=== PATIENT | male | born 1945 | race Caucasian/White ===

== ENCOUNTER → 2018-03-02 08:22 | Outpatient (CLI) | payer MEDICARE, OTHER, SELFPAY ==
[2018-03-02 12:23] LABS: Absolute Lymphocyte Count 1.76 X10^3/ul (0.83-4.51); Basophil# 0.05 X10^3/uL; Basophil% 0.8 % (0-1); Eosinophil# 0.41 X10^3/uL; Eosinophils% 6.2 % (0-5); Hematocrit 40.2 % (40-54); Hemoglobin 13.5 g/dl (13.0-16.5); Lymphocyte # 1.76 X10^3/ul (4.0); Lymphocyte % 26.4 % (19-41); Mean Corp Hgb Conc 33.6 g/gl (32-36); Mean Corpuscular Volume 92.4 fL (80-94); Mean Platelet Vol. 10.6 fl (6.2-12.0); Monocyte# 0.46 X10^3/uL; Monocyte% 6.9 % (0-10); Neutrophil # 3.97 X10^3/uL (2.7-7.7); Neutrophil % 59.5 % (47-70); Platelet Count 238 K/mm3 (150-450); RBC Distribution Width CV 12.3 % (11.6-14.6); RBC Distribution Width SD 40.5 fl (35.1-43.9); Red Blood Count 4.35 M/mm3 (4.6-6.2); White Blood Count 6.7 K/mm3 (4.4-11.0)
[2018-03-02 12:38] LABS: POSITIVE COUNT NO; POSITIVE DIFFERENTIAL NO; POSITIVE MORPHOLOGY NO
[2018-03-02 12:39] LABS: Hemoglobin A1c 6.2 % (4.2-6.3)
[2018-03-02 12:44] LABS: ALB/GLOB Ratio 0.9 RATIO (0.9-2.4); AST(SGOT) 20 U/L (15-37); Alanine Aminotransfer ALT/SGPT 23 U/L (16-61); Albumin, Serum 3.7 g/dL (3.2-5.0); Alkaline Phosphatase 106 U/L (45-117); Anion Gap 8 (5-15); BUN 16 mg/dL (7-18); BUN/Creat Ratio 19.2 RATIO (10-20); Calcium,Total 8.9 mg/dL (8.5-10.1); Chloride 98 mmol/L (98-107); Creatinine, Serum 0.83 mg/dL (0.70-1.30); EST Glomerular Filtration Rate 96 mL/min (>60); Est Glom Filt Rate - Afr Amer 116 mL/min (>60); Globulin 3.9 g/dL (2.2-4.2); Glucose 101 mg/dL (74-106); Potassium 3.9 mmol/L (3.5-5.1); Protein, Total 7.6 g/dL (6.4-8.2); Sodium Level 134 mmol/L (136-145); T4 Free Direct 0.98 ng/dL (0.76-1.46); Thyroid Stim Hormone (TSH) 3.15 uIU/mL (0.358-3.74)
[2018-03-03 16:08] LABS: Free Kappa Light Chains 39.2 mg/L (3.3-19.4); Free Lambda Light Chains 6.2 mg/L (5.7-26.3); Immunoglobulin A 267 mg/dL (61-437); Immunoglobulin G 923 mg/dL (700-1600); Immunoglobulin M 40 mg/dL (15-143); PROEL- A/G Ratio 1.3 (0.7-1.7); PROEL- Alpha-1 Globulin 0.2 g/dL (0.0-0.4); PROEL- Alpha-2 Globulin 0.8 g/dL (0.4-1.0); PROEL- Beta Globulin 1.1 g/dL (0.7-1.3); PROEL- Globulin, Total 3.1 g/dL (2.2-3.9); PROEL- TOTAL PROTEIN 7.1 g/dL (6.0-8.5)
== END ==
PROVIDERS: Family Provider Family Medicine; PCP Family Medicine; Visit Provider Internal Medicine Medical Oncology
DX: R73.01 Impaired fasting glucose (principal); R25.1 Tremor, unspecified; I10 Essential (primary) hypertension; D47.2 Monoclonal gammopathy
CPT/HCPCS: 36415; 80053; 82784; 83036; 83883; 84165; 84439; 84443; 85025

== ENCOUNTER → 2018-08-31 08:52 | Outpatient (CLI) | payer MEDICARE, OTHER, SELFPAY ==
[2018-08-31 12:43] LABS: Absolute Lymphocyte Count 1.77 X10^3/ul (0.83-4.51); Absolute Neutrophil Count 3.5 X10^3/uL (2.0-7.7); Basophil# 0.05 X10^3/uL; Basophil% 0.8 % (0-1); Eosinophil# 0.37 X10^3/uL; Hematocrit 37.4 % (40-54); Hemoglobin 12.7 g/dl (13.0-16.5); Lymphocyte # 1.77 X10^3/ul (4.0); Lymphocyte % 28.8 % (19-41); Mean Corpuscular Hgb 31.5 pg (27.0-32.0); Mean Corpuscular Volume 92.8 fL (80-94); Mean Platelet Vol. 10.6 fl (6.2-12.0); Monocyte# 0.48 X10^3/uL; Monocyte% 7.8 % (0-10); Neutrophil # 3.47 X10^3/uL (2.7-7.7); Neutrophil % 56.4 % (47-70); Platelet Count 230 K/mm3 (150-450); RBC Distribution Width SD 40.7 fl (35.1-43.9); Red Blood Count 4.03 M/mm3 (4.6-6.2); White Blood Count 6.2 K/mm3 (4.4-11.0)
[2018-08-31 12:56] LABS: POSITIVE COUNT NO; POSITIVE DIFFERENTIAL NO; POSITIVE MORPHOLOGY NO
[2018-08-31 13:10] LABS: ALB/GLOB Ratio 0.9 RATIO (0.9-2.4); AST(SGOT) 23 U/L (15-37); Alanine Aminotransfer ALT/SGPT 26 U/L (16-61); Albumin, Serum 3.4 g/dL (3.2-5.0); Alkaline Phosphatase 96 U/L (45-117); Anion Gap 13 (5-15); BUN 16 mg/dL (7-18); BUN/Creat Ratio 19.8 RATIO (10-20); Calcium,Total 8.8 mg/dL (8.5-10.1); Chloride 98 mmol/L (98-107); Creatinine, Serum 0.81 mg/dL (0.70-1.30); EST Glomerular Filtration Rate 99 mL/min (>60); Est Glom Filt Rate - Afr Amer 120 mL/min (>60); Globulin 3.7 g/dL (2.2-4.2); Glucose 115 mg/dL (74-106); Potassium 3.7 mmol/L (3.5-5.1); Protein, Total 7.1 g/dL (6.4-8.2); Sodium Level 135 mmol/L (136-145)
[2018-09-01 15:20] LABS: Free Kappa Light Chains 46.3 mg/L (3.3-19.4); Free Lambda Light Chains 8.2 mg/L (5.7-26.3); Immunoglobulin A 252 mg/dL (61-437); Immunoglobulin G 924 mg/dL (700-1600); Immunoglobulin M 39 mg/dL (15-143); PROEL- A/G Ratio 1.1 (0.7-1.7); PROEL- Albumin 3.5 g/dL (2.9-4.4); PROEL- Alpha-1 Globulin 0.2 g/dL (0.0-0.4); PROEL- Alpha-2 Globulin 0.8 g/dL (0.4-1.0); PROEL- Globulin, Total 3.1 g/dL (2.2-3.9); PROEL- TOTAL PROTEIN 6.6 g/dL (6.0-8.5)
== END ==
PROVIDERS: Internal Medicine Medical Oncology; Family Provider Family Medicine; PCP Family Medicine; Visit Provider Family Medicine
DX: D47.2 Monoclonal gammopathy (principal); I10 Essential (primary) hypertension
CPT/HCPCS: 36415; 80053; 82784; 83883; 84165; 85025

== ENCOUNTER → 2019-02-25 07:59 | Outpatient (CLI) | payer MEDICARE, OTHER, SELFPAY ==
[2019-02-01 11:25] VITALS: BMI 22.2
[2019-02-25 12:16] LABS: Absolute Lymphocyte Count 1.58 X10^3/ul (0.83-4.51); Absolute Neutrophil Count 3.4 X10^3/uL (2.0-7.7); Basophil# 0.06 X10^3/uL; Eosinophil# 0.42 X10^3/uL; Eosinophils% 7.2 % (0-5); Hematocrit 38.3 % (40-54); Hemoglobin 12.9 g/dl (13.0-16.5); Lymphocyte # 1.58 X10^3/ul (4.0); Lymphocyte % 26.9 % (19-41); Mean Corp Hgb Conc 33.7 g/gl (32-36); Mean Corpuscular Hgb 30.6 pg (27.0-32.0); Mean Platelet Vol. 10.3 fl (6.2-12.0); Monocyte# 0.41 X10^3/uL; Neutrophil # 3.39 X10^3/uL (2.7-7.7); Neutrophil % 57.7 % (47-70); POSITIVE COUNT NO; POSITIVE DIFFERENTIAL NO; POSITIVE MORPHOLOGY NO; Platelet Count 203 K/mm3 (150-450); RBC Distribution Width CV 12.4 % (11.6-14.6); RBC Distribution Width SD 40.9 fl (35.1-43.9); Red Blood Count 4.21 M/mm3 (4.6-6.2); White Blood Count 5.9 K/mm3 (4.4-11.0)
[2019-02-25 12:17] LABS: Erythrocyte Sedimentation Rate 3 mm/hr (0-20)
[2019-02-25 12:52] LABS: ALB/GLOB Ratio 1.1 RATIO (0.9-2.4); AST(SGOT) 24 U/L (15-37); Alanine Aminotransfer ALT/SGPT 26 U/L (16-61); Albumin, Serum 3.8 g/dL (3.2-5.0); Alkaline Phosphatase 96 U/L (45-117); Anion Gap 4 (5-15); BUN 17 mg/dL (7-18); Calcium,Total 8.5 mg/dL (8.5-10.1); Chloride 99 mmol/L (98-107); Creatinine, Serum 0.81 mg/dL (0.70-1.30); EST Glomerular Filtration Rate 99 mL/min (>60); Est Glom Filt Rate - Afr Amer 120 mL/min (>60); Globulin 3.5 g/dL (2.2-4.2); Glucose 93 mg/dL (74-106); Potassium 3.7 mmol/L (3.5-5.1); Protein, Total 7.3 g/dL (6.4-8.2); Sodium Level 132 mmol/L (136-145)
[2019-02-26 16:07] LABS: Free Kappa Light Chains 60.4 mg/L (3.3-19.4); Free Lambda Light Chains 6.6 mg/L (5.7-26.3); Immunoglobulin A 258 mg/dL (61-437); Immunoglobulin G 928 mg/dL (700-1600); Immunoglobulin M 39 mg/dL (15-143); PROEL- A/G Ratio 1.4 (0.7-1.7); PROEL- Alpha-1 Globulin 0.3 g/dL (0.0-0.4); PROEL- Alpha-2 Globulin 0.8 g/dL (0.4-1.0); PROEL- Gamma Globulin 0.9 g/dL (0.4-1.8); PROEL- Globulin, Total 2.9 g/dL (2.2-3.9); PROEL- TOTAL PROTEIN 6.9 g/dL (6.0-8.5)
== END ==
PROVIDERS: Family Provider Family Medicine; PCP Family Medicine; Visit Provider Internal Medicine Medical Oncology
DX: I10 Essential (primary) hypertension (principal)
CPT/HCPCS: 80053; 82784; 83883; 84165; 85025; 85652

== ENCOUNTER → 2019-09-13 09:14 | Outpatient (CLI) | payer MEDICARE, OTHER, SELFPAY ==
[2019-03-17 13:00] VITALS: BMI 21.9
[2019-09-13 12:26] LABS: AST(SGOT) 24 U/L (15-37); Alanine Aminotransfer ALT/SGPT 20 U/L (16-61); Albumin, Serum 3.5 g/dL (3.2-5.0); Alkaline Phosphatase 99 U/L (45-117); Anion Gap 8 (5-15); BUN 17 mg/dL (7-18); BUN/Creat Ratio 22.3 RATIO (10-20); Calcium,Total 8.7 mg/dL (8.5-10.1); Chloride 96 mmol/L (98-107); Creatinine, Serum 0.76 mg/dL (0.70-1.30); EST Glomerular Filtration Rate 106 mL/min (>60); Est Glom Filt Rate - Afr Amer 128 mL/min (>60); Globulin 3.5 g/dL (2.2-4.2); Glucose 95 mg/dL (74-106); Potassium 3.8 mmol/L (3.5-5.1); Sodium Level 131 mmol/L (136-145)
[2019-09-13 12:34] LABS: Absolute Lymphocyte Count 1.85 X10^3/uL (0.83-4.51); Absolute Neutrophil Count 3.7 X10^3/uL (2.0-7.7); Basophil# 0.07 X10^3/uL; Basophil% 1.1 % (0-1); Eosinophil# 0.42 X10^3/uL; Eosinophils% 6.4 % (0-5); Hemoglobin 12.3 g/dL (13.0-16.5); Lymphocyte # 1.85 X10^3/ul (4.0); Lymphocyte % 28.1 % (19-41); Mean Corp Hgb Conc 33.2 g/dL (32-36); Mean Corpuscular Hgb 31.3 pg (27.0-32.0); Mean Corpuscular Volume 94.1 fL (80-94); Mean Platelet Vol. 10.2 fl (6.2-12.0); Monocyte# 0.52 X10^3/uL; Monocyte% 7.9 % (0-10); NRBC Flagged by Analyzer 0 % (0-5); Neutrophil % 56.2 % (47-70); Platelet Count 217 K/mm3 (150-450); RBC Distribution Width CV 11.9 % (11.6-14.6); RBC Distribution Width SD 41.1 fl (35.1-43.9); Red Blood Count 3.93 M/mm3 (4.6-6.2); White Blood Count 6.6 K/mm3 (4.4-11.0)
--- NOTE | 2019-09-13 13:00 | RAD_ITS ---
STUDY: X-RAY BONE SURVEY COMPLETE REASON FOR EXAM: Male, 74 years old. MGUS. TECHNIQUE: AP and lateral views of the chest. One view of the pelvis was obtained. 2 views of the cervical spine were obtained. 2 views of the thoracic spine were obtained. 2 views of the lumbar spine were obtained. 1 views of the femur, tibia and fibula. views of the humerus, radius and ulna. : 2 views of the skull were obtained. COMPARISON: None. FINDINGS: CHEST: The lungs are clear and expanded. There is no demonstrated pleural abnormality. There is a right-sided pacemaker in place. Normal size heart. Normal mediastinum and leeanne. Normal visualized pulmonary arteries. There is atherosclerotic calcification of the aortic arch with tortuosity. There are diffuse degenerative changes of the visualized thoracic spine. There is degenerative osteoarthritis of the bilateral shoulders. There is no demonstrated abnormality of the visualized soft tissue structures of the upper abdomen. PELVIS: Abundant fecal debris suggestive of constipation. Normal visualized soft tissue structures. There is narrowing with cortical sclerosis and osteophyte formation of the sacroiliac joint consistent with degenerative osteoarthritic changes. Normal visualized bilateral superior and inferior pubic rami. There are degenerative changes of the pubic symphysis with articular narrowing and sclerosis. Normal ischial tuberosities. Normal visualized right femoral head. There is osteoarthritic spur formation of the right acetabular rim. There is moderate articular joint space narrowing of the right hip. Normal visualized left femoral head. There is osteoarthritic spur formation of the left acetabular rim. There is moderate articular joint space narrowing of the left hip. CERVICAL SPINE: Normal anterior atlantoaxial articulation. Normal odontoid process. Normal cervical lordosis. There is multi-level endplate spondylosis. There is multi-level degenerative disc disease with multilevel disc space narrowing. There is multilevel bilateral facet hypertrophy. The soft tissue structures are unremarkable. THORACIC SPINE: Normal kyphosis of the thoracic spine. There is no substantial scoliosis. There is multilevel endplate spondylosis of the thoracic vertebrae. There is multilevel disc space narrowing of the thoracic spine. No acute fracture. The soft tissue structures are unremarkable. LUMBAR SPINE: Normal lumbar lordosis. There is mild scoliosis, convexity to the left. There is a normal alignment of the vertebrae. There is multilevel endplate spondylosis of the lumbar vertebrae. There is multi-level degenerative disc disease with multi-level disc space narrowing. There is no demonstrated fracture. There is atherosclerotic calcification of the abdominal aorta without a demonstrated aneurysm. RIGHT FEMUR ,TIBIA AND FIBULA: Normal visualized femur, tibia and fibula. Mild edema along the cephalad aspect of the calf. There is no demonstrated fracture or destructive process. LEFT FEMUR ,TIBIA AND FIBULA: Normal visualized femur, tibia and fibula. Mild edema along the cephalad aspect of the calf. There is no demonstrated fracture or destructive process. RIGHT HUMERUS, RADIUS AND ULNA :Normal visualized humerus, radius and ulna. There is no demonstrated fracture or osseous destructive process. There is no demonstrated soft tissue abnormality. LEFT HUMERUS:Normal visualized humerus, radius and ulna. There is no demonstrated fracture or osseous destructive process. There is no demonstrated soft tissue abnormality. SKULL: There is no demonstrated soft tissue swelling. Small lucencies at the level of the parietal bone one on the right measuring 2.5 mm and 2 on the left each measuring approximately 3.4 mm.. Normal visualized facial bones. Normal visualized paranasal sinuses. RAD/Bone Survey Comp(Axial&Append) IMPRESSION: Small lucency within the skull as described above. Underlying multilevel degenerative disease. Electronically Signed: Lisbeth Graves MD at 0:39 EST , Service support ,
[2019-09-14 20:07] LABS: Albumin 3.6 g/dL (2.9-4.4); Alpha-1-Globulins 0.3 g/dL (0.0-0.4); Alpha-2-Globulins 0.8 g/dL (0.4-1.0); Free Kappa Light Chains 56.5 mg/L (3.3-19.4); Free Lambda Light Chains 9.2 mg/L (5.7-26.3); Immunoglobulin A 263 mg/dL (61-437); Immunoglobulin G 973 mg/dL (700-1600); Immunoglobulin M 38 mg/dL (15-143); PROEL- TOTAL PROTEIN 6.7 g/dL (6.0-8.5)
== END ==
PROVIDERS: Family Provider Family Medicine; PCP Family Medicine; Referring Provider Internal Medicine Medical Oncology; Visit Provider Internal Medicine Medical Oncology
DX: D47.2 Monoclonal gammopathy (principal)
CPT/HCPCS: 36415; 77075; 80053; 82784; 83883; 84165; 85025; 86334

== ENCOUNTER → 2019-10-18 09:33 | Outpatient (CLI) | payer MEDICARE, OTHER, SELFPAY ==
[2019-03-17 13:00] VITALS: BMI 21.9
[2019-09-20 13:17] VITALS: BMI 21.9
[2019-10-18 13:19] LABS: Anion Gap 5 (5-15); BUN 16 mg/dL (7-18); BUN/Creat Ratio 20.9 RATIO (10-20); Calcium,Total 8.8 mg/dL (8.5-10.1); Chloride 99 mmol/L (98-107); Creatinine, Serum 0.76 mg/dL (0.70-1.30); EST Glomerular Filtration Rate 105 mL/min (>60); Est Glom Filt Rate - Afr Amer 128 mL/min (>60); Glucose 127 mg/dL (74-106); Potassium 3.8 mmol/L (3.5-5.1); Sodium Level 133 mmol/L (136-145)
== END ==
LOC: LAB.FUTURE 05-04 03:37 → BFHLAB 06-02 15:28
PROVIDERS: Family Provider Family Medicine; PCP Family Medicine; Visit Provider Family Medicine
DX: I10 Essential (primary) hypertension (principal); E87.1 Hypo-osmolality and hyponatremia
CPT/HCPCS: 36415; 80048

== ENCOUNTER → 2020-03-15 08:00 | Outpatient (CLI) | payer MEDICARE, OTHER, SELFPAY ==
[2019-09-20 13:17] VITALS: BMI 21.9
[2020-03-15 12:41] LABS: Absolute Lymphocyte Count 1.77 X10^3/uL (0.83-4.51); Absolute Neutrophil Count 4.2 X10^3/uL (2.0-7.7); Basophil# 0.09 X10^3/uL; Basophil% 1.3 % (0-1); Eosinophil# 0.43 X10^3/uL; Eosinophils% 6.1 % (0-5); Hematocrit 37.4 % (40-54); Hemoglobin 12.8 g/dL (13.0-16.5); Lymphocyte # 1.77 X10^3/ul (4.0); Lymphocyte % 25.2 % (19-41); Mean Corp Hgb Conc 34.2 g/dL (32-36); Mean Corpuscular Hgb 32.4 pg (27.0-32.0); Mean Corpuscular Volume 94.7 fL (80-94); Mean Platelet Vol. 10.1 fl (6.2-12.0); Monocyte# 0.52 X10^3/uL; Monocyte% 7.4 % (0-10); NRBC Flagged by Analyzer 0 % (0-5); Neutrophil # 4.19 X10^3/uL (2.7-7.7); Neutrophil % 59.6 % (47-70); Platelet Count 231 K/mm3 (150-450); RBC Distribution Width CV 12.1 % (11.6-14.6); RBC Distribution Width SD 42.2 fl (35.1-43.9); Red Blood Count 3.95 M/mm3 (4.6-6.2)
[2020-03-15 12:43] LABS: AST(SGOT) 23 U/L (15-37); Alanine Aminotransfer ALT/SGPT 23 U/L (16-61); Albumin, Serum 3.6 g/dL (3.2-5.0); Alkaline Phosphatase 107 U/L (45-117); Anion Gap 7 (5-15); BUN 18 mg/dL (7-18); BUN/Creat Ratio 23.3 RATIO (10-20); Bilirubin, Direct 0.17 mg/dL (0.00-0.30); Calcium,Total 8.8 mg/dL (8.5-10.1); Chloride 98 mmol/L (98-107); Cholesterol 159 mg/dL (200); Creatinine, Serum 0.77 mg/dL (0.70-1.30); EST Glomerular Filtration Rate 104 mL/min (>60); Est Glom Filt Rate - Afr Amer 126 mL/min (>60); Globulin 3.7 g/dL (2.2-4.2); Glucose 98 mg/dL (74-106); High Density Lipoprotein 53 mg/dL; LDH 236 U/L (87-241); Potassium 3.7 mmol/L (3.5-5.1); Protein, Total 7.3 g/dL (6.4-8.2); Sodium Level 134 mmol/L (136-145); Triglycerides 86 mg/dL; Very Low Density Lipoprotein 17 mg/dL (5-40)
[2020-03-18 03:06] LABS: Albumin 3.8 g/dL (2.9-4.4); Alpha-1-Globulins 0.3 g/dL (0.0-0.4); Alpha-2-Globulins 0.7 g/dL (0.4-1.0); Gamma Globulin 0.9 g/dL (0.4-1.8); Immunoglobulin A 284 mg/dL (61-437); Immunoglobulin G 972 mg/dL (603-1613); Immunoglobulin M 30 mg/dL (15-143); PROEL- TOTAL PROTEIN 6.7 g/dL (6.0-8.5)
[2020-03-18 12:52] LABS: Immunoglobulin E 3 IU/mL (6-495)
== END ==
PROVIDERS: PCP Family Medicine; Referring Provider Internal Medicine Cardiovascular Disease; Visit Provider Internal Medicine Medical Oncology
DX: D47.2 Monoclonal gammopathy (principal); E78.5 Hyperlipidemia, unspecified
CPT/HCPCS: 36415; 80053; 80061; 82248; 82784; 82785; 83615; 84165; 85025; 86334

== ENCOUNTER 2020-12-21 21:27 | Outpatient (RCR) | payer MEDICARE, OTHER, SELFPAY ==
[2020-09-19 13:41] VITALS: BMI 21.4
[2020-12-21] MEDS: COVID-19 VACC, MRNA(PFIZER)/PF 30 MCG/0.3 ML SYRINGE IM (09:58)
[2021-01-11] MEDS: COVID-19 VACC, MRNA(PFIZER)/PF 30 MCG/0.3 ML SYRINGE IM (09:54)
== END 2021-03-20 23:59 ==
LOC: IMMUN 21:27
PROVIDERS: PCP Family Medicine; Visit Provider Family Medicine
DX: Z23 Encounter for immunization (principal)
CPT/HCPCS: 0001A; 0002A; 91300

== ENCOUNTER 2021-04-18 10:25 | Day surgery (SDC) | payer MEDICARE, OTHER, SELFPAY ==
[2021-03-21 13:37] VITALS: BMI 21.3
--- NOTE | 2021-04-12 09:44 | EKG12_ITS ---
Test Reason : PREOP Blood Pressure : / mmHG Vent. Rate : 065 BPM Atrial Rate : 065 BPM P-R Int : 300 ms QRS Dur : 088 ms QT Int : 410 ms P-R-T Axes : 082 061 058 degrees QTc Int : 426 ms Sinus rhythm with 1st degree A-V block Otherwise normal ECG Confirmed by LUISITO ARELLANO, DAMIR ([id number]), supervising editor news reel OLIVER DAS ([id number]) on 04/13/2021 12:47:36 PM Referred By: Jovanni Granda Confirmed By:MITRA JORGE MD
[2021-04-12 10:41] LABS: Partial Thromboplast Time 29.2 Seconds (24.1-36.2)
[2021-04-18] VITALS (12 sets, daily range): BP systolic 109–142; BP diastolic 61–81; PULSE 60–69; RESP 14–16; TEMP 35.6–36.9; O2SAT 96–100; BMI 19.8
[2021-04-18] MEDS: Lactated Ringers 1,000 ML 100 ML IV ×2 (11:13→14:47)
--- NOTE | 2021-04-18 12:45 | PROS_PTH ---
PATIENT: FELI CASTILLO LOC: [facility] [place] U#:[id number] AGE/SX: 76/M ROOM: RE04/18/[address]: Dr. Jovanni Granda MD : 1945 BED: DIS: 04/20/2021 SPEC #: [id number] RECD: 04/19/21 06:34 STATUS: RACHEL DOMINGUEZ #: [id number] EDWARD: 04/18/21 12:[address]: Jovanni Granda DEPT: SURGICAL PATHOLOGY RECD BY: Echo Chacon ENTERED: 04/19/21 07:40 SP TYPE: TURP OTHR DR: Dr. Bruce Washington MD Tissues: Prostate, NOS Procedures: Surgery Specimen Level IV HEADER OPERATION: Cystoscopy, transurethral resection of prostate PRE-OP DIAGNOSIS: BPH with obstruction/lower urinary tract symptoms TISSUE SUBMITTED: Prostate tissue MICROSCOPIC DIAGNOSIS Prostate, transurethral resection: Benign nodular hyperplasia, glandular and stromal types. Chronic inflammation. Urothelium with mild chronic inflammation. AM:ascencion 04/20/2021 MICROSCOPIC DESCRIPTION Slides are reviewed. GROSS DESCRIPTION Received is one container labeled with the patient's name and designated prostate tissue. The specimen consists of multiple irregular fragments of pink-yu, rubbery, soft tissue that in aggregate weigh 8.5 gm and measure in aggregate 6 x 4 x 0.5 cm. The entire specimen is submitted in six cassettes. / AM:ascencion 04/19/21 TC:3 CPT: 73894
--- NOTE | 2021-04-18 13:13 | HP.PCM_ITS ---
HPI - General HPI Narrative FELI CASTILLO, is a 76 M who presents for transurethral resection of the prostate he has a very distended bladder and has obstructive prostate very high symptom score difficulty emptying his bladder all the way incomplete emptying. He has been on maximal medical therapy and we plan to proceed with surgical r eview revision of the prostate with a TURP. [facility] Medical History (Updated 04/18/21 @ 13:[address] Jovanni Granda MD) Benign essential tremor Cardiac pacemaker in situ (~2006) Cardiology follow-up encounter Carotid artery disease Former smoker GERD (gastroesophageal reflux disease) High cholesterol History of atrial fibrillation History of pacemaker History of stress test History of vertigo Hx of echocardiogram Hyperlipidemia Low iron MGUS (monoclonal gammopathy of unknown significance) Ocular hypertension Paroxysmal atrial flutter Prostate disease Seizures Sick sinus syndrome Wears glasses Home Medications Lactobac acidoph-fructooligos 1 ea PO DAILY 06/27/16 [History Last Taken U nknown] cholecalciferol (vitamin D3) 1,000 unit PO DAILY 06/27/16 [History Last Taken Unknown] lamotrigine 50 mg PO BID 06/27/16 [History Last Taken 04/18/21] levetiracetam 750 mg PO BID 06/27/16 [History Last Taken 04/18/21] loratadine 10 mg PO PRN PRN 06/27/16 [History Last Taken Unknown] multivitamin with folic acid 1 tab PO DAILY 06/27/16 [History Last Taken Unknown] qb-hj-QE-vit E-ysfnd-cptx-zeax 1 ea PO DAILY 06/27/16 [History Last Taken Unknown] omeprazole 20 mg PO DAILY 06/27/16 [History Last Taken 04/18/21] pravastatin 40 mg PO DAILY 06/27/16 [History Last Taken Unknown] temazepam 30 mg PO QHS 06/27/16 [History Last Taken Unknown] aspirin 325 mg PO DAILY@0800 09/10/17 [History Last Taken 04/09/21] ascorbic acid (vitamin C) 1,000 mg tablet 1 g PO QDAY tab 12/12/17 [History Last Taken Unknown] quinapril 10 mg tablet 5 mg PO DAILY tab 02/14/20 [History Last Taken 04/18/21] timolol 0.5 % eye drops 1 drp RIGHT EYE BID 02/14/20 [History Last Taken Unknown] latanoprost 1 drp EACH EYE DAILY 04/11/21 [History Last Taken Unknown] omega 8-dyn-hrm-fish oil [Fish Oil] 1 cap PO TID 04/11/21 [History Last Taken 04/11/21] ciprofloxacin HCl [Cipro] 500 mg PO BID #14 tab 04/18/21 [Rx Last Taken Unknown] Allergy/AdvReac Type Severity Reaction Status Date / Time carbamazepine Allergy disorientation Verified 04/18/21 10:31 and elevated anxiety,fluid retention codeine AdvReac Vomiting Verified 04/18/21 10:31 guaifenesin AdvReac Vomiting Verified 04/18/21 10:31 [From [facility]] Family History Mother CVA (cerebral vascular accident) Diabetes Father Hypertension Surgical History (Updated 04/11/21 @ 10:24 by Izabel Nugent) History of arthroscopy of right knee History of cataract surgery History of detached retina repair Hx of colonoscopy Social History Smoking Status: Former smoker alcohol intake: never substance use type: does not use ROS Constitutional Constitutional: Denies chills, fever(s) or malaise Eyes Eyes: Denies blurry vision or change in vision ENT HEENT: Reports none Cardiovascular Cardiovascular: Denies chest pain or palpitations Respiratory/Chest Respiratory/Chest: Denies cough or shortness of breath with exertion Gastrointestinal Gastrointestinal: Denies abdominal pain, constipation or diarrhea Genitourinary Genitourinary: Reports systems reviewed and no addt'l complaints, except as documented Musculoskeletal Musculoskeletal: Denies back pain, joint stiffness or joint swelling Integumentary Integumentary: Denies dry skin, jaundice, lesions or rash Neurologic Neurologic: Denies confusion, syncope or weakness Psychiatric Psychiatric: Reports none; Denies anxiety or depression Endocrine Endocrinology: Denies excessive sweating, fatigue or flushing Hematologic/Lymphatic Hematologic/Lymphatic: Denies anemia, easy bleeding or easy bruising Vital Signs Vital Signs Vital Signs: 04/18/21 10:55 Temperature 97.3 F L Temperature Source Temporal Pulse Rate 63 Respiratory Rate 16 Respiratory Pattern Normal Blood Pressure 116/61 Blood Pressure Mean 79 Blood Pressure Source Monitor Blood Pressure Position Semi-Fowlers Blood Pressure Location Left Arm Pulse Ox 99 Oxygen Delivery Method Room Air Weight Weight: 59.2 kg Body Mass Index (BMI) 19.8 Physical Exam Const alert and oriented x3 General Appearance: cooperative HEENT normocephalic, head/scalp atraumatic, EAC's normal and TM's normal bilaterally Eyes PERRL and EOMs intact bilaterally Pupil: sluggish Neck no lymphadenopathy, supple and no JVD General: trachea midline Lymph Lymphatic: no lymphadenopathy noted, lymphedema and lymphadenopathy Resp normal respiratory effort, normal air movement and clear to auscultation bilaterally Cardio regular rate, regular rhythm and peripheral pulses 2+ throughout GI soft to palpation, non-tender and non-distended Extremity normal capillary refill and no clubbing, cyanosis or edema General Extremity: no tenderness to palpation of joints or extremities Skin no rashes or lesions noted General Skin Exam: turgor normal Lesions: no lesions Rashes: no rashes Neuro CN's II-XII intact bilaterally Speech: speech normal Motor Exam: strength 5/5 throughout; Negative for general weakness Psych thought process normal, cooperative and affect normal Appearance: appropriate Assessment & Plan Assessment/Plan (1) BPH with obstruction/lower urinary tract symptoms: PLAN: Plan to proceed with a transurethral resection of the prostate
--- NOTE | 2021-04-18 13:14 | PCM.DC ---
Discharge Instructions Diet Discharge Diet: No restrictions Activity Discharge Activity: Return to Normal Activity and May Not Drive (while taking narcotic pain medications.) Dressing / Incision Call your doctor if you observe: Fever of 101 or Higher Follow Up Care Please Follow Up With: Jovanni Granda MD When: Call [phone] for an appointment Test Results: Test results from this visit will be discussed in further detail at your follow-up appointment, if applicable. Discharge Plan Admission Primary Reason for Your Visit: tur Attending Provider: Jovanni Granda Primary Care Provider: Bruce Washington Instructions Patient Instructions: [facility] Home Recovery Discharge Orders/Prescriptions Prescriptions: New ciprofloxacin HCl [Cipro] 500 mg tablet 500 mg PO BID Qty: 14 RF: 0 Continued ascorbic acid (vitamin C) 1,000 mg tablet 1 g PO QDAY RF: 0 timolol 0.5 % drops 1 drp RIGHT EYE BID RF: 0 pravastatin 40 MG tablet 40 mg PO DAILY RF: 0 temazepam 30 MG capsule 30 mg PO QHS RF: 0 omeprazole 20 MG capsule 20 mg PO DAILY RF: 0 levetiracetam 750 MG tablet 750 mg PO BID RF: 0 lamotrigine 100 MG tablet 50 mg PO BID RF: 0 loratadine 10 MG tablet 10 mg PO PRN PRN (Reason: Allergies) RF: 0 cholecalciferol (vitamin D3) 1,000 UNIT tablet 1,000 unit PO DAILY RF: 0 multivitamin with folic acid 1 TABLET tablet 1 tab PO DAILY RF: 0 bx-vc-UE-vit L-rywhf-pkmi-zeax 1 EACH tablet 1 ea PO DAILY RF: 0 Lactobac acidoph-fructooligos 1 EACH tablet 1 ea PO DAILY RF: 0 quinapril 10 mg tablet 5 mg PO DAILY RF: 0 latanoprost 0.005 % Drops 1 drp EACH EYE DAILY RF: 0 omega 5-cho-ijn-fish oil [Fish Oil] 1,200 (144-216) mg Capsule 1 cap PO TID RF: 0 Held aspirin 325 MG tablet 325 mg PO DAILY@0800 RF: 0 Hold Instructions: Resume on 05/02/21. Discontinued finasteride 5 mg tablet 5 mg PO DAILY RF: 0 tamsulosin 0.4 MG capsule 0.4 mg PO DAILY RF: 0 Referrals / Follow Up: Jovanni Granda MD [STAFF PHYSICIAN] - Bruce Washington MD [Primary Care Provider] - Disposition Disposition (needs filled in before D/C Order can be placed): Home, Self Care
[2021-04-18] MEDS: Cefazolin 2 GM in 0.9% Normal Saline 100 ML IV (13:28)
[2021-04-18] MEDS: Lubricating Jelly 60 GM Tube 30 GM TOPICAL (13:41)
--- NOTE | 2021-04-18 14:20 | PCM.OPRPT ---
Report of Operation Date of Procedure: 04/18/21 Pre-Operative Diagnosis: BPH with obstruction retention of urine Post-Operative Diagnosis: Same Surgery/Procedure Performed:: Transurethral section of prostate Description of Surgical Findings:: In the preoperative setting I discussed with the patient how the surgery would be done with expect afterwards. We discussed how a prostate resection is done and we discussed the risk of the surgery including, bleeding, infection, retrograde ejaculation, changes with ejaculation or intercourse,. We discussed the possibility that the resection of the prostate may not alleviate his urinary symptoms. We discussed the small risk of developing scar tissue along the urethral channel and strictures. We also discussed the chance of the prostate could grow back and he may need further surgery or treatment in the future for prostate problems. Patient was taken back to the operating room, timeout procedure was performed, he was identified and marked and placed on the operating room table. He underwent general anesthesia. He was placed in dorsolithotomy position. Penis and testicles were prepped and draped in usual sterile fashion. Went into the bladder using the visual obturator with a resectoscope. Once inside the bladder identified the right and left ureteral orifice. I then identified the prostate and the anatomy of the prostate. I marked out the area of the sphincter and the verumontanum was identified. I then proceeded with the prostate resection first resected the median lobe. And then resected the right lobe of the prostate. Then to resect the left lobe of the prostate. I then resected the apical tissue of the prostate. Made sure that there was no injury to the sphincter or the verumontanum was still intact. At the end of the resection all the chips were Ellik out of the bladder. I then identified the left and right ureteral orifice and these were confirmed to be in good position and effluxing and not injured. The resectoscope was removed, a 22 German catheter was placed into the bladder on continuous irrigation. And the urine was fairly light pink color and draining normally. He was taken back to the PACU in good condition. Of note he had a very stretched out bladder noticed at the end of the case, very atonci looking bladder. Surgeon: Jovanni Granda Type of Anesthesia: General Drains: 22 German three-way Admit VTE Documentation VTE Present on Admission: No VTE Mechan Device Prophylaxis: SCD's
[2021-04-18] MEDS: Ketorolac 15 MG/ML Vial IV (15:30)
[2021-04-18] MEDS: Pravastatin 40 MG Tablet PO (20:29)
[2021-04-18] MEDS: levETIRAcetam 750 MG Tablet PO (20:29)
[2021-04-18] MEDS: lamoTRIgine 100 MG Tablet 50 MG PO (20:29)
[2021-04-18] MEDS: Docusate Sodium 100 MG Capsule 200 MG PO (20:29)
[2021-04-18] MEDS: Timolol 0.5% 5ML OPTH.BTL 1 DRP RIGHT EYE (20:29)
[2021-04-18] MEDS: 0.9% Normal Saline 1,000 ML 125 ML IV ×2 (20:34→22:31)
[2021-04-18] MEDS: Ciprofloxacin 400 MG/200 ML BAG 200 MG IV (21:24)
[2021-04-18] MEDS: Temazepam 15 MG Capsule 30 MG PO (22:30)
[2021-04-19 00:49] VITALS: BP 123/62; PULSE 60; RESP 16; TEMP 36.4; O2SAT 98
[2021-04-19 04:49] VITALS: BP 113/64; PULSE 60; RESP 16; TEMP 36.6; O2SAT 97
[2021-04-19] MEDS: Docusate Sodium 100 MG Capsule 200 MG PO ×2 (08:34→20:01)
[2021-04-19] MEDS: levETIRAcetam 750 MG Tablet PO ×2 (08:35→20:00)
[2021-04-19] MEDS: Pantoprazole Sodium 20 MG Tablet PO (08:44)
[2021-04-19] MEDS: Ciprofloxacin 400 MG/200 ML BAG 200 MG IV (08:44)
[2021-04-19] MEDS: Lisinopril 5 MG Tablet PO (08:45)
[2021-04-19] MEDS: lamoTRIgine 100 MG Tablet 50 MG PO ×2 (08:45→20:00)
[2021-04-19] MEDS: Latanoprost 0.005% 1 Bottle 1 DRP EACH EYE (08:47)
[2021-04-19] MEDS: Timolol 0.5% 5ML OPTH.BTL 1 DRP RIGHT EYE ×2 (08:50→20:01)
[2021-04-19 09:00] VITALS: BP 116/56; PULSE 60; RESP 18; TEMP 36.4; O2SAT 100
--- NOTE | 2021-04-19 14:58 | NURSING ---
Pt has only voided 175ml post vizcarra removal and bladder scanned for 753.
--- NOTE | 2021-04-19 15:06 | CHAPLAIN ---
Type of Pastoral Visit _x__ Initial Visit ___ Follow-up Visit ___ On-call Visit ___ General Patient Visit ___ Spiritual Assessment ___ Family Conference ___ Bereavement ___ Rapid Response ___ Code Blue ___ Other (describe below) Pastoral Care Referral From _x__ Patient ___ Family ___ Nurse ___ Physician ___ Family Services Manager ___ Founder Chairman And Chief Creative Officer ___ Other (describe below) Sacrament/Intervention _x__ Active listening ___ Anointing ___ Rastafari _x__ Bereavement ___ Communion ___ Day exploration ___ _x__ Life review _x__ Prayer ___ Reconciliation ___ Sacrament of Sick _x__ Supportive presence ___ Wedding ___ Other (describe below) Pastoral Comments patient remembers this mule developer due to fact that his was a patient in hospital before she in 2019; pt talks extensively about his and his grieving process; pt states he has not been able to talk to someone about this experience/emotions and so appreciates this opportunity given to revisit these feelings and express them; pt welcomes spiritual care support and prayers
--- NOTE | 2021-04-19 15:28 | NURSING ---
Pt voided again, voided another 100cc of bright red blood. This nurse bladder scanned pt again per pt request and it was 735ml.
[2021-04-19 15:29] VITALS: BP 156/59; PULSE 60; RESP 18; TEMP 36.4; O2SAT 100
[2021-04-19] MEDS: Pravastatin 40 MG Tablet PO (18:42)
[2021-04-19 21:30] VITALS: BP 132/64; PULSE 64; RESP 16; TEMP 36.8; O2SAT 97
[2021-04-19] MEDS: Temazepam 15 MG Capsule 30 MG PO (23:24)
[2021-04-20 03:26] VITALS: BP 141/75; PULSE 66; RESP 16; TEMP 36.8; O2SAT 98
[2021-04-20] MEDS: Pantoprazole Sodium 20 MG Tablet PO (07:06)
--- NOTE | 2021-04-20 07:52 | PCM.PN.BLA ---
Progress Note dc vizcarra home after voids pt refused to go home yesterday
[2021-04-20 08:34] VITALS: BP 157/80; PULSE 64; RESP 18; TEMP 37.2; O2SAT 100
[2021-04-20] MEDS: Docusate Sodium 100 MG Capsule 200 MG PO (08:35)
[2021-04-20] MEDS: lamoTRIgine 100 MG Tablet 50 MG PO (08:36)
[2021-04-20] MEDS: levETIRAcetam 750 MG Tablet PO (08:36)
[2021-04-20] MEDS: Lisinopril 5 MG Tablet PO (08:36)
[2021-04-20] MEDS: Latanoprost 0.005% 1 Bottle 1 DRP EACH EYE (08:37)
[2021-04-20] MEDS: Timolol 0.5% 5ML OPTH.BTL 1 DRP RIGHT EYE (08:38)
--- NOTE | 2021-04-20 12:25 | CASEMGMT ---
VIRGINIA DAVISON in to pt room per request of charge nurse to discuss HHC. Discussed with pt his vizcarra catheter. He is wishing to have HHC come daily to change his leg bag to vizcarra bag. Made pt aware that HHC could not come daily to do this. Pt does not qualify as he is not homebound either. Pt states he has no one who is able to help him. He states he wished he did not have this surgery. Discussed the option of private duty to come for this. Pt is agreeable to receiving list. Discussed with patient the option of going home with a vizcarra bag instead of leg bag as it would require less emptying and less changing back and forth. Pt instructed on keeping bag lower than bladder level. He verbalizes understanding. Pt asked if there is a canvas pouch that the vizcarra could go in. This CM is not aware of this. Updated charge nurseEvelia of plan for vizcarra bag at home with private duty list. 1245- RN CM back to pt room to provide private duty list. Pt states he just got off the phone with his friend who is a WOOD MOLDER. She is agreeable to coming over nightly to switch leg bag to vizcarra. Private duty list still given. Updated charge nurse of new plan. Pt denies further needs.
== END 2021-04-20 13:15 | disposition home or self-care (01) ==
LOC: SDC 10:26 → AC 13:10 → MS3 04-19 10:42
PROVIDERS: Anesthesiology; PCP Family Medicine; Referring Provider Urology; Visit Provider Urology
PROC: (CPT 52601; principal; 2021-04-18 12:35)
DX: N40.1 Benign prostatic hyperplasia with lower urinary tract symptoms (principal); N13.8 Other obstructive and reflux uropathy; R33.8 Other retention of urine; N39.490 Overflow incontinence; R35.0 Frequency of micturition; R39.14 Feeling of incomplete bladder emptying; R35.1 Nocturia; N32.89 Other specified disorders of bladder; I48.92 Unspecified atrial flutter; D47.2 Monoclonal gammopathy; E78.5 Hyperlipidemia, unspecified; Z79.82 Long term (current) use of aspirin; Z79.899 Other long term (current) drug therapy; Z87.891 Personal history of nicotine dependence; Z95.0 Presence of cardiac pacemaker
CPT/HCPCS: 52601; 36415; 85730; 88305; 93005; 99251; J7030; J7120; G0463; J0744; J2405

== ENCOUNTER → 2021-07-06 12:25 | Outpatient (CLI) | payer MEDICARE, OTHER, SELFPAY ==
--- NOTE | 2021-07-06 14:11 | TELEMED_ITS ---
[facility] Telemed has confirmed receipt of a request for visit. This document confirms receipt of the order initiating the consult. To find the results of the consultation, please view the patient's reports for the scanned Telemed Consult.
== END ==
PROVIDERS: PCP Family Medicine; Referring Provider Psychiatry & Neurology Neurology; Visit Provider Psychiatry & Neurology Neurology
DX: G40.909 Epilepsy, unspecified, not intractable, without status epilepticus (principal)
CPT/HCPCS: 95819

== ENCOUNTER 2021-12-16 13:11 | Emergency (ER) | payer MEDICARE, OTHER, SELFPAY ==
[2021-12-16 13:12] VITALS: BP 143/94; PULSE 86; RESP 18; TEMP 36.1; O2SAT 98; BMI 21.6
--- NOTE | 2021-12-16 13:29 | US_ITS ---
STUDY: SCROTUM ULTRASOUND REASON FOR EXAM: Male, 76 years old. Pain TECHNIQUE: Ultrasound evaluation of the scrotum was performed with color Doppler and static madrid-scale imaging. COMPARISON: None. FINDINGS: RIGHT TESTICLE INTRATESTICULAR: There is a normal size of the right testicle. The right testicle measures 2.5 x 3.3 x 2.4 cm. There is a homogenous echotexture. There is normal arterial and normal venous vascularity. There is no demonstrated right testicular mass or cyst. EXTRATESTICULAR: The epididymis is normal in size. The epididymis head measures 1.2 x 1.4 x 0.6 cm. There is normal vascularity of the epididymis. There is a well-defined cystic structure within the epididymis, without internal echoes, consistent with an epididymal cyst. There is no demonstrated hydrocele. There is no demonstrated varicocele. There is no demonstrated extratesticular mass or cyst. LEFT TESTICLE INTRATESTICULAR: There is a normal size of the left testicle. The left testicle measures 3.7 x 2.7 x 2.4 cm. There is a homogenous echotexture. There is increased arterial and increased venous vascularity. There is no demonstrated left testicular mass or cyst. EXTRATESTICULAR: The epididymis is enlarged. The epididymis head measures 1.2 x 3.0 x 0.8 cm. There is increased (hyperemic) vascularity of the epididymis. There is a well-defined cystic structure within the epididymis, without internal echoes, consistent with an epididymal cyst. There is a small hydrocele. There is no demonstrated varicocele. There is no demonstrated extratesticular mass or cyst. US/Testicular with Arterial Flow IMPRESSION: No testicular torsion. Suspect left epididymoorchitis. Electronically Signed: Nas Castillo MD at 15:45 EST ,
--- NOTE | 2021-12-16 13:29 | EX.ED.GUMALE ---
HPI History of Present Illness Chief Complaint: Male Pain/Injury Narrative Narrative: Patient with past medical history of benign prostatic hypertrophy, has to self cath at least twice a day presents with pain in his left testicle that he has had since yesterday. He states that he got up after doing a jigsaw puzzle and felt pain on the underside of his left testicle. He thought that maybe he had pulled a muscle in his groin, but his symptoms have not improved. He has pain that is worse with movement of his leg and of his testicle. He denies any dysuria other than the fact that he does have to use a lubricated catheter because he has low flow problems with urine. He denies any fevers or chills. No trauma to the area. He denies any erythema or noted swelling of his testicle. No gross hematuria. [facility] Medical History Benign essential tremor Cardiac pacemaker in situ (~2006) Cardiology follow-up encounter Carotid artery disease Former smoker GERD (gastroesophageal reflux disease) High cholesterol History of atrial fibrillation History of pacemaker History of stress test History of vertigo Hx of echocardiogram Hyperlipidemia Low iron MGUS (monoclonal gammopathy of unknown significance) Ocular hypertension Paroxysmal atrial flutter Prostate disease Seizures Sick sinus syndrome Wears glasses Home Medications Lactobac acidoph-fructooligos 1 ea PO DAILY 06/27/16 [History Last Taken Unknown] cholecalciferol (vitamin D3) 1,000 unit PO DAILY 06/27/16 [History Last Taken Unknown] loratadine 10 mg PO PRN PRN 06/27/16 [History Last Taken Unknown] multivitamin with folic acid 1 tab PO DAILY 06/27/16 [History Last Taken Unknown] ml-fh-WO-vit E-ootur-juqu-zeax 1 ea PO DAILY 06/27/16 [History Last Taken Unknown] omeprazole 20 mg PO DAILY 06/27/16 [History Last Taken 04/18/21] pravastatin 40 mg PO DAILY 06/27/16 [History Last Taken Unknown] temazepam 30 mg PO QHS 06/27/16 [History Last Taken Unknown] aspirin 325 mg PO DAILY@0800 09/10/17 [History Last Taken 04/09/21] ascorbic acid (vitamin C) 1,000 mg tablet 1 g PO QDAY tab 12/12/17 [History Last Taken Unknown] quinapril 10 mg tablet 5 mg PO DAILY tab 02/14/20 [History Last Taken 04/18/21] timolol 0.5 % eye drops 1 drp RIGHT EYE BID 02/14/20 [History Last Taken Unknown] latanoprost 1 drp EACH EYE DAILY 04/11/21 [History Last Taken Unknown] omega 4-uin-xdu-fish oil [Fish Oil] 1 cap PO TID 04/11/21 [History Last Taken 04/11/21] levetiracetam 750 mg tablet 750 mg PO BID #180 tab 06/14/21 [Rx Last Taken Unknown] bethanechol chloride 5 mg tablet 5 mg PO TID 09/13/21 [History Last Taken Unknown] lamotrigine 100 mg tablet 50 mg PO BID #90 tab 12/13/21 [Rx Last Taken Unknown] ciprofloxacin HCl 500 mg PO BID #28 tab 12/16/21 [Rx Last Taken Unknown] Allergy/AdvReac Type Severity Reaction Status Date / Time carbamazepine Allergy disorientation Verified 12/16/21 13:15 and elevated anxiety,fluid retention codeine AdvReac Vomiting Verified 12/16/21 13:15 guaifenesin AdvReac Vomiting Verified 12/16/21 13:15 [From [facility]] Family History Mother CVA (cerebral vascular accident) Diabetes Father Hypertension Surgical History History of arthroscopy of right knee History of cataract surgery History of detached retina repair Hx of colonoscopy Social History Smoking Status: Former smoker alcohol intake: never substance use type: does not use ROS ROS ED ROS Narrative Constitutional: No fever, no chills. HEENT: No sore throat. No neck pain. No loss of vision. No rhinorrhea. Cardiovascular: No chest pain. No palpitations. No pedal edema. Respiratory: No cough, no shortness of breath. Abdominal: No abdominal pain. No nausea. No vomiting. Genitourinary: No dysuria except for baseline low flow requiring catheterization. No hematuria. Positive left testicular pain. Musculoskeletal: No myalgias. No arthralgias. Neurologic: No headaches. No dizziness. No lightheadedness. Skin: No rash. No change in color. Psychiatric: No depression. No anxiety. EXAM Physical Exam Narrative Exam Narrative: Afebrile. Vital signs noted. HEENT: Normocephalic. Atraumatic. PERRL, EOMI. Neck soft and supple. No point tenderness or step off. Cardiovascular: Regular rate and rhythm. No murmurs, rubs, or gallops appreciated. Respiratory: No tachypnea. Lungs clear to auscultation bilaterally. Gastrointestinal: Abdomen soft, nontender, with normoactive bowel sounds. No rebound or guarding. Neurological: Awake. Alert. Nonfocal, nonlateralizing. Skin: No rash. Normal color. No pallor. Musculoskeletal: No pedal edema. Full range of motion extremities. Genitourinary: Chaperoned examination reveals left epididymal tenderness and tenderness to palpation of left testicle. No noted hernia. No blood or discharge at penile meatus. Const Vital Signs: 12/16/21 13:12 Temperature 96.9 F L Temperature Source Temporal Pulse Rate 86 Respiratory Rate 18 Blood Pressure 143/94 H Blood Pressure Mean 110 Pulse Ox 98 Oxygen Delivery Method Room Air MDM MDM MDM Narrative Medical decision making narrative: Urinalysis will be obtained. I do feel that given his testicular pain that he requires ultrasound to rule out any testicular torsion. His urinalysis shows 0-5 WBCs and negative nitrites. His ultrasound shows no evidence of testicular torsion, but there is suspected left epididymoorchitis. At this point in time, he was given his first dose of ciprofloxacin here in the emergency department and prescription written for the next 2 weeks. He will follow up with his urologist, Dr. Granda in the next 3 to 5 days. I feel he can be discharged safely home with follow-up. He will continue to self cath as needed as he will be on antibiotics. He was told to wear more supportive undergarments. Return instructions to the emergency department were reviewed. Disposition is discharged home in stable condition. Lab Data Attestation: I reviewed the patient's lab results. Labs: Laboratory Results - last 24 hr 12/16/21 14:00 Urine Color Yellow Urine Clarity Clear Urine pH 7.0 Ur Specific [place] 1.010 Urine Protein 30 H Urine Glucose (UA) Normal Urine Ketones 15 H Urine Occult Blood NEGATIVE Urine Nitrite NEGATIVE Urine Bilirubin Negative Urine Urobilinogen Normal Ur Leukocyte Esterase 25 H Urine RBC 0 SEEN Urine WBC 0-5 SEEN Ur Squamous Epith Cells 0 SEEN Urine Bacteria 0 SEEN Urine Mucus 0 SEEN Radiography Diagnostic Testing: Clinical Impression(s) from Imaging Studies Testicular Ultrasound 12/16/21 13:29 IMPRESSION: No testicular torsion. Suspect left epididymoorchitis. Electronically Signed: Nas Castillo MD at 15:45 EST Reading Location ID and State: [facility] / [place] Tel , Service support , Discharge Plan Triage Chief Complaint: Male Pain/Injury ED Provider: Donn Hill Dx/Rx/DC Orders Clinical Impression: Epididymoorchitis, Pain in testicle Instructions: ED Epididymitis, ED Orchitis Prescriptions: New ciprofloxacin HCl 500 mg tablet 500 mg PO BID Qty: 28 RF: 0 No Action ascorbic acid (vitamin C) 1,000 mg tablet 1 g PO QDAY RF: 0 timolol 0.5 % drops 1 drp RIGHT EYE BID RF: 0 bethanechol chloride 5 mg tablet 5 mg PO TID RF: 0 levetiracetam 750 mg tablet 750 mg PO BID Qty: 180 RF: 1 pravastatin 40 MG tablet 40 mg PO DAILY RF: 0 temazepam 30 MG capsule 30 mg PO QHS RF: 0 omeprazole 20 MG capsule 20 mg PO DAILY RF: 0 loratadine 10 MG tablet 10 mg PO PRN PRN (Reason: Allergies) RF: 0 cholecalciferol (vitamin D3) 1,000 UNIT tablet 1,000 unit PO DAILY RF: 0 multivitamin with folic acid 1 TABLET tablet 1 tab PO DAILY RF: 0 wr-hp-BR-vit V-fpqgf-chkj-zeax 1 EACH tablet 1 ea PO DAILY RF: 0 Lactobac acidoph-fructooligos 1 EACH tablet 1 ea PO DAILY RF: 0 quinapril 10 mg tablet 5 mg PO DAILY RF: 0 aspirin 325 MG tablet 325 mg PO DAILY@0800 RF: 0 Hold Instructions: Resume on 05/02/21. latanoprost 0.005 % Drops 1 drp EACH EYE DAILY RF: 0 omega 8-imn-rsa-fish oil [Fish Oil] 1,200 (144-216) mg Capsule 1 cap PO TID RF: 0 lamotrigine 100 mg tablet 50 mg PO BID Qty: 90 RF: 0 Primary Care Provider: Brcue Washington Referrals: Jovanni Granda MD [STAFF PHYSICIAN] - 3-5 Days Bruce Washington MD [Primary Care Provider] - Disposition Disposition: Home, Self Care
[2021-12-16 14:08] LABS: Bacteria 0 SEEN /hpf (None Seen); Mucous, Urine 0 SEEN /hpf (<or=2+); Red Blood Cells-Urine 0 SEEN /hpf (0-5); Squamous Epithelial Cells - UA 0 SEEN /hpf (0-5)
[2021-12-16 14:14] LABS: Color, Urine Yellow (Yellow); Urine Clarity Clear (Clear)
[2021-12-16 14:15] LABS: Glucose, Dipstick Normal (Normal); Ketone-Dipstick 15 mg/dl (Negative); Leukocyte Esterase-Dipstick 25 /ul (Negative); Nitrite-Dipstick NEGATIVE (Negative); Occult Blood-Urine NEGATIVE /ul (Negative); Protein-Dipstick 30 mg/dl (Negative); Urine Bilirubin Dipstick Negative (Negative); Urine Urobilinogen Normal (Normal); White Blood Cells 0-5 SEEN /hpf (0-5)
[2021-12-16] MEDS: Ciprofloxacin 500 MG Tablet PO (16:17)
== END 2021-12-16 16:39 | disposition home or self-care (01) ==
PROVIDERS: Emergency Provider Emergency Medicine; PCP Family Medicine; Visit Provider Emergency Medicine
DX: N45.3 Epididymo-orchitis (principal); N50.812 Left testicular pain; D47.2 Monoclonal gammopathy; E78.5 Hyperlipidemia, unspecified; K21.9 Gastro-esophageal reflux disease without esophagitis; Z79.899 Other long term (current) drug therapy; Z95.0 Presence of cardiac pacemaker; Z87.891 Personal history of nicotine dependence
CPT/HCPCS: 76870; 81001; 93976; 99283

== ENCOUNTER 2022-01-08 09:32 | Outpatient (CLI) | payer MEDICARE, OTHER, SELFPAY ==
[2022-01-14 12:08] LABS: KEPPRA (LEVETIRACETAM) 22.1 ug/mL (10.0-40.0)
[2022-01-14 13:19] LABS: Lamotrigine (Lamictal) Level 2.5 ug/mL (2.0-20.0)
== END 2022-01-08 23:59 | disposition home or self-care (01) ==
LOC: PAVLAB 09:33
PROVIDERS: PCP Family Medicine; Referring Provider Psychiatry & Neurology Neurology; Visit Provider Psychiatry & Neurology Neurology
DX: G40.909 Epilepsy, unspecified, not intractable, without status epilepticus (principal)
CPT/HCPCS: 36415; 80177; 82140; 82542

== ENCOUNTER → 2022-03-07 | Outpatient (CLI) | payer MEDICARE, OTHER, SELFPAY ==
--- NOTE | 2022-03-07 09:55 | CDU_ITS ---
Reason For Study: Transient visual loss, right eye Rt. Velocities/BP Lt. Velocities/BP Prox CCA 96.9/16 cm/sec. Prox CCA 70.2/14.4 cm/sec. Mid CCA 72.1/10.8 cm/sec. Mid CCA 57.9/12.6 cm/sec. Dist CCA 63/12.1 cm/sec. Dist CCA 44.7/8.8 cm/sec. Prox ICA 44.3/16.8 cm/sec. Prox ICA 40.9/12.6 cm/sec. Mid ICA 84.9/26.7 cm/sec. Mid ICA 54.1/19.2 cm/sec. Dist ICA 71.7/22 cm/sec. Dist ICA 73/24.8 cm/sec. Rt. ICA/CCA = 1.18. Lt. ICA/CCA = 1.26. Prox ECA 83.9/6.9 cm/sec. Prox ECA 128.4/7.9 cm/sec. Rt. Vert. 33.3/12.6 cm/sec. Lt. Vert. 38.1/9.7 cm/sec. Right Extracranial There is homogeneous, smooth atherosclerotic plaque noted in the right common carotid artery. There is homogeneous, smooth atherosclerotic plaque noted in the right internal carotid artery. There is intimal thickening but no significant atherosclerotic plaque noted in the right external carotid artery. The right external carotid artery is not well visualized. Antegrade flow is noted in the right vertebral artery. Left Extracranial There is homogeneous, smooth atherosclerotic plaque noted in the left common carotid artery. There is homogeneous, smooth atherosclerotic plaque noted in the left internal carotid artery. There is heterogeneous, irregular atherosclerotic plaque noted in the left external carotid artery. Antegrade flow is noted in the left vertebral artery. VL/Carotid Duplex Ultrasound Interpretation Summary Mild (<50%) stenosis right extracranial internal carotid. Mild (<50%) stenosis left extracranial internal carotid. Flow within the vertebral arteries is antegrade bilaterally. Ordering Physician: Stewart Corona Referring Physician: Bruce Washington Performed By: Leticia Irving RVT
== END | disposition home or self-care (01) ==
LOC: CVS 09:53
PROVIDERS: PCP Family Medicine; Referring Provider Ophthalmology; Visit Provider Ophthalmology
DX: H53.121 Transient visual loss, right eye (principal); I65.29 Occlusion and stenosis of unspecified carotid artery
CPT/HCPCS: 93880

== ENCOUNTER → 2022-07-11 | Outpatient (CLI) | payer MEDICARE, OTHER, SELFPAY ==
[2022-07-15 17:07] LABS: KEPPRA (LEVETIRACETAM) 30.1 ug/mL (10.0-40.0)
[2022-07-16 13:55] LABS: Lamotrigine (Lamictal) Level 3.1 ug/mL (2.0-20.0)
== END | disposition home or self-care (01) ==
LOC: MTLAB 09:59
PROVIDERS: PCP Family Medicine; Referring Provider Psychiatry & Neurology Neurology; Visit Provider Psychiatry & Neurology Neurology
DX: G40.909 Epilepsy, unspecified, not intractable, without status epilepticus (principal)
CPT/HCPCS: 36415; 80177; 82140; 82542

== ENCOUNTER → 2022-12-24 | Outpatient (CLI) | payer MEDICARE, OTHER, SELFPAY ==
[2022-12-26 16:09] LABS: KEPPRA (LEVETIRACETAM) 33.1 ug/mL (10.0-40.0)
[2022-12-26 19:59] LABS: Lamotrigine (Lamictal) Level 3.5 ug/mL (2.0-20.0)
== END | disposition home or self-care (01) ==
LOC: MTLAB 09:52
PROVIDERS: PCP Family Medicine; Referring Provider Psychiatry & Neurology Neurology; Visit Provider Psychiatry & Neurology Neurology
DX: G40.909 Epilepsy, unspecified, not intractable, without status epilepticus (principal)
CPT/HCPCS: 36415; 80177; 82140; 82542

== ENCOUNTER → 2023-01-23 | Outpatient (CLI) | payer MEDICARE, OTHER, SELFPAY ==
[2023-01-23 15:31] LABS: PSA,Total - Annual Screen 1.02 ng/mL (0.00-4.00)
== END | disposition home or self-care (01) ==
LOC: PAVLAB 14:59
PROVIDERS: PCP Family Medicine; Referring Provider Registered Nurse; Visit Provider Registered Nurse
DX: Z12.5 Encounter for screening for malignant neoplasm of prostate (principal)
CPT/HCPCS: 36415; 84153; G0103

== ENCOUNTER 2023-02-16 22:18 | Emergency (ER) | payer MEDICARE, OTHER, SELFPAY ==
[2023-02-16 22:18] VITALS: BP 192/85; PULSE 77; RESP 16; TEMP 36.3; O2SAT 98; BMI 23.4
--- NOTE | 2023-02-16 22:38 | EDS_ITS ---
HPI History of Present Illness Chief Complaint: Complaint Informant: patient Narrative Narrative: Presents increasing urine frequency hematuria for the past couple days. History of BPH with surgery 2 years ago followed by urology Dr. Granda. He states has a weakened bladder, he urinates through the day sitting down however at night he will Before bedtime and overnight after awakening. No fevers or back pain. He takes a full dose aspirin daily. He has a pacemaker for sick sinus syndrome. History of similar in the past. Patient has discomfort states there is a squeezing sensation down below. No nausea or vomiting. Prior similar symptoms: Yes PFSH PFSH Medical History Benign essential tremor Cardiac pacemaker in situ (~2006) Cardiology follow-up encounter Carotid artery disease Former smoker GERD (gastroesophageal reflux disease) High cholesterol History of atrial fibrillation History of pacemaker History of stress test History of vertigo Hx of echocardiogram Hyperlipidemia Low iron MGUS (monoclonal gammopathy of unknown significance) Ocular hypertension Paroxysmal atrial flutter Prostate disease Seizures Sick sinus syndrome Wears glasses Home Medications Lactobacillus acidophilus 500 million cell-fructooligosac 50 mg tablet 1 ea PO D AILY 06/27/16 [History Last Taken Unknown] cholecalciferol (vitamin D3) 25 mcg (1,000 unit) tablet 1,000 unit PO DAILY 06/27/16 [History Last Taken Unknown] loratadine 10 mg tablet 10 mg PO PRN PRN Allergies 06/27/16 [History Last Taken Unknown] ddlqhcgv-xpr-NC 200 mcg-vit K 15 mcg-lycope 150 njz-brazji-qypv tablet 1 ea PO DAILY 06/27/16 [History Last Taken Unknown] multivitamin with folic acid 400 mcg tablet 1 tab PO DAILY 06/27/16 [History Last Taken Unknown] omeprazole 20 mg capsule,delayed release 20 mg PO DAILY 06/27/16 [History Last Taken 04/18/21] pravastatin 40 mg tablet 40 mg PO DAILY 06/27/16 [History Last Taken Unknown] temazepam 30 mg capsule 30 mg PO QHS 06/27/16 [History Last Taken Unknown] aspirin 325 mg tablet 325 mg PO DAILY@0800 09/10/17 [History Last Taken 04/09/21] ascorbic acid (vitamin C) 1,000 mg tablet 1 g PO QDAY 12/12/17 [History Last Taken Unknown] quinapril 10 mg tablet 5 mg PO DAILY 02/14/20 [History Last Taken 04/18/21] timolol 0.5 % eye drops 1 drp RIGHT EYE BID 02/14/20 [History Last Taken Unknown] latanoprost 0.005 % eye drops 1 drp EACH EYE DAILY 04/11/21 [History Last Taken Unknown] omega 1-pfq-kju-fish oil 1,200 mg (144 mg-216 mg) capsule (Fish Oil) 1 cap PO TID 04/11/21 [History Last Taken 04/11/21] bethanechol chloride 5 mg tablet 5 mg PO TID 09/13/21 [History Last Taken Unknown] lamotrigine 100 mg tablet 50 mg PO BID #90 tabs 12/19/22 [Rx Last Taken Unknown] levetiracetam 750 mg tablet 750 mg PO BID #180 tabs 12/19/22 [Rx Last Taken Unknown] miscellaneous medical supply 1 ea miscellaneous .PRN osteoarthritis of right knee 12 months #1 ea 01/03/23 [Rx Last Taken Unknown] cefuroxime axetil 500 mg tablet 500 mg PO BID #13 tabs 02/16/23 [Rx Last Taken Unknown] phenazopyridine 200 mg tablet (Pyridium) 200 mg PO TID #10 tabs 02/16/23 [Rx Last Taken Unknown] Allergy/AdvReac Type Severity Reaction Status Date / Time carbamazepine Allergy disorientation Verified 02/16/23 22:20 and elevated anxiety,fluid retention codeine AdvReac Severe Vomiting Verified 02/16/23 22:20 guaifenesin AdvReac Vomiting Verified 02/16/23 22:20 [From [facility]] Family History Mother CVA (cerebral vascular accident) Diabetes Father Hypertension Surgical History History of arthroscopy of right knee History of cataract surgery History of detached retina repair Hx of colonoscopy Social History Smoking Status: Former smoker Tobacco: How many years used: 4 how long ago did patient quit smokin second hand exposure: No alcohol intake: never substance use type: does not use what type of physical activity do you participate in: none ling/pentecostal: Shinto seatbelt use: always ROS ROS ED Constitutional Constitutional ED: Denies chills, fever(s) or sweats Eyes Eyes: Denies change in vision ENT ENT ED: Denies dysphagia or sore throat Cardiovascular Cardiovascular: Denies chest pain, leg edema, palpitations or racing heartbeat Respiratory/Chest Respiratory/Chest: Denies cough, dyspnea or dyspnea on exertion Gastrointestinal Gastrointestinal: Denies abdominal pain, diarrhea, nausea or vomiting Genitourinary Genitourinary ED: Reports dysuria, hematuria and urinary frequency Musculoskeletal Musculoskeletal: Denies back pain, extremity pain or neck pain Integumentary Denies rash or wounds Neurologic Neurologic: Denies headache(s), paresthesias or weakness EXAM Physical Exam Const Vital Signs: 02/16/23 22:18 02/16/23 23:46 Temperature 97.4 F L Temperature Source Temporal Pulse Rate 77 80 Respiratory Rate 16 18 Blood Pressure 192/85 H 160/78 H Blood Pressure Mean 120 Pulse Ox 98 96 Oxygen Delivery Method Room Air Positive well nourished and well developed General Appearance ED: well developed and NAD HEENT Reports moist mucous membranes normocephalic and atraumatic Eyes PERRL, EOMs intact bilaterally and conjunctivae normal General Eye ED: Yes normal appearance of both eyes Neck no lymphadenopathy and supple General: Negative for tenderness Chest Wall Chest: Negative for tenderness Resp normal respiratory effort and normal air movement Effort and Inspection: symmetric chest movement; Negative for respiratory distress Cardio regular rate, regular rhythm and no murmurs Peripheral Pulses: pulses 2+ throughout GI normal to inspection, nondistended, normoactive bowel sounds and non-tender GI Narrative: No distention suprapubic region. Palpation: Negative for guarding or rebound tenderness present Back/Spine no CVA tenderness and no thoracic nor lumbar tenderness Extremity normal to inspection General Extremety ED: Negative for edema or tenderness General Extremity: Negative for edema Neuro oriented x3 and no sensory deficits noted Sensorium / Orientation: awake and alert Skin no rashes or lesions noted and no wounds MDM MDM MDM Narrative Medical decision making narrative: Interventions / MDM: Differential diagnosis: Complicated UTI, Diagnosis considered but do not suspect: Kidney stones, however presentation clinically with no discomfort. My EKG interpretation: N/A Imaging independently reviewed and interpreted by myself: N/A External documents reviewed: N/A Test considered but not ordered:N/A ED course: Patient able to provide a urine sent down positive for infection with hematuria. Culture sent. He started on cefuroxime for complicated UTI. Pyridium also started for symptoms. Outpatient follow-up and return preca utions. All questions were answered. Re-evaluation: stable Disposition discussed with patient/family/significant other: Patient Case discussed with consulting clinician: N/A Lab Data Attestation: I reviewed the patient's lab results. Labs: Laboratory Results - last 24 hr 02/16/23 22:50 Urine Color Nick[place] Urine Clarity Cloudy Urine pH 7.0 Ur Specific [place] 1.010 Urine Protein 500 H Urine Glucose (UA) Normal Urine Ketones Negative Urine Occult Blood 250 H Urine Nitrite Negative Urine Bilirubin Negative Urine Urobilinogen Normal Ur Leukocyte Esterase 500 H Urine RBC > 100 SEEN Urine WBC 25-50 SEEN Ur Squamous Epith Cells 0 SEEN Urine Bacteria RARE Urine Mucus 0 SEEN Discharge Plan Triage Chief Complaint: Complaint ED Provider: Dileep White Dx/Rx/DC Orders Clinical Impression: Acute UTI, Hematuria Instructions: ED Hematuria, ED Urinary Tract Infections in Men Prescriptions: New phenazopyridine [Pyridium] 200 mg tablet 200 mg PO TID Qty: 10 0RF cefuroxime axetil 500 mg tablet 500 mg PO BID Qty: 13 0RF No Action ascorbic acid (vitamin C) 1,000 mg tablet 1 g PO QDAY timolol 0.5 % drops 1 drp RIGHT EYE BID bethanechol chloride 5 mg tablet 5 mg PO TID levetiracetam 750 mg tablet 750 mg PO BID Qty: 180 1RF lamotrigine 100 mg tablet 50 mg PO BID Qty: 90 1RF pravastatin 40 MG tablet 40 mg PO DAILY temazepam 30 MG capsule 30 mg PO QHS omeprazole 20 MG capsule 20 mg PO DAILY loratadine 10 MG tablet 10 mg PO PRN PRN (Reason: Allergies) cholecalciferol (vitamin D3) 1,000 UNIT tablet 1,000 unit PO DAILY multivitamin with folic acid 1 TABLET tablet 1 tab PO DAILY oy-ox-UM-vit H-rwmat-cfkt-zeax 1 EACH tablet 1 ea PO DAILY Lactobac acidoph-fructooligos 1 EACH tablet 1 ea PO DAILY quinapril 10 mg tablet 5 mg PO DAILY aspirin 325 MG tablet 325 mg PO DAILY@0800 Hold Instructions: Resume on 05/02/21. latanoprost 0.005 % Drops 1 drp EACH EYE DAILY omega 8-cgf-lzl-fish oil [Fish Oil] 1,200 (144-216) mg Capsule 1 cap PO TID miscellaneous medical supply Misc 1 ea miscellaneous .PRN 360 Days Qty: 1 2RF Rx Instructions: Handicap Placard to use as needed valid 3 years from renewal date. Primary Care Provider: Socrates Kumar Referrals: Jovanni Granda MD [Med Staff - Active Staff] - 5-7 Days Socrates Kumar DO [Primary Care Provider] - Disposition Disposition: Home, Self Care Discharge Date/Time: 02/16/23 23:47
[2023-02-16 22:58] LABS: Mucous, Urine 0 SEEN /hpf (<or=2+); Squamous Epithelial Cells - UA 0 SEEN /hpf (0-5)
[2023-02-16 22:59] LABS: Color, Urine Amber (Yellow); Glucose, Dipstick Normal (Normal); Ketone-Dipstick Negative (Negative); Leukocyte Esterase-Dipstick 500 /ul (Negative); Nitrite-Dipstick Negative (Negative); Occult Blood-Urine 250 /ul (Negative); Protein-Dipstick 500 mg/dl (Negative); Urine Bilirubin Dipstick Negative (Negative); Urine Clarity Cloudy (Clear); Urine Urobilinogen Normal (Normal)
[2023-02-16 23:11] LABS: Bacteria RARE /hpf (None Seen); Red Blood Cells-Urine > 100 SEEN /hpf (0-5); White Blood Cells 25-50 SEEN /hpf (0-5)
[2023-02-16] MEDS: Phenazopyridine 95 MG Tablet 190 MG PO (23:31)
[2023-02-16 23:46] VITALS: BP 160/78; PULSE 80; RESP 18; O2SAT 96
== END 2023-02-16 23:47 | disposition home or self-care (01) ==
PROVIDERS: Emergency Provider Emergency Medicine; PCP Family Medicine; Visit Provider Emergency Medicine
DX: N39.0 Urinary tract infection, site not specified (principal); E78.00 Pure hypercholesterolemia, unspecified; R31.9 Hematuria, unspecified; R35.0 Frequency of micturition; Z87.891 Personal history of nicotine dependence
CPT/HCPCS: 81001; 87077; 87086; 87088; 87186; 99283

== ENCOUNTER → 2023-06-17 | Outpatient (CLI) | payer MEDICARE, OTHER, SELFPAY ==
[2023-06-17 11:16] LABS: Anion Gap 9 (5-15); BUN 22 mg/dL (7-18); BUN/Creat Ratio 17.1 RATIO (10-20); Calcium,Total 8.8 mg/dL (8.5-10.1); Chloride 95 mmol/L (98-107); Creatinine, Serum 1.29 mg/dL (0.70-1.30); EST Glomerular Filtration Rate 57 mL/min (>60); Est Glom Filt Rate - Afr Amer 69 mL/min (>60); Glucose 118 mg/dL (74-106); Potassium 4.4 mmol/L (3.5-5.1); Sodium Level 128 mmol/L (136-145)
[2023-06-19 14:09] LABS: KEPPRA (LEVETIRACETAM) 27.6 ug/mL (10.0-40.0); Lamotrigine (Lamictal) Level 4.1 ug/mL (2.0-20.0)
== END | disposition home or self-care (01) ==
LOC: MTLAB 08:11
PROVIDERS: PCP Family Medicine; Referring Provider Psychiatry & Neurology Neurology; Visit Provider Psychiatry & Neurology Neurology
DX: G40.909 Epilepsy, unspecified, not intractable, without status epilepticus (principal)
CPT/HCPCS: 36415; 80048; 80177; 82140; 82542

== ENCOUNTER → 2023-12-05 | Outpatient (CLI) | payer MEDICARE, OTHER, SELFPAY ==
[2023-12-05 12:31] LABS: Sodium Level 129 mmol/L (136-145)
== END | disposition home or self-care (01) ==
LOC: MTLAB 10:24
PROVIDERS: PCP Family Medicine; Referring Provider Psychiatry & Neurology Neurology; Visit Provider Psychiatry & Neurology Neurology
DX: E87.1 Hypo-osmolality and hyponatremia (principal)
CPT/HCPCS: 36415; 84295

== ENCOUNTER → 2024-07-20 | Outpatient (CLI) | payer MEDICARE, OTHER, SELFPAY ==
[2024-07-20 12:29] LABS: Hematocrit 37.1 % (40-54); Hemoglobin 12.5 g/dL (13.0-16.5); Mean Corp Hgb Conc 33.7 g/dL (32-36); Mean Corpuscular Hgb 30.8 pg (27.0-32.0); Mean Corpuscular Volume 91.4 fL (80-94); Mean Platelet Vol. 9.6 fl (6.2-12.0); Platelet Count 267 K/mm3 (150-450); RBC Distribution Width CV 12.1 % (11.6-14.6); RBC Distribution Width SD 40.5 fl (35.1-43.9); Red Blood Count 4.06 M/mm3 (4.6-6.2); White Blood Count 9.1 K/mm3 (4.4-11.0)
[2024-07-20 13:15] LABS: ALB/GLOB Ratio 0.8 RATIO (0.9-2.4); AST(SGOT) 23 U/L (15-37); Alanine Aminotransfer ALT/SGPT 16 U/L (16-61); Albumin, Serum 3.2 g/dL (3.2-5.0); Alkaline Phosphatase 129 U/L (45-117); Anion Gap 9 (5-15); BUN 16 mg/dL (7-18); BUN/Creat Ratio 13.7 RATIO (10-20); Calcium,Total 9.2 mg/dL (8.5-10.1); Chloride 94 mmol/L (98-107); Creatinine, Serum 1.17 mg/dL (0.70-1.30); EST Glomerular Filtration Rate 64 mL/min (>60); Est Glom Filt Rate - Afr Amer 77 mL/min (>60); Globulin 4.1 g/dL (2.2-4.2); Glucose 120 mg/dL (74-106); Protein, Total 7.3 g/dL (6.4-8.2); Sodium Level 125 mmol/L (136-145)
[2024-07-23 18:08] LABS: KEPPRA (LEVETIRACETAM) 46.4 ug/mL (10.0-40.0); Lamotrigine (Lamictal) Level 4.4 ug/mL (2.0-20.0)
== END | disposition home or self-care (01) ==
LOC: MTLAB 10:52
PROVIDERS: PCP Family Medicine; Referring Provider Psychiatry & Neurology Neurology; Visit Provider Psychiatry & Neurology Neurology
DX: G40.909 Epilepsy, unspecified, not intractable, without status epilepticus (principal)
CPT/HCPCS: 36415; 80053; 80177; 82140; 82542; 85027

== ENCOUNTER 2024-09-02 11:30 | Outpatient (RCR) | payer MEDICARE, OTHER, SELFPAY ==
--- NOTE | 2024-08-10 10:56 | HP.PTEVAL ---
Patient's Visit Information Visit Information Visit Information: FELI CASTILLO is a 79 year old M referred to Physical Therapy by LEONELA Woods with a diagnosis of DDD. Date of Evaluation: 08/10/24 Physical Therapist: CECILIA JeffreyT, OCS, CSCS Visit Plan Frequency: 1x/Week Duration: 2-4 Weeks Plan: weekly x2-4(pt desires minimal) to ensure life back to normal and teach core and LE strength to tolerance if desired. Will f/u next week. IE: trunk rotation supine, pelvic tilt, SKC all 10x 2x/day, also benefits of walker usage and sleeping position with knees bent. Subjective Subjective: R knee is degenerated and painful and his main limitikng factor. Gets cortisone adn nothing else can be done. Here to talk about something else. LBP. Had x rays which showed scoliosis in neck which he had since teenager as well as lower in spine. Also has DDD in lumbar. Sleeps in lazy boy with power control and may have slept wrong with legs too high. Woke up one morning with intense 10/10 pain on r sideto L side of LB. That was 2 weeks ago and took all morning to work out. bad for a couple days. Wiping down tub after shower requires care to lean forward as his back gets really tight. Bending forward to get trash bags bothers him in the LB. Sitting feels better. may help. Back was relatively fine prior to two weeks ago. bad R knee forces stooping sometimes which made back ache a little bit. Sleep is not interrupted. Has sleep apnea and uses meltonin and timazepam. Uses catheter overnight. Retired. Normal activities: can do them all , avoids vaccuuming but has for a while. 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 Hurts to stretch and reach up. bending can also make it worse. Live alone one story with walkout lower level, no problem on steps with two handrails. Spends day reading and watching tv and playing on tablet. No regular exercises. No leg symptoms form back. No pain yesterday and nearly back to normal Pain LBP: Pain Intensity (Out of 10): 0 Pain Intensity Range: 0 and 3 Comment: two days ago with bathtub Objective Objective: Walks in mod I with cane in R UE, hunched over but not painful. Trasnfers slowly with UE I bed and chair. Good balance today with cane. LB AROM ext max limited but not painful, flexion min limited, no pain, SB mod limited no pain, has some stretching with extension. LE AROM hip ext 0, abd 17, flexion 100, no pain - SLR, - SLump. knee and ankle aROM WFL, R side painful slightly at knee reflexes 1/3 patella adn achilles sensation LE WNL to gross light touch. strength hips abd and ext 3+, flexion 3+, knee flex/ext 4-, R ext pain. ankles 4 without pain. Good ankle coordination today. Balance/Special Test Scores Oswestry Low Back Score: 10 Goals Goal 1:: Life back to normal for 5 straight days Goal Time Frame: 2-4 Weeks Goal 2:: Pt pain in LKB 100% better and 1/10 at worst. Goal Time Frame: 2-4 Weeks Rehabilitation Potential Physical Therapy Diagnosis: LNP limiting comfortable function Rehabilitation Potential: Fair Anticipated Interventions Patient/Client Instruction: Educate patient on: Condition and Plan of Care For the Purpose of:: To decrease pain and To improve muscle performance and motor function Therapeutic Exercise to Include: Strength training, Flexibilty training, Passive ROM and Active ROM For the Purpose of:: To decrease pain, To increase ROM, To improve nutrient delivery to tissue and To increase tolerance to activity/condition/position Text: Thank you for the opportunity to evaluate your patient. For Medicare and Medicare HMO plans, please review the plan of care and approve it. It will need to be FAXED BACK to us at [phone] for Medicare purposes. For Medicare only, by signing this I certify the plan of care. Please let me know if there are questions or concerns regarding this plan of care. Physician Signature: Date:
--- NOTE | 2024-11-29 14:42 | HP.PT.NRP ---
Patient Information Patient Information: FELI CASTILLO was seen in my office for initial evaluation on 08/10/24. The following Plan of Care was established for this patient: POC Established Initial Frequency: 1x/Week Initial Duration: 2-4 Weeks Anticipated Interventions Patient/Client Instruction: Educate patient on: Condition and Plan of Care For the Purpose of:: To decrease pain and To improve muscle performance and motor function Therapeutic Exercise to Include: Strength training, Flexibilty training, Passive ROM and Active ROM For the Purpose of:: To decrease pain, To increase ROM, To improve nutrient delivery to tissue and To increase tolerance to activity/condition/position Last Seen Last Seen: This patient was last seen in our office 09/02/24. Pertinent comments regarding their Physical therapy will appear below: Pt seen 3 visits of POC but did not schedule or attend any further. IT has been over 2 months at this point and I will discontinue from my care. At this point I will be discontinuing this patient from physical therapy. I would be happy to see this patient again in the future if found appropriate by the physician. Thank you! Casper Dwyer, DPT, OCS, CSCS Balance/Gait/Functional tests Balance/Special Test Scores Oswestry Low Back Score: 10
== END 2024-09-02 19:00 | disposition home or self-care (01) ==
LOC: PT 11:30
PROVIDERS: PCP Family Medicine; Referring Provider Student in an Organized Health Care Education/Training Program; Visit Provider Student in an Organized Health Care Education/Training Program
DX: M51.360 Other intervertebral disc degeneration, lumbar region with discogenic back pain only (principal)
CPT/HCPCS: 97110; 97161; 97530

== ENCOUNTER → 2025-03-17 | Outpatient (CLI) | payer MEDICARE, OTHER, SELFPAY | END | disposition home or self-care (01) | PROVIDERS: PCP Family Medicine; Referring Provider Podiatrist; Visit Provider Podiatrist | DX: L97.222 Non-pressure chronic ulcer of left calf with fat layer exposed (principal) | CPT/HCPCS: 87070; 87075; 87205 ==

== ENCOUNTER → 2025-08-11 | Outpatient (CLI) | payer MEDICARE, OTHER, SELFPAY ==
[2025-08-11 13:40] LABS: Mucous, Urine 0 SEEN /hpf (<or=2+)
--- OUTSIDE RECORDS SUMMARY | 2025-08-11 13:57 | XMS RPT_ITS | CCD ---
Author Organization [facility] Care Team Providers Care Nurse Extern Name Role Phone Dr. Bruce Washington Primary Care Provider Dr. Bruce Washington Referring Provider Dr. Curtis Ross Attending Provider Dr. Pool White Attending Provider [phone] Bruce Washington Primary Care Provider Dr. Bruce Washington Referring Provider Dr. Curtis Ross Attending Provider Dr. Bruce Washington Primary Care Provider Dr. Bruce Washington Referring Provider Dr. Ruperto Baumann Attending Provider Dr. Curtis Francis Attending Provider Dr. Azeem Dumont Attending Provider Dr. Pool White Attending Provider [phone] Bruce Washington Primary Care Provider Dr. Bruce Washington Referring Provider Dr. Curtis Francis Attending Provider Dr. Ruperto Baumann Attending Provider Dr. Pool White Attending Provider Dr. Curtis Ross Attending Provider Dr. Socrates Kumar Primary Care Provider [phone] Dr. Socrates Kumar Referring Provider Dr. Bruce Washington Referring Provider Unavailable Dr. Pool White Attending Provider Mary Paredes Attending Provider Unavailable Dr. Socrates Kumar Primary Care Provider Dr. Socrates Kumar Referring Provider Mary Paredes Attending Provider Unavailable Dr. Azeem Dumont Attending Provider Dr. Curtis Francis [facility] Pool White Attending Provider [facility] , Dr. Crowell Primary Care Provider José SANTOS, Dr. Crowell Referring Provider Kostas MOTLEY-CEly Attending Provider [facility] , Dr. Acevedo Attending Provider Dr. Azeem Dumont MD Attending Provider Alla Carpenter Attending Provider Abi BROOKSM, Dr. Centeno Attending Provider Abi BRAR, Dr. Centeno Referring Provider Dr. Pool White MD Attending Provider José SANTOS, Dr. Crowell Primary Care Provider José SANTOS, Dr. Crowell Referring Provider José SANTOS, Dr. Crowell Primary Care Provider José SANTOS, Dr. Crowell Referring Provider Dr. Azeem Dumont MD Attending Provider [facility] , Dr. Acevedo Attending Provider José SANTOS, Dr. Crowell Primary Care Provider José SANTOS, Dr. Crowell Referring Provider Dr. Azeem Dumont MD Attending Provider Socrates Kumar Referring Unavailable Alla Burks Attending Unavailable José, Socrates Primary Care Unavailable José, Socrates Primary Care Unavailable Julia, [place] Attending Unavailable Kimmie, Alla Attending Unavailable Joés, Socrates Referring Unavailable José, Socrates Primary Care Unavailable José, Socrates Primary Care Unavailable José, Socrates Referring Unavailable PraCurtis ortega Attending Unavailable José, Socrates Primary Care Unavailable Pool White Attending Unavailable Pool White Referring Unavailable Jacobo Alex Referring Unavailable [place] Heights[place] crooks Attending Unavailable José, Socrates Primary Care Unavailable Kimmie, Alla Referring Unavailable Kimmie, Alla Attending Unavailable José, Socrates Primary Care Unavailable Cindy Pool Attending Unavailable José, Socrates Referring Unavailable José, Socrates Primary Care Unavailable José, Socrates Primary Care Unavailable Julia, Azeem Attending Unavailable José, Socrates Primary Care Unavailable José, Socrates Referring Unavailable Curtis Francis Attending Unavailable Julia, Azeem Attending Unavailable José, Socrates Primary Care Unavailable José, Socrates Referring Unavailable José, Socrates Primary Care Unavailable Curtis Francis Attending Unavailable José, Socrates Referring Unavailable José, Socrates Primary Care Unavailable BorCurtis olmos Attending Unavailable José, Socrates Primary Care Unavailable Julia, [place] Attending Unavailable José, Socrates Referring Unavailable José, Socrates Primary Care Unavailable Kostas WATCHMAKER APPRENTICE, [place] Attending Unavailable José, Socrates Primary Care Unavailable José, Socrates Referring Unavailable BorrusoCurtis Attending Unavailable José, Socrates Primary Care Unavailable Julia, Azeem Attending Unavailable José, Socrates Primary Care Unavailable Julia, Azeem Attending Unavailable José, Socrates Primary Care Unavailable José, Socrates Referring Unavailable Jenniferdoanel Pool Attending Unavailable José, Socrates Primary Care Unavailable Julia, [place] Attending Unavailable José, Socrates Referring Unavailable José, Socrates Primary Care Unavailable Julia, Azeem Attending Unavailable José, Socrates Referring Unavailable José, Socrates Primary Care Unavailable Curtis Francis Attending Unavailable José, Socrates Primary Care Unavailable Julia, Azeem Attending Unavailable José, Socrates Primary Care Unavailable José, Socrates Referring Unavailable Julia, [place] Attending Unavailable Allergies Allergy Classification Reported Allergen(s) Allergy Type Date of Onset Reaction(s) Facility (11 sources) carBAMazepine Drug Allergy 2 disorientation and elevated anxiety,fluid retention [facility] (11 sources) Codeine Drug Allergy 2 Vomiting [facility] (11 sources) guaiFENesin Drug Allergy 2 Vomiting [facility] (1 source) carBAMazepine Drug Allergy 5 [facility] Repository (1 source) Codeine Drug Allergy 5 [facility] (1 source) guaiFENesin Drug Allergy 5 [facility] Medications Current Medications Medication Drug Class(es) Dates Sig (Normalized) Sig (Original) ascorbic acid 1000 mg oral tablet (11 sources) Vitamin C Start: 12-12-2017 take 1 g by mouth once daily Ascorbic Acid (Vitamin C) 1,000 mg tablet Active 1 g PO daily December 12, 2017 1:00am Start: 12-12-2017 take 1 g by mouth once daily A scorbic Acid (Vitamin C) Active 1 GM PO daily December 12, 2017 12:00am aspirin 325 mg delayed release oral tablet (20 sources) Platelet Aggregation Inhibitor, Nonsteroidal Anti-inflammatory Drug Start: 12-22-2023 take 1 tablet by mouth once daily Aspirin 325 mg tablet,delayed release (DR/EC) Active 325 mg PO DAILY December 22, 2023 12:00am Start: 08-08-2023 End: 12-22-2023 take 1 tablet by mouth once daily Aspirin (Adult Aspirin Regimen) 81 mg tablet,delayed release (DR/EC) Discontinued 81 mg PO daily 90 3 August 08, 2023 12:00am December 22, 2023 9:31am Start: 09-10-2017 End: 08-08-2023 take 1 tablet by mouth once daily Aspirin 325 MG tablet Discontinued 325 mg PO DAILY@0800 September 10, 2017 1:00am August 08, 2023 12:15pm bethanechol chloride 5 mg oral tablet (11 sources) Cholinergic Muscarinic Agonist Start: 09-13-2021 take 1 tablet by mouth three times daily Bethanechol Chloride 5 mg tablet Active 5 mg PO THREE TIMES A DAY September 13, 2021 1:00am cholecalciferol 0.025 mg oral tablet (11 sources) Vitamin D Start: 06-27-2016 take 1 tablet by mouth once daily Cholecalciferol (Vitamin D3) 1,000 UNIT tablet Active 1000 U PO DAILY June 27, 2016 12:00am Lactobac Acidoph-Fructooligos (6 sources) Start: 06-27-2016 Lactobac Acidoph-Fructooligos Active 1 EACH PO DAILY June 27, 2016 1:04pm Start: 06-27-2016 Lactobac Acido ph-Fructooligos Active 1 EACH PO DAILY June 26, 2016 11:00pm Start: 06-27-2016 Lactobac Acido ph-Fructooligos Active 1 EACH PO DAILY June 27, 2016 12:00am Lactobac Acidoph-Fructooligos 1 EACH tablet (5 sources) Start: 06-27-2016 Lactobac Acidoph-Fructooligos 1 EACH tablet Active 1 NMA PO DAILY June 27, 2016 12:00am latanoprost 0.05 mg/ml ophthalmic solution (20 sources) Prostaglandin Analog Start: 04-11-2021 Latanoprost 0.005 % Drops Active 1 NMA EACH EYE DAILY April 11, 2021 12:00am Start: 01-28-2018 End: 03-08-2021 Latanoprost 0.005 % drops Di scontinued 1 NMA OPHTHALMIC EVERY EVENING January 28, 2018 12:00am March 08, 2021 10:49am Start: 01-28-2018 End: 03-08-2021 Latanoprost Discontinued 1 D RP OPHTHALMIC EVERY EVENING January 27, 2018 11:00pm March 08, 2021 9:49am lisinopril 5 mg oral tablet (7 sources) Angiotensin Converting Enzyme Inhibitor Start: 06-04-2023 take 1 tablet by mouth once daily Lisinopril 5 mg tablet Active 5 mg PO DAILY June 04, 2023 12:00am loratadine 10 mg oral tablet (11 sources) Start: 06-27-2016 Loratadine 10 MG tablet Active 10 mg PO NEEDED as needed for Allergies June 27, 2016 12:00am Miscellaneous Medical Supply (6 sources) Start: 01-03-2023 Miscellaneous Medical Supply Active 1 EACH MC .PRN 1 360 January 03, 2023 1:43pm Handicap Placard to use as needed valid 3 years from renewal date. Start: 01-03-2023 Miscellaneous Medical Supply Active 1 EACH MC .PRN 1 360 January 03, 2023 2:43pm Handicap Placard to use as needed valid 3 years from renewal date. Start: 03-25-2022 End: 01-03-2023 Miscellaneous Medical Supply Discontinued 1 EACH MC .PRN 1 360 March 24, 2022 11:00pm January 03, 2023 1:47pm Handicap Placard to use as needed valid 12 months from today. Start: 03-25-2022 End: 01-03-2023 Miscellaneous Medical Supply Discontinued 1 EACH MC .PRN 1 360 March 25, 2022 12:00am January 03, 2023 2:47pm Handicap Placard to use as needed valid 12 months from today. Start: 03-25-2022 Miscellaneous Medical Supply Active 1 EACH MC .PRN 1 360 March 25, 2022 12:00am Handicap Placard to use as needed valid 12 months from today. Miscellaneous Medical Supply misc (10 sources) Start: 01-03-2023 Miscellaneous Medical Supply misc Active 1 NMA MC .PRN 1 360 2 January 03, 2023 2:43pm Primary osteoarthritis of right knee Unilateral primary osteoarthritis, right knee osteoarthritis of right knee Handicap Placard to use as needed valid 3 years from renewal date. Start: 01-03-2023 Miscellaneous Medical Supply misc Active 1 NMA MC .PRN 1 360 January 03, 2023 2:43pm Handicap Placard to use as needed valid 3 years from renewal date. Start: 03-25-2022 End: 01-03-2023 Miscellaneous Medical Supply misc Discontinued 1 NMA MC .PRN 1 360 0 March 25, 2022 12:00am March 19, 2023 12:00am January 03, 2023 2:47pm Primary osteoarthritis of right knee Unilateral primary osteoarthritis, right knee osteoarthritis of right knee Handicap Placard to use as needed valid 12 months from today. Start: 03-25-2022 End: 01-03-2023 Miscellaneous Medical Supply misc Discontinued 1 NMA MC .PRN 1 360 March 25, 2022 12:00am March 19, 2023 12:00am January 03, 2023 2:47pm Handicap Placard to use as needed valid 12 months from today. Multivitamin With Folic Acid (6 sources) Start: 06-27-2016 take 1 tablet by mouth once daily Multivitamin With Folic Acid Active 1 TABLET PO DAILY June 27, 2016 1:04pm Start: 06-27-2016 take 1 tablet by cedric once daily Multivitamin With Folic Acid Active 1 TABLET PO DAILY June 26, 2016 11:00pm Start: 06-27-2016 take 1 tablet by cedric once daily Multivitamin With Folic Acid Active 1 TABLET PO DAILY June 27, 2016 12:00am Multivitamin With Folic Acid 1 TABLET tablet (5 sources) Start: 06-27-2016 take 1 tablet by mouth once daily Multivitamin With Folic Acid 1 TABLET tablet Active 1 {tbl} PO DAILY June 27, 2016 12:00am Xp-Md-Wm-Vit J-Qgzqi-Dsph-Zeax (6 sources) Start: 06-27-2016 Ck-Uh-Ol-Vit Z-Aggvc-Ymyj-Zeax Active 1 EACH PO DAILY June 27, 2016 1:04pm Start: 06-27-2016 Rf-Lh-Hw-Vit K -Zmdim-Pczu-Wejf Active 1 EACH PO DAILY June 26, 2016 11:00pm Start: 06-27-2016 Fy-Hg-Aa-Vit K -Tgpds-Xyfj-Xphb Active 1 EACH PO DAILY June 27, 2016 12:00am Jq-Bf-Qc-Vit K-Adkfb-Uzrz-Zeax 1 EACH tablet (5 sources) Start: 06-27-2016 take 1 tablet by mouth once daily No-Bq-Nu-Vit F-Whakg-Ohce-Zeax 1 EACH tablet Active 1 NMA PO DAILY June 27, 2016 12:00am Coleman 8-Skj-Vnv-Fish Oil (Fish Oil) 1,200 (144-216) mg Capsule (11 sources) Start: 04-11-2021 take 1 capsule by mouth three times daily Coleman 9-Xgm-Ibq-Fish Oil (Fish Oil) 1,200 (144-216) mg Capsule Active 1 CAP PO THREE TIMES A DAY April 11, 2021 9:52am Start: 04-11-2021 Coleman 3-Dha-Ep a-Fish Oil (Fish Oil) 1,200 (144-216) mg Capsule Active 1 NMA PO THREE TIMES A DAY April 11, 2021 12:00am Start: 04-11-2021 take 1 capsule by mo [facility] three times daily Coleman 0-Ntg-Fry-Fish Oil (Fish Oil) 1,200 (144-216) mg Capsule Active 1 CAP PO THREE TIMES A DAY April 10, 2021 11:00pm Start: 04-11-2021 take 1 capsule by mo [facility] three times daily Coleman 0-Gcu-Pup-Fish Oil (Fish Oil) 1,200 (144-216) mg Capsule Active 1 CAP PO THREE TIMES A DAY April 11, 2021 12:00am omeprazole 20 mg delayed release oral capsule (11 sources) Proton Pump Inhibitor Start: 06-27-2016 take 1 capsule by mouth once daily Omeprazole 20 MG capsule Active 20 mg PO DAILY June 27, 2016 12:00am pravastatin sodium 40 mg oral tablet (11 sources) HMG-CoA Reductase Inhibitor Start: 06-27-2016 take 1 tablet by mouth once daily Pravastatin 40 MG tablet Active 40 mg PO DAILY June 27, 2016 12:00am temazepam 30 mg oral capsule (11 sources) Benzodiazepine Start: 06-27-2016 take 1 capsule by mouth at bedtime Temazepam 30 MG capsule Active 30 mg PO AT BEDTIME June 27, 2016 12:00am Timolol (20 sources) beta-Adrenergic Rizwana Start: 02-14-2020 Timolol Active 1 DRP RIGHT EYE TWICE A DAY February 14, 2020 9:39am Start: 02-14-2020 take 0.5 drop(s) int o the eye(s) twice daily Timolol 0.5 % drops Active 1 NMA RIGHT EYE TWICE A DAY February 14, 2020 12:00am Start: 02-14-2020 Timolol Active 1 DRP RIGHT EYE TWICE A DAY February 13, 2020 11:00pm Start: 02-14-2020 Timolol Active 1 DRP RIGHT EYE TWICE A DAY February 14, 2020 12:00am Start: 06-27-2016 End: 01-28-2018 Timolol Maleate 1 DROP drops Discontinued 1 NMA EACH EYE DAILY June 27, 2016 12:00am January 28, 2018 1:35pm Start: 06-27-2016 End: 01-28-2018 Timolol Maleate Discontinued 1 DRP EACH EYE DAILY June 26, 2016 11:00pm January 28, 2018 12:35pm Completed/Discontinued Medications Medication Drug Class(es) Dates Sig (Normalized) Sig (Original) cefuroxime 500 mg oral tablet (7 sources) Cephalosporin Antibacterial Start: 02-16-2023 End: 03-03-2023 take 1 tablet by mouth twice daily Cefuroxime Axetil 500 mg tablet Discontinued 500 mg PO TWICE A DAY 13 February 16, 2023 12:00am March 03, 2023 1:39pm ciprofloxacin 500 mg oral tablet (20 sources) Quinolone Antimicrobial Start: 12-16-2021 End: 03-25-2022 take 1 tablet by mouth twice daily Ciprofloxacin Hcl 500 mg tablet Discontinued 500 mg PO TWICE A DAY 28 December 16, 2021 1:00am March 25, 2022 11:24am Start: 04-18-2021 End: 06-14-2021 take 1 tablet by mouth twice daily Ciprofloxacin Hcl (Cipro) 500 mg tablet Discontinued 500 mg PO TWICE A DAY 14 April 18, 2021 12:00am June 14, 2021 11:18am finasteride 5 mg oral tablet (11 sources) 5-alpha Reductase Inhibitor Start: 03-08-2021 End: 04-18-2021 take 1 tablet by mouth once daily Finasteride 5 mg tablet Discontinued 5 mg PO DAILY March 08, 2021 12:00am April 18, 2021 1:09pm lamoTRIgine 100 mg oral tablet (20 sources) Mood Stabilizer, Anti-epileptic Agent Start: 06-27-2016 End: 03-22-2025 Lamotrigine 100 mg tablet Discontinued 50 mg PO TWICE A DAY 90 March 01, 2025 2:28pm March 22, 2025 10:20am Start: 06-27-2016 End: 11-19-2023 take 50 mg by mouth twice daily Lamotrigine Discontinued 50 MG PO TWICE A DAY December 13, 2021 2:16pm January 03, 2022 1:28pm levETIRAcetam 750 mg oral tablet (20 sources) Start: 06-27-2016 End: 03-22-2025 take 1 tablet by mouth twice daily Levetiracetam 750 mg tablet Discontinued 750 mg PO TWICE A DAY 180 July 20, 2024 10:11am March 22, 2025 10:20am phenazopyridine hydrochloride 200 mg oral tablet (7 sources) Start: 02-16-2023 End: 03-03-2023 take 1 tablet by mouth three times daily Phenazopyridine (Pyridium) 200 mg tablet Discontinued 200 mg PO THREE TIMES A DAY 10 February 16, 2023 12:00am March 03, 2023 1:40pm quinapril 10 mg oral tablet (20 sources) Angiotensin Converting Enzyme Inhibitor Start: 02-14-2020 End: 06-04-2023 take 5 mg by mouth once daily Quinapril 10 mg tablet Discontinued 5 mg PO DAILY February 14, 2020 9:38am June 04, 2023 11:00am Start: 02-14-2020 End: 06-04-2023 take 5 mg by mouth once daily Quinapril Discontinued 5 MG PO DAILY February 14, 2020 8:38am June 04, 2023 10:00am Start: 06-27-2016 End: 02-14-2020 take 1 tablet by mouth every other day Quinapril 10 MG tablet Discontinued 10 mg PO EVERY OTHER DAY June 27, 2016 12:00am February 14, 2020 9:40am tamsulosin hydrochloride 0.4 mg oral capsule (11 sources) alpha-Adrenergic Rizwana Start: 06-27-2016 End: 04-18-2021 take 1 capsule by mouth once daily Tamsulosin 0.4 MG capsule Discontinued 0.4 mg PO DAILY June 27, 2016 12:00am April 18, 2021 1:09pm Problems Active Problems Problem Classification Problem Date Documented Da te Episodic/Chronic Cardiac dysrhythmias (20 sources) Paroxysmal atrial flutter; Translations: [Unspecified atrial flutter] Onset: 08-24-2024 Chronic Chronic ulcer of skin (1 source) Non-pressure chronic ulcer of left calf with fat layer exposed; Translations: [Non-pressure chronic ulcer of left calf with fat layer exposed] Onset: 03-23-2025 Chronic Conduction disorders (19 sources) Cardiac pacemaker in situ; Translations: [Presence of cardiac pacemaker] Onset: 08-24-2024 Chronic Comment on above: Pacemaker generator change out 06/28/16 Deficiency and other anemia (11 sources) Anemia; Translations: [Anemia, unspecified] 09-17-2021 Episodic Comment on above: Stool for Occult blo od is negative. Disorders of lipid metabolism (14 sources) Hyperlipidemia; Translations: [Hyperlipidemia, unspecified] Onset: 07-30-2024 Chronic Epilepsy; convulsions (20 sources) Epilepsy; Translations: [Epilepsy, unspecified, not intractable, without status epilepticus] Onset: 08-16-2024 Chronic Essential hypertension (10 sources) Hypertensive disorder; Translations: [Essential (primary) hypertension] Onset: 07-30-2024 11-07-2022 Chronic Fluid and electrolyte disorders (18 sources) Hyponatremia; Translations: [Hypo-osmolality and hyponatremia] Episodic Genitourinary symptoms and ill-defined conditions (7 sources) Blood in urine; Translations: [Hematuria, unspecified] 02-24-2023 Episodic Hyperplasia of prostate (11 sources) Benign prostatic hypertrophy with outflow obstruction; Translations: [Benign prostatic hyperplasia with lower urinary tract symptoms] 04-18-2021 Chronic Inflammatory conditions of male genital organs (11 sources) Orchitis and epididymitis; Translations: [Epididymo-orchitis] 12-24-2021 Episodic Neoplasms of unspecified nature or uncertain behavior (20 sources) Monoclonal gammopathy of uncertain significance; Translations: [Monoclonal gammopathy] Onset: 11-22-2024 Chronic Comment on above: MGUS, M-spike on 02/10 is 0.6, stable.No evidence of progressive disease. Osteoarthritis (20 sources) Osteoarthritis of right knee joint; Translations: [Unilateral primary osteoarthritis, right knee] Onset: 03-04-2025 Chronic Other acquired deformities (5 sources) Scoliosis deformity of spine; Translations: [Scoliosis, unspecified] 07-30-2024 Chronic Other bone disease and musculoskeletal deformities (1 source) Lytic lesion of bone on X-ray; Translations: [Disorder of bone, unspecified] 11-20-2023 Episodic Other bone disease and musculoskeletal deformities (6 sources) Other specified disorders of bone, unspecified site; Translations: [Lytic lesion of bone on x-ray] 11-20-2023 Episodic Comment on above: PET/CT on 11/18/2023 r zahirad, showed no hypermetabolic activity.Discussed findings with Pt Other circulatory disease (11 sources) Disorder of carotid artery; Translations: [Disorder of arteries and arterioles, unspecified] 03-17-2019 Chronic Other connective tissue disease (5 sources) Inflammation of rotator cuff tendon; Translations: [Other shoulder lesions, unspecified shoulder] 11-17-2024 Episodic Other hereditary and degenerative nervous system conditions (8 sources) Essential tremor; Translations: [Essential tremor] 03-22-2025 Chronic Other male genital disorders (11 sources) Pain in testicle; Translations: [Testicular pain, unspecified] 12-24-2021 Episodic Other non-traumatic joint disorders (15 sources) Pain in right knee; Translations: [Right knee pain] 03-25-2022 Episodic Spondylosis; intervertebral disc disorders; other back problems (15 sources) Spondylosis without myelopathy or radiculopathy, cervical region; Translations: [Osteoarthritis of cervical spine] Onset: 02-18-2025 02-18-2025 Chronic Superficial injury; contusion (7 sources) Contusion, hip and thigh; Translations: [Contusion of unspecified hip, initial encounter] 10-27-2023 Episodic Unclassified (1 source) Low back pain, unspecified; Translations: [Low back pain, unspecified] Onset: 07-30-2024 Urinary tract infections (7 sources) Acute urinary tract infection; Translations: [Urinary tract infection, site not specified] 02-24-2023 Episodic Past or Other Problems Problem Classification Problem Date Documented Da te Episodic/Chronic Deficiency and other anemia (2 sources) Anemia, unspecified; Translations: [Anemia, unspecified] Onset: 11-22-2024 Episodic Other bone disease and musculoskeletal deformities (3 sources) Disorder of bone, unspecified; Translations: [Disorder of bone and cartilage, unspecified] Onset: 11-22-2024 11-05-2023 Episodic Other non-traumatic joint disorders (1 source) Pain in left shoulder; Translations: [Pain in left shoulder] Onset: 11-17-2024 Episodic Spondylosis; intervertebral disc disorders; other back problems (6 sources) Low back pain; Translations: [Low back pain] Onset: 11-17-2024 07-30-2024 Episodic Results Test Name Value Interpretation Reference Range Facility Orthopedic Visit Reporton Orthopedic Visit Report [facility] [address] [place] [address] [address] [id number] OFFICE VISIT Date of Service: 06/06/25 MR#: [id number] Acct: [id number] Name: FELI CASTILLO Rep #: [id number] : 1945 Provider: Dr. Curtis mcclure DO Age/Sex: 80/M Location: [facility] Status: Signed Intake Vital Signs 02/18/25:54 03/22/25 09:53 Height 5 ft 8 in 5 ft 8 in Weight: 138 lb BMI 20.9 BP 157/79 H Blood Pressure Location Lt brachial Position Sitting Respiration 16 Pulse 85 Pulse Source Monitor Temp 97.5 F L Temp Source Temporal Pulse Oximetry (%) 98 Oxygen Delivery Method room air Intake Visit Reasons: right knee Chief Complaint: Right knee Allergies carbamazepine Allergy (Severe, Verified 06/06/25 10:37) disorientation and elevated anxiety,fluid retention codeine Adverse Reaction (Severe, Verified 06/06/25 10:37) Vomiting guaifenesin (From Tacodaatussin ) Adverse Reaction (Verified 06/06/25 10:37) Vomiting Medications ???Medication ???Instructions ???Recorded ???Confirmed ???Type Lactobacillus acidophilus 500 1 ea PO DAILY 06/27/16 06/06/25 Hi story million cell-fructooligosac 50 mg tablet cholecalciferol (vitamin D3) 25 1,000 unit PO DAILY 06/27/1606/06 History mcg (1,000 unit) tablet loratadine 10 mg tablet 10 mg PO PRN PRN Allergies 6 06/06/25 History toygnlno-ojg-FB 200 mcg-vit K 15 1 ea PO DAILY 06/27/16 06/06/25 Hi story mcg-lycope 150 akm-fbrubm-lcrj tablet multivitamin with folic acid 400 1 tab PO DAILY 06/27/16 06/06/25 H istory mcg tablet omeprazole 20 mg capsule,delayed 20 mg PO DAILY 06/27/16 06/06/25 H istory release pravastatin 40 mg tablet 40 mg PO DAILY 06/27/16 06/06/25 H istory temazepam 30 mg capsule 30 mg PO QHS 06/27/16 06/06/25 His tory ascorbic acid (vitamin C) 1,000 mg 1 g PO QDAY 12/12/17 06/06/25 Hi story tablet timolol 0.5 % eye drops 1 drp RIGHT EYE BID 02/14/2006/06 History latanoprost 0.005 % eye drops 1 drp EACH EYE DAILY 04/11/21 08/03/06 History omega 7-cee-gde-fish oil 1,200 mg 1 cap PO TID 04/11/21 06/06/25 Hi story (144 mg-216 mg) capsule (Fish Oil) bethanechol chloride 5 mg tablet 5 mg PO TID 09/13/21 06/06/25 Hist ory miscellaneous medical supply 1 ea miscellaneous .PRN 01/03/23 0 06/06/25 Rx osteoarthritis of right knee 12 months #1 ea lisinopril 5 mg tablet 5 mg PO DAILY 06/04/23 06/06/25 Hi story aspirin 325 mg tablet,delayed 325 mg PO DAILY 12/22/23 06/06/25 History release lamotrigine 100 mg tablet 50 mg (1/2 x 100 mg) PO BID #90 06/06/25 Rx tabs levetiracetam 750 mg tablet 750 mg PO BID #180 tabs 03/22/25 0 06/06/25 Rx Have you fallen in the past year?: No PFSH Medical History Hyponatremia Epilepsy Wears glasses Prostate disease Low iron High cholesterol History of vertigo Former smoker History of stress test Hx of echocardiogram History of pacemaker Cardiology follow-up encounter History of atrial fibrillation Benign essential tremor Carotid artery disease Sick sinus syndrome Paroxysmal atrial flutter Ocular hypertension MGUS (monoclonal gammopathy of unknown significance) GERD (gastroesophageal reflux disease) Seizures Hyperlipidemia Cardiac pacemaker in situ ( 2006) Surgical History Hx of colonoscopy History of detached retina repair History of cataract surgery History of arthroscopy of right knee Family History Mother CVA (cerebral vascular accident) Diabetes Father Hypertension Social History Smoking Status: Former smoker Tobacco: How many years used: 4 how long ago did patient quit smokin second hand exposure: No alcohol intake: never substance use type: does not use what type of physical activity do you participate in: none ling/catholic: Scientologist seatbelt use: always HPI right knee Details: This documentation accurately reflects the service provided and the decisions made by me, Dr. Curtis Francis, DO 06/06/25 0746. Part of today???s visit was documented by Hannah ROBIN, acting as scribe. FELI CASTILLO is a 80 year old M here today for continued right knee pain requesting a steroid injection. 03/04/2025 visit:here today for right knee pain. His last injection was in November and he reports it was very helpful in reducing his pain. His pain has progressively been coming back over the last few weeks and he would like another injection today. Ortho Exam General General: Yes no acute distress Neurologic: Yes alert and Yes o (more content not included)... Normal [facility] Culture, Anaerobic Any Sourc melquiades 03-23-2025 CUAN LEFT LEG WOUND No growth in 5 days. Normal [facility] Comment on above: Performed By: #### M 100.2000, M100.4001, M100.3000 ####[facility] [id number] [place], [place], [id number] Neurology Visit Reporton Neurology Visit Report [facility] [address] [facility], [address] [place], [place] [address] OFFICE VISIT Date of Service: 03/22/25 MR#: [id number] Acct: [id number] Name: FELI CASTILLO Rep #: [id number] : 1945 Provider: Dr. Pool cisneros MD Age/Sex: 80/M Location: [facility] Status: Signed HPI HPI Details: Interim History: Feli returns for follow-up visit. He has a history of hyperlipidemia, impaired glucose tolerance, ocular hypertension, atrial flutter and sick sinus syndrome status post pacemaker placement in 2006 with revision in 2016, monoclonal gammopathy of unknown significance, and epilepsy. His seizures began around 2005. He had an episode of loss of consciousness/unresponsiv eness that was witnessed by his that was followed by postictal confusion. He did not have tongue biting or urinary incontinence. It is unclear whether he had any clonic or tonic motor activity at that time. He did not experience a preceding aura. Over the following year, he had further episodes of loss of consciousness similar to that described above. He was initially treated with carbamazepine, however this caused anxiety and disorientation and was discontinued. He was subsequently placed on levetiracetam however he continued to have some breakthrough seizures. He experienced seizure auras described as feeling vaguely unwell that would occur in isolation and would be triggered by incidents such as driving and looking at passing fence posts. Lamotrigine was then added and he has not had any seizures or seizure auras since around 2006. He was evaluated in the past with a head CT (due to his cardiac pacemaker he was unable to have a head MRI) and no cause for his seizures was identified. He reported that a prior EEG revealed no abnormality (official report is presently not available). A subsequent EEG (June 2021) was normal. There is no history of MANAGER APPLE infection, concussion or premature . He is tolerating levetiracetam and lamotrigine well. The option of tapering off of his anticonvulsant medications was discussed in the past and he decided to continue these medications. He has had a slight fine tremor in the hands that is worsened when he is anxious or tired. The tremor is not causing significant functional impairment apart from occasional mild impairment with handwriting. He sees an oncologist regarding a monoclonal gammopathy of unknown significance and this is being followed. He has had right knee injections for degenerative joint disease of the knee. Physical Exam: Neuro: The patient is awake and alert and responds appropriately; speech is fluent; a mild fine tremor is noted in the hands when arms are extended; no rigidity is noted in the wrists Neck: No bruits Heart: Regular rate and rhythm Supplemental Info Head CT (09/18/2016): FINDINGS: Normal soft tissue structures. There is a 1.3 cm x 0.8 cm lytic lesion involving the middle table of the left occipital bone. This corresponds to the radiographic findings. There is mild cerebral atrophy with widening of the extra-axial spaces and ventricular dilatation. There are areas of decreased attenuation within the white matter tracts of the supratentorial brain, consistent with microvascular disease changes. Normal basal ganglia and thalami. Normal brainstem. Normal cerebellum. There is no intracranial hemorrhage. There are no findings of an acute ischemic infarction. There is calcification of the vertebral arteries as well as the cavernous portions of the internal carotid arteries bilaterally. Normal visualized paranasal sinuses. IMPRESSION: There is a 1.3 cm x 0.8 cm lytic lesion involving the middle table of the left occipital bone. These images were reviewed on 06/14/2021. Moderate diffuse cerebral atrophy is noted. TSH (03/02/2018): Normal. 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 CBC, CMP (09/17/21): hemoglobin 11.9, hematocrit 34, sodium 132, glucose 131, alkaline phosphatase 133 Ammonia (01/08/2022): Normal. Lamotrigine level (01/08/2022): 2.5 (in therapeutic range) Levetiracetam level (01/08/2022): 22.1 (in therapeutic range) Serum free light chains, serum protein electrophoresis, serum immunoelectrophoresis iron, TIBC, iron saturation, ferritin, liver profile, B12, folate, CBC (02/25/2022): Free kappa light chains 85.2 (elevated), kappa/lambda ratio 6.41 (elevated), M spike 0.7 (elevated), immunofixation shows IgG monoclonal protein wi (more content not included)... Normal [facility] Gram Stainon 03-18-2025 GS LEFT LEG WOUND Gram Stain 2+ Red Blood Cells 1+ Gram negative rods Normal [facility] Comment on above: Performed By: #### M 100.1999, M100.4001, M100.3000 ####[facility] [address] [place], [place], [id number] Wound Cultureon 03-18-2025 WC LEFT LEG WOUND No growth aerobically. Normal [facility] Comment on above: Performed By: #### M 100.2000, M100.4001, M100.3000 ####[facility] [id number] [place], [place], [id number] Anaerobic cultureOrdered By: Jacobo Alex on 03-17-2025 Bacteria identified Anaer cx Nom (Unsp spec) No growth in [address] [facility] Gram stainOrdered By: Jacobo Alex on 03-17-2025 Microscopic observation Gram stain Nom (Unsp spec) [facility] Orthopedic Visit Reporton Orthopedic Visit Report [facility] [facility] [address] [place] [address] OFFICE VISIT Date of Service: 03/04/25 MR#: [id number] Acct: [id number] Name: FELI CASTILLO Rep #: [id number] : 1945 Provider: Dr. Curtis Prakash so, Age/Sex: 80/M Location: [facility] Status: Signed Intake Vital Signs 11/22/24 12:06 02/18/25 10:54 Height 5 ft 8 in 5 ft 8 in Intake Visit Reasons: RIGHT KNEE Chief Complaint: Right knee Is patient in pain?: Yes (Right knee ) Pain scale (1-10): 2 Allergies carbamazepine Allergy (Severe, Verified 03/04/25 10:20) disorientation and elevated anxiety,fluid retention codeine Adverse Reaction (Severe, Verified 03/04/25 10:20) Vomiting guaifenesin (From Cheratussin AC) Adverse Reaction (Verified 03/04/25 10:20) Vomiting Medications ???Medication ???Instructions ???Recorded ???Confirmed ???Type Lactobacillus acidophilus 500 1 ea PO DAILY 06/27/16 03/04/25 Hi story million cell-fructooligosac 50 mg tablet cholecalciferol (vitamin D3) 25 1,000 unit PO DAILY 06/27/1603/04 History mcg (1,000 unit) tablet loratadine 10 mg tablet 10 mg PO PRN PRN Allergies 6 03/04/25 History lycbohij-mpp-NW 200 mcg-vit K 15 1 ea PO DAILY 06/27/16 03/04/25 Hi story mcg-lycope 150 gfu-ncrxnz-xguw tablet multivitamin with folic acid 400 1 tab PO DAILY 06/27/16 03/04/25 H istory mcg tablet omeprazole 20 mg capsule,delayed 20 mg PO DAILY 06/27/16 03/04/25 H istory release pravastatin 40 mg tablet 40 mg PO DAILY 06/27/16 03/04/25 H istory temazepam 30 mg capsule 30 mg PO QHS 06/27/16 03/04/25 His tory ascorbic acid (vitamin C) 1,000 mg 1 g PO QDAY 12/12/17 03/04/25 Hi story tablet timolol 0.5 % eye drops 1 drp RIGHT EYE BID 02/14/2003/04 History latanoprost 0.005 % eye drops 1 drp EACH EYE DAILY 04/11/21 05/01/04 History omega 8-jtm-fdx-fish oil 1,200 mg 1 cap PO TID 04/11/21 03/04/25 Hi story (144 mg-216 mg) capsule (Fish Oil) bethanechol chloride 5 mg tablet 5 mg PO TID 09/13/21 03/04/25 Hist ory miscellaneous medical supply 1 ea miscellaneous .PRN 01/03/23 0 03/04/25 Rx osteoarthritis of right knee 12 months #1 ea lisinopril 5 mg tablet 5 mg PO DAILY 06/04/23 03/04/25 Hi story aspirin 325 mg tablet,delayed 325 mg PO DAILY 12/22/23 03/04/25 History release levetiracetam 750 mg tablet 750 mg PO BID #180 tabs 07/20/24 0 03/04/25 Rx lamotrigine 100 mg tablet 50 mg (1/2 x 100 mg) PO BID #90 03/04/25 Rx tabs Have you fallen in the past year?: No PFSH Medical History Hyponatremia Epilepsy Wears glasses Prostate disease Low iron High cholesterol History of vertigo Former smoker History of stress test Hx of echocardiogram History of pacemaker Cardiology follow-up encounter History of atrial fibrillation Benign essential tremor Carotid artery disease Sick sinus syndrome Paroxysmal atrial flutter Ocular hypertension MGUS (monoclonal gammopathy of unknown significance) GERD (gastroesophageal reflux disease) Seizures Hyperlipidemia Cardiac pacemaker in situ ( 2006) Surgical History Hx of colonoscopy History of detached retina repair History of cataract surgery History of arthroscopy of right knee Family History Mother CVA (cerebral vascular accident) Diabetes Father Hypertension Social History Smoking Status: Former smoker Tobacco: How many years used: 4 how long ago did patient quit smokin second hand exposure: No alcohol intake: never substance use type: does not use what type of physical activity do you participate in: none ling/catholic: Scientologist seatbelt use: always HPI RIGHT KNEE Details: This documentation accurately reflects the service provided and the decisions made by me, Dr. Curtis Francis, DO 03/04/25 0803. Part of today???s visit was documented by Batsheva Reed RN, acting as scribe. FELI CASTILLO is a 80 year old M here today for right knee pain. His last injection was in November and he reports it was very helpful in reducing his pain. His pain has progressively been coming back over the last few weeks and he would like another injection today. Ortho Exam General General: Yes no acute distress Neurologic: Yes alert and Yes oriented x3 Psychologic: Yes reasonable and appropriate Right Knee Skin/Wound: No erythema, No ecchymosis and No swelling Homans Sign: No Knee ROM: No ROM-Extension -20 to 0 (lacking 3) and No ROM-Flexion 0-140 (120) Examination: No (more content not included)... Normal [facility] Cerv Spine 2 or 3 Viewson Cerv Spine 2 or 3 Views [facility] [address] [place] [address] Cerv Spine 2 or 3 Views MR#: [id number] Acct: [id number] Name: FELI CASTILLO Rep #: [id number] : 1945 M 80 From: Socrates White MD PCP: Dr. Socrates Kumar, DO Status: DEP AMB Study: Cerv Spine 2 or 3 Views Date of Exam: 02/18/25 Exam# [id number] Ordering Dr: Alla Burks PA EXAM: XR Cervical Spine, 2 or 3 Views CLINICAL INDICATION: CHRONIC PAIN, PT IS KYPHOTIC TECHNIQUE: Frontal and lateral views of the cervical spine. COMPARISON: No relevant prior studies available. FINDINGS: VERTEBRAE: Degenerative facet arthropathy throughout the cervical spine. Kyphotic curvature of the cervical spine. Normal alignment. No acute fracture or significant dynamic instability. DISC SPACES: Degenerative disc disease throughout the cervical spine. SOFT TISSUES: Unremarkable. RAD/Cerv Spine 2 or 3 Views IMPRESSION: 1. No acute fracture or significant dynamic instability. 2. Degenerative changes of the cervical spine as described. Reading Location: [facility] CC: LEONELA Woods; Dr. Socrates Kumar DO Java Analyst: Signed Normal [facility] Orthopedic Visit Reporton Orthopedic Visit Report [facility] [address] [place] [address] OFFICE VISIT Date of Service: 02/18/25 MR#: [id number] Acct: [id number] Name: FELI CASTILLO Rep #: [id number] : 1945 Provider: LEONELA Woods Age/Sex: 80/M Location: [facility] Status: Signed Intake Vital Signs 11/22/24 12:06 02/18/25 10:54 Height 5 ft 8 in 5 ft 8 in Weight: 144 lb BMI 21.9 Intake Visit Reasons: CERVICAL SPINE Chief Complaint: Cervical spine pain Accompanied by: Self Is patient in pain?: Yes Pain scale (1-10): 1 Allergies carbamazepine Allergy (Severe, Verified 02/18/25 10:57) disorientation and elevated anxiety,fluid retention codeine Adverse Reaction (Severe, Verified 02/18/25 10:57) Vomiting guaifenesin (From Cheratussin AC) Adverse Reaction (Verified 02/18/25 10:57) Vomiting Medications ???Medication ???Instructions ???Recorded ???Confirmed ???Type Lactobacillus acidophilus 500 1 ea PO DAILY 06/27/16 02/18/25 Hi story million cell-fructooligosac 50 mg tablet cholecalciferol (vitamin D3) 25 1,000 unit PO DAILY 06/27/1602/18 History mcg (1,000 unit) tablet loratadine 10 mg tablet 10 mg PO PRN PRN Allergies 6 02/18/25 History xyyphvjx-uqs-PY 200 mcg-vit K 15 1 ea PO DAILY 06/27/16 02/18/25 Hi story mcg-lycope 150 lqx-rxjpok-pzhd tablet multivitamin with folic acid 400 1 tab PO DAILY 06/27/16 02/18/25 H istory mcg tablet omeprazole 20 mg capsule,delayed 20 mg PO DAILY 06/27/16 02/18/25 H istory release pravastatin 40 mg tablet 40 mg PO DAILY 06/27/16 02/18/25 H istory temazepam 30 mg capsule 30 mg PO QHS 06/27/16 02/18/25 His tory ascorbic acid (vitamin C) 1,000 mg 1 g PO QDAY 12/12/17 02/18/25 Hi story tablet timolol 0.5 % eye drops 1 drp RIGHT EYE BID 02/14/2002/18 History latanoprost 0.005 % eye drops 1 drp EACH EYE DAILY 04/11/2107/07 History omega 7-uaw-glb-fish oil 1,200 mg 1 cap PO TID 04/11/21 02/18/25 Hi story (144 mg-216 mg) capsule (Fish Oil) bethanechol chloride 5 mg tablet 5 mg PO TID 09/13/21 02/18/25 Hist ory miscellaneous medical supply 1 ea miscellaneous .PRN 01/03/23 0 02/18/25 Rx osteoarthritis of right knee 12 months #1 ea lisinopril 5 mg tablet 5 mg PO DAILY 06/04/23 02/18/25 Hi story aspirin 325 mg tablet,delayed 325 mg PO DAILY 12/22/23 02/18/25 History release lamotrigine 100 mg tablet 50 mg (1/2 x 100 mg) PO BID #90 02/18/25 Rx tabs levetiracetam 750 mg tablet 750 mg PO BID #180 tabs 07/20/24 0 02/18/25 Rx Have you fallen in the past year?: No PFSH Medical History Hyponatremia Epilepsy Wears glasses Prostate disease Low iron High cholesterol History of vertigo Former smoker History of stress test Hx of echocardiogram History of pacemaker Cardiology follow-up encounter History of atrial fibrillation Benign essential tremor Carotid artery disease Sick sinus syndrome Paroxysmal atrial flutter Ocular hypertension MGUS (monoclonal gammopathy of unknown significance) GERD (gastroesophageal reflux disease) Seizures Hyperlipidemia Cardiac pacemaker in situ ( 2006) Surgical History Hx of colonoscopy History of detached retina repair History of cataract surgery History of arthroscopy of right knee Family History Mother CVA (cerebral vascular accident) Diabetes Father Hypertension Social History Smoking Status: Former smoker Tobacco: How many years used: 4 how long ago did patient quit smokin second hand exposure: No alcohol intake: never substance use type: does not use what type of physical activity do you participate in: none ling/catholic: Scientologist seatbelt use: always HPI CERVICAL SPINE Details: This documentation accurately reflects the service provided and the decisions made by me, LEONELA Woods 02/18/25 1054. Part of today???s visit was documented by Jermain Underwood MA, acting as scribe. FELI CASTILLO is a 80 year old M here today for cervical spine pain. Patient is having pain in the back of the neck. The pain really hurts. When he turns his head it feels like a shocking sensation. Initially his pain was about one week ago when it was at its worse. Since then the pain has practically resolved. Patient saw Dr. Francis for his left shoulder. He got an injections and it helped the shoulder. Patient thinks that the pain from the left shoulder went up to the neck. Patient denies any surgeries on the neck. Patient stated that moving the nec (more content not included)... Normal [facility] Orthopedic Visit Reporton Orthopedic Visit Report [facility] [address] [place] [id number] OFFICE VISIT Date of Service: 12/03/24 MR#: [id number] Acct: [id number] Name: FELI CASTILLO Rep #: [id number] : 1945 Provider: Dr. Curtis mcclure, DO Age/Sex: 79/M Location: [facility] Status: Signed Intake Vital Signs 07/29/24 10:26 11/22/24 12:06 Height 5 ft 8 in 5 ft 8 in Intake Visit Reasons: RIGHT KNEE Chief Complaint: right knee Is patient in pain?: Yes (right knee) Pain scale (1-10): 1 Allergies carbamazepine Allergy (Severe, Verified 12/03/24 10:19) disorientation and elevated anxiety,fluid retention codeine Adverse Reaction (Severe, Verified 12/03/24 10:19) Vomiting guaifenesin (From Cheratussin AC) Adverse Reaction (Verified 12/03/24 10:19) Vomiting Medications ???Medication ???Instructions ???Recorded ???Confirmed ???Type Lactobacillus acidophilus 500 1 ea PO DAILY 06/27/16 11/22/24 Hi story million cell-fructooligosac 50 mg tablet cholecalciferol (vitamin D3) 25 1,000 unit PO DAILY 06/27/1611/22 History mcg (1,000 unit) tablet loratadine 10 mg tablet 10 mg PO PRN PRN Allergies 6 11/22/24 History yxdmsuma-hdy-RO 200 mcg-vit K 15 1 ea PO DAILY 06/27/16 11/22/24 Hi story mcg-lycope 150 uwc-gcvdxl-wrzt tablet multivitamin with folic acid 400 1 tab PO DAILY 06/27/16 11/22/24 H istory mcg tablet omeprazole 20 mg capsule,delayed 20 mg PO DAILY 06/27/16 11/22/24 H istory release pravastatin 40 mg tablet 40 mg PO DAILY 06/27/16 11/22/24 H istory temazepam 30 mg capsule 30 mg PO QHS 06/27/16 11/22/24 His tory ascorbic acid (vitamin C) 1,000 mg 1 g PO QDAY 12/12/17 11/22/24 Hi story tablet timolol 0.5 % eye drops 1 drp RIGHT EYE BID 02/14/2011/22 History latanoprost 0.005 % eye drops 1 drp EACH EYE DAILY 04/11/2111/13 History omega 0-qme-yrk-fish oil 1,200 mg 1 cap PO TID 04/11/21 11/22/24 Hi story (144 mg-216 mg) capsule (Fish Oil) bethanechol chloride 5 mg tablet 5 mg PO TID 09/13/21 11/22/24 Hist ory miscellaneous medical supply 1 ea miscellaneous .PRN 01/03/23 0 11/22/24 Rx osteoarthritis of right knee 12 months #1 ea lisinopril 5 mg tablet 5 mg PO DAILY 06/04/23 11/22/24 Hi story aspirin 325 mg tablet,delayed 325 mg PO DAILY 12/22/23 11/22/24 History release lamotrigine 100 mg tablet 50 mg (1/2 x 100 mg) PO BID #90 11/22/24 Rx tabs levetiracetam 750 mg tablet 750 mg PO BID #180 tabs 07/20/24 0 11/22/24 Rx Have you fallen in the past year?: No PFSH Medical History Hyponatremia Epilepsy Wears glasses Prostate disease Low iron High cholesterol History of vertigo Former smoker History of stress test Hx of echocardiogram History of pacemaker Cardiology follow-up encounter History of atrial fibrillation Benign essential tremor Carotid artery disease Sick sinus syndrome Paroxysmal atrial flutter Ocular hypertension MGUS (monoclonal gammopathy of unknown significance) GERD (gastroesophageal reflux disease) Seizures Hyperlipidemia Cardiac pacemaker in situ ( 2006) Surgical History Hx of colonoscopy History of detached retina repair History of cataract surgery History of arthroscopy of right knee Family History Mother CVA (cerebral vascular accident) Diabetes Father Hypertension Social History Smoking Status: Former smoker Tobacco: How many years used: 4 how long ago did patient quit smokin second hand exposure: No alcohol intake: never substance use type: does not use what type of physical activity do you participate in: none ling/catholic: Scientologist seatbelt use: always HPI RIGHT KNEE Chief Complaint: right knee Details: This documentation accurately reflects the service provided and the decisions made by me, Dr. Curtis Francis, DO 12/03/24 0807. Part of today???s visit was documented by [ ], acting as scribe. FELI CASTILLO is a 79 year old M here today for right knee pain. He presents using a cane for ambulation. He states he is experiencing mild pain his right knee today. His last injection was 08-25-24 and was helpful up until recently. Ortho Exam General General: Yes no acute distress Neurologic: Yes alert and Yes oriented x3 Psychologic: Yes reasonable and appropriate Right Knee Skin/Wound: No erythema, No ecchymosis and No swelling Homans Sign: No Knee ROM: No ROM-Extension -20 to 0 (lacking 3) and No ROM-Flexion 0-140 (120) Examination: No Med jt line tenderness, No Lat jt line tenderness and No Crepitus Stability: NML (more content not included)... Normal [facility] Oncology Visit Reporton 11-13 Oncology Visit Report [facility] [address] [place] [address] OFFICE VISIT Date of Service: 11/22/24 1204 MR#: [id number] Acct: [id number] Name: FELI CASTILLO Rep #: [id number] : 1945 From: Ely RichardsC Age/Sex: 79/M [facility] Status: Signed HPI Subjective Date of Service 11/22/24 Chief Complaint MGUS History of Present Illness 79 year-old man was diagnosed with monoclonal gammopathy in July 2016. Bone marrow biopsy was negative. Skeletal survey showed lytic lesions in the scalp and right humerus. M spike was IgG kappa 0.6g/dl. The patient was referred to Orthopedic Surgery at [facility] and was seen on 10/22/[address] Capellan, who suggested observation for Lytic lesion of unknown significance and biopsy could not be done. He had a fall, X-ray on pelvis 09/29/2023 showed lytic lesion R iliac bone. PET/CT on 11/18/2023 was negative. Interval History The patient is presenting to clinic for an annual visit. He denies any concerns r/t today's visit. States he has made attempts to increase sodium in his diet. He is not on any diuretics at this time. Specifically denies fever/chills, sweats, headache, dizziness, CP, palpitations, cough, abd pain, swelling/pain of his extremities. C/o left shoulder pain- follows with ortho. Had cortisone injection on 11/17/24 and pain has resolved. Otherwise denies bone pain. Walks with cane. No falls. PFS Medical History Hyponatremia Epilepsy Wears glasses Prostate disease Low iron High cholesterol History of vertigo Former smoker History of stress test Hx of echocardiogram History of pacemaker Cardiology follow-up encounter History of atrial fibrillation Benign essential tremor Carotid artery disease Sick sinus syndrome Paroxysmal atrial flutter Ocular hypertension MGUS (monoclonal gammopathy of unknown significance) GERD (gastroesophageal reflux disease) Seizures Hyperlipidemia Cardiac pacemaker in situ ( 2006) Surgical History Hx of colonoscopy History of detached retina repair History of cataract surgery History of arthroscopy of right knee Family History Mother CVA (cerebral vascular accident) Diabetes Father Hypertension Social History Smoking Status: Former smoker Tobacco: How many years used: 4 how long ago did patient quit smokin second hand exposure: No alcohol intake: never substance use type: does not use what type of physical activity do you participate in: none ling/catholic: Scientologist seatbelt use: always ROS ROS Narrative Negative except as documented in the interval HPI Intake Vital Signs 07/29/24 10:26 11/16/24 12:47 11/22/24 12:06 Height 5 ft 8 in 5 ft 8 in 5 ft 8 in Weight: 138 lb BMI 20.9 BP 159/74 H Blood Pressure Location Rt brachial Position Sitting Respiration 16 Pulse 66 Pulse Source Monitor Temp 98.3 F Temperature Source Temporal Artery Pulse Oximetry (%) 100 Intake Forensic Scientist Required: No Accompanied by: Self Is patient in pain?: No (right knee, ortho following) Allergies carbamazepine Allergy (Severe, Verified 11/22/24 12:11) disorientation and elevated anxiety,fluid retention codeine Adverse Reaction (Severe, Verified 11/22/24 12:11) [facility] Adverse Reaction (Verified 11/22/24 12:11) Vomiting Medications ???Medication ???Instructions ???Recorded ???Confirmed ???Type Lactobacillus acidophilus 500 1 ea PO DAILY 06/27/16 11/22/24 Hi story million cell-fructooligosac 50 mg tablet cholecalciferol (vitamin D3) 25 1,000 unit PO DAILY 06/27/1611/22 History mcg (1,000 unit) tablet loratadine 10 mg tablet 10 mg PO PRN PRN Allergies 6 11/22/24 History gwdbjjzr-sbi-EQ 200 mcg-vit K 15 1 ea PO DAILY 06/27/16 11/22/24 Hi story mcg-lycope 150 qgn-fwfidl-lbry tablet multivitamin with folic acid 400 1 tab PO DAILY 06/27/16 11/22/24 H istory mcg tablet omeprazole 20 mg capsule,delayed 20 mg PO DAILY 06/27/16 11/22/24 H istory release pravastatin 40 mg tablet 40 mg PO DAILY 06/27/16 11/22/24 H istory temazepam 30 mg capsule 30 mg PO QHS 06/27/16 11/22/24 His tory ascorbic acid (vitamin C) 1,000 mg 1 g PO QDAY 12/12/17 11/22/24 Hi story tablet timolol 0.5 % eye drops 1 drp RIGHT EYE BID 02/14/2011/22 History latanoprost 0.005 % eye drops 1 drp EACH EYE DAILY 04/11/2111/13 History omega 3-voe-wrd-fish oil 1,200 mg 1 cap PO TID 04/11/21 11/22/24 Hi story (144 mg-216 mg) capsule (Fish Oil) bethanechol chloride 5 (more content not included)... Normal [facility] Cerv Spine 2 or 3 Viewson Cerv Spine 2 or 3 Views [facility] Imaging Services [address] [place] [address] Cerv Spine 2 or 3 Views MR#: [id number] Acct: [id number] Name: FELI CASTILLO Rep #: [id number] : 1945 M 79 From: Socrates White MD PCP: Dr. Socrates Kumar DO Status: DEP AMB Study: Cerv Spine 2 or 3 Views Date of Exam: 11/17/24 Exam# [id number] Ordering Dr: Curtis Francis DO EXAM: XR Cervical Spine, 2 or 3 Views CLINICAL INDICATION: TECHNIQUE: Frontal and lateral views of the cervical spine. COMPARISON: No relevant prior studies available. FINDINGS: VERTEBRAE: Unremarkable. No definite fracture. Normal alignment. DISC SPACES: No acute findings. No significant narrowing. SOFT TISSUES: Unremarkable. RAD/Cerv Spine 2 or 3 Views IMPRESSION: No acute fracture. Reading Location: [facility] CC: Dr. Curtis Francis DO; Dr. Socrates Kumar DO Java Analyst: Signed Normal [facility] Shoulder min 2 Viewson 11-17 Shoulder min 2 Views [facility] Imaging Services [address] [place], [place] [address] Shoulder min 2 Views MR#: [id number] Acct: [id number] Name: FELI CASTILLO Rep #: [id number] : 1945 M 79 From: Socrates White MD PCP: Dr. Socrates Kumar DO Status: DEP AMB Study: Shoulder min 2 Views Date of Exam: 11/17/24 Exam# [id number] Ordering Dr: Curtis Francis DO EXAM: XR Left Shoulder Complete, 2 or More Views CLINICAL INDICATION: TECHNIQUE: Two or more views of the left shoulder. COMPARISON: No relevant prior studies available. FINDINGS: BONES/JOINTS: Unremarkable. No acute fracture. No dislocation. SOFT TISSUES: Unremarkable. RAD/Shoulder min 2 Views IMPRESSION: No acute fracture. Reading Location: [facility] CC: Dr. Curtis Francis DO; Dr. Socrates Kumar DO Java Analyst: Signed Normal [facility] DARIUSZ + Protein Elect, Serumon 11-16-2024 Albumin [Mass/Vol] 3.7 g/dL Normal 2.9-4.4 [facility] Comment on above: Order Comment: Y Performed By: #### L 3100.3425, L3130.0010, L101.9900, L500.4050, L100.0100, L501.6710, L504.2610 ####[facility] [address] [place], [address] Albumin/Globulin [Mass ratio] 1.1 {ratio} Normal 0.7-1.7 [facility] Comment on above: Order Comment: Y Performed By: #### L 3100.3425, L3130.0010, L101.9900, L500.4050, L100.0100, L501.6710, L504.2610 ####[facility] [address] [place], [address] UJTYP-5-TWPM 0.3 g/dL Normal 0.0-0.4 [facility] Comment on above: Order Comment: Y Performed By: #### L 3100.3425, L3130.0010, L101.9900, L500.4050, L100.0100, L501.6710, L504.2610 ####[facility] [address] [place], [address] COPCE-6-PXWR 0.9 g/dL Normal 0.4-1.0 [facility] Comment on above: Order Comment: Y Performed By: #### L 3100.3425, L3130.0010, L101.9900, L500.4050, L100.0100, L501.6710, L504.2610 ####[facility] [address] [place], [address] BETA GLOBULIN 1.2 g/dL Normal 0.7-1.3 [facility] Comment on above: Order Comment: Y Performed By: #### L 3100.3425, L3130.0010, L101.9900, L500.4050, L100.0100, L501.6710, L504.2610 ####[facility] [address] [place], [place], [phone] GAMMA GLOBULIN 1.1 g/dL Normal 0.4-1.8 [facility] Comment on above: Order Comment: Y Performed By: #### L 3100.3425, L3130.0010, L101.9900, L500.4050, L100.0100, L501.6710, L504.2610 ####[facility] [address] [place], [place], [phone]([phone] Globulin (S) [Mass/Vol] 3.6 g/dL Normal 2.2-3.9 [facility] Comment on above: Order Comment: Y Performed By: #### L 3100.3425, L3130.0010, L101.9900, L500.4050, L100.0100, L501.6710, L504.2610 ####[facility] [address] [place], [place], [phone] DARIUSZ RESULT,S Comment Abnormal . 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 PLEASE NOTE: Samples from patients receiving DARZALEX(R) (daratumumab) or SARCLISA(R)(isatuximab-irfc) treatment can appear as an IgG kappa and mask a complete response (CR). If this patient is receiving these therapies, this DARIUSZ assay interference can be removed by ordering test number [id number], Daratumumab-Specific, Serum or [id number], Isatuximab-Specific, Serum and submitting a new sample for testing or by calling the lab to add this test to the current sample. Performed By: #### L 3100.3425, L3130.0010, L101.9900, L500.4050, L100.0100, L501.6710, L504.2610 ####[facility] [address] [place], [address] IMMUNOGLOB A QN 358 mg/dL Normal 61-437 [facility] Comment on above: Order Comment: Y Performed By: #### L 3100.3425, L3130.0010, L101.9900, L500.4050, L100.0100, L501.6710, L504.2610 ####[facility] [address] [place], [place], [phone] IMMUNOGLOB G QN 1153 mg/dL Normal 603-1613 [facility] Comment on above: Order Comment: Y Performed By: #### L 3100.3425, L3130.0010, L101.9900, L500.4050, L100.0100, L501.6710, L504.2610 ####[facility] [address] [place], [place], [phone] IMMUNOGLOB M QN 44 mg/dL Normal 15-143 [facility] Comment on above: Order Comment: Y Performed By: #### L 3100.3425, L3130.0010, L101.9900, L500.4050, L100.0100, L501.6710, L504.2610 ####[facility] [address] [place], [place], [phone] M-Gumaro 0.8 g/dL Abnormal Not Observed [facility] Comment on above: Order Comment: Y Performed By: #### L 3100.3425, L3130.0010, L101.9900, L500.4050, L100.0100, L501.6710, L504.2610 ####[facility] [address] [place], [place], [phone] NOTE: Comment Normal . [facility] Comment on above: Order Comment: Y Result Comment: Prot ein electrophoresis scan will follow via computer, mail, or chief port director delivery. Performed By: #### L 3100.3425, L3130.0010, L101.9900, L500.4050, L100.0100, L501.6710, L504.2610 ####[facility] [address] [place], [place], [phone] Protein [Mass/Vol] 7.3 g/dL Normal 6.0-8.5 [facility] Comment on above: Order Comment: Y Performed By: #### L 3100.3425, L3130.0010, L101.9900, L500.4050, L100.0100, L501.6710, L504.2610 ####[facility] [address] [place], [place], [phone] Drew Lambda Light Chainson 11-16-2024 FR KAPPA LT CHN 100.9 mg/L Abnormal 3.3-19.4 [facility] Comment on above: Performed By: #### L 3100.3425, L3130.0010, L101.9900, L500.4050, L100.0100, L501.6710, L504.2610 ####[facility] [address] [place], [place], [phone] FR LAMBDA LT CH 16.2 mg/L Normal 5.7-26.3 [facility] Comment on above: Performed By: #### L 3100.3425, L3130.0010, L101.9900, L500.4050, L100.0100, L501.6710, L504.2610 ####[facility] [address] [place], [place], [phone] KAPPA/LAMBDA % 6.23 Abnormal 0.26-1.65 [facility] Comment on above: Result Comment: Perf ormed at: - [facility] [id number] Pharmacy Affairs Assistant: Damion Garland PhD, Phone: [phone] Performed By: #### L 3100.3425, L3130.0010, L101.9900, L500.4050, L100.0100, L501.6710, L504.2610 ####[facility] [address] [place], [address] CBC W/Diff, Automatedon 01-3 0-2025 Absolute Lymph 1.99 X10 3/uL Normal 0.83-4.51 [facility] Comment on above: Performed By: #### L 3100.3425, L3130.0010, L101.9900, L500.4050, L100.0100, L501.6710, L504.2610 #### [facility] [address] [place], [address] Absolute Neut 7.7 X10 3/uL Normal 2.0-7.7 [facility] Comment on above: Performed By: #### L 3100.3425, L3130.0010, L101.9900, L500.4050, L100.0100, L501.6710, L504.2610 #### [facility] [address] [place], [address] Basophils/100 WBC (Bld) 0.9 % Normal 0-1 [facility] Comment on above: Performed By: #### L 3100.3425, L3130.0010, L101.9900, L500.4050, L100.0100, L501.6710, L504.2610 #### [facility] [address] [place], [address] Eosinophils/100 WBC (Bld) 4.0 % Normal 0-5 [facility] Comment on above: Performed By: #### L 3100.3425, L3130.0010, L101.9900, L500.4050, L100.0100, L501.6710, L504.2610 #### [facility] [address] [place], [address] Erythrocyte distribution width (RBC) [Ratio] 12.5 % Normal 11.6-14.6 [facility] Comment on above: Performed By: #### L 3100.3425, L3130.0010, L101.9900, L500.4050, L100.0100, L501.6710, L504.2610 #### [facility] [address] [place], [address] Hematocrit (Bld) [Volume fraction] 38.9 % Low 40-54 [facility] Comment on above: Performed By: #### L 3100.3425, L3130.0010, L101.9900, L500.4050, L100.0100, L501.6710, L504.2610 #### [facility] [address] [place], [address] Hemoglobin (Bld) [Mass/Vol] 13.3 g/dL Normal 13.0-16.5 [facility] Comment on above: Performed By: #### L 3100.3425, L3130.0010, L101.9900, L500.4050, L100.0100, L501.6710, L504.2610 #### [facility] [address] [place], [address] IG% 0.400 Normal 0.0-0.9 [facility] Comment on above: Result Comment: IG% - Immature Granulocytes (promyelocytes, myelocytes and metamyelocytes) > 1% indicates that a LEFT SHIFT is Present. Performed By: #### L 3100.3425, L3130.0010, L101.9900, L500.4050, L100.0100, L501.6710, L504.2610 #### [facility] [address] [place], [address] Lymphocytes/100 WBC (Bld) 18.3 % Low 19-41 [facility] Comment on above: Performed By: #### L 3100.3425, L3130.0010, L101.9900, L500.4050, L100.0100, L501.6710, L504.2610 #### [facility] [address] [place], [address] MCH (RBC) [Entitic mass] 31.1 pg Normal 27.0-32.0 [facility] Comment on above: Performed By: #### L 3100.3425, L3130.0010, L101.9900, L500.4050, L100.0100, L501.6710, L504.2610 #### [facility] [address] [place], [address] MCHC (RBC) [Mass/Vol] 34.2 g/dL Normal 32-36 [facility] Comment on above: Performed By: #### L 3100.3425, L3130.0010, L101.9900, L500.4050, L100.0100, L501.6710, L504.2610 #### [facility] [address] [place], [address] MCV (RBC) [Entitic vol] 90.9 fL Normal 80-94 [facility] Comment on above: Performed By: #### L 3100.3425, L3130.0010, L101.9900, L500.4050, L100.0100, L501.6710, L504.2610 #### [facility] [address] [place], [address] Monocytes/100 WBC (Bld) 5.7 % Normal 0-10 [facility] Comment on above: Performed By: #### L 3100.3425, L3130.0010, L101.9900, L500.4050, L100.0100, L501.6710, L504.2610 #### [facility] [address] [place], [address] Neutrophils/100 WBC (Bld) 70.7 % High 47-70 [facility] Comment on above: Performed By: #### L 3100.3425, L3130.0010, L101.9900, L500.4050, L100.0100, L501.6710, L504.2610 #### [facility] [address] [place], [address] Nucleated RBC (Bld) [#/Vol] 0 10*3/uL Normal 0-5 [facility] Comment on above: Performed By: #### L 3100.3425, L3130.0010, L101.9900, L500.4050, L100.0100, L501.6710, L504.2610 #### [facility] [address] [place], [address] Platelet mean volume (Bld) [Entitic vol] 9.2 fL Normal 6.2-12.0 [facility] Comment on above: Performed By: #### L 3100.3425, L3130.0010, L101.9900, L500.4050, L100.0100, L501.6710, L504.2610 #### [facility] [address] [place], [address] Platelets (Bld) [#/Vol] 302 10*3/uL Normal 150-450 [facility] Comment on above: Performed By: #### L 3100.3425, L3130.0010, L101.9900, L500.4050, L100.0100, L501.6710, L504.2610 #### [facility] [address] [place], [address] RBC (Bld) [#/Vol] 4.28 10*6/uL Low 4.6-6.2 [facility] Comment on above: Performed By: #### L 3100.3425, L3130.0010, L101.9900, L500.4050, L100.0100, L501.6710, L504.2610 #### [facility] [address] [place], [address] RDW SD 41.0 fl Normal 35.1-43.9 [facility] Comment on above: Performed By: #### L 3100.3425, L3130.0010, L101.9900, L500.4050, L100.0100, L501.6710, L504.2610 #### [facility] [address] [place], [place], [phone] (383) WBC (Bld) [#/Vol] 10.9 10*3/uL Normal 4.4-11.0 [facility] Comment on above: Performed By: #### L 3100.3425, L3130.0010, L101.9900, L500.4050, L100.0100, L501.6710, L504.2610 #### [facility] [address] [place], [place], [phone] ([phone]) CRPon 11-11-2024 C-REACTIVE PROT 4.91 mg/L High 0.0-3.0 [facility] Comment on above: Result Comment: C-Re active Protein (CRP) provides useful information for the diagnosis, therapy and monitoring of inflammatory processes and associated diseases. For the evaluation of Relative Risk for Cardiovascular Disease, a High Sensitivity CRP (HSCRP) should be ordered. Performed By: #### L 3100.3425, L3130.0010, L101.9900, L500.4050, L100.0100, L501.6710, L504.2610 ####[facility] [address] [place], [address] Comprehensive Metabolic Prof ilon 11-11-2024 Albumin [Mass/Vol] 3.5 g/dL Normal 3.2-5.0 [facility] Comment on above: Performed By: #### L 3100.3425, L3130.0010, L101.9900, L500.4050, L100.0100, L501.6710, L504.2610 ####[facility] [address] [place], [place], [phone]([phone] Albumin/Globulin [Mass ratio] 0.8 {ratio} Low 0.9-2.4 [facility] Comment on above: Performed By: #### L 3100.3425, L3130.0010, L101.9900, L500.4050, L100.0100, L501.6710, L504.2610 ####[facility] [address] [place], [address] ALK P 144 U/L High 45-117 [facility] Comment on above: Performed By: #### L 3100.3425, L3130.0010, L101.9900, L500.4050, L100.0100, L501.6710, L504.2610 ####[facility] [address] [place], [address] ALT [Catalytic activity/Vol] 18 U/L Normal 16-61 [facility] Comment on above: Performed By: #### L 3100.3425, L3130.0010, L101.9900, L500.4050, L100.0100, L501.6710, L504.2610 ####[facility] [address] [place], [address] AST [Catalytic activity/Vol] 29 U/L Normal 15-37 [facility] Comment on above: Performed By: #### L 3100.3425, L3130.0010, L101.9900, L500.4050, L100.0100, L501.6710, L504.2610 ####[facility] [address] [place], [address] Bilirubin [Mass/Vol] 0.50 mg/dL Normal 0.20-1.00 [facility] Comment on above: Result Comment: For patients on eltrombopag therapy, use of Dimension [place] TBIL is not recommended. Performed By: #### L 3100.3425, L3130.0010, L101.9900, L500.4050, L100.0100, L501.6710, L504.2610 ####[facility] [address] [place], [address] BUN/CRE 12.5 RATIO Normal 10-20 [facility] Comment on above: Performed By: #### L 3100.3425, L3130.0010, L101.9900, L500.4050, L100.0100, L501.6710, L504.2610 ####[facility] [address] [place], [address] CA,Total 9.2 mg/dL Normal 8.5-10.1 [facility] Comment on above: Performed By: #### L 3100.3425, L3130.0010, L101.9900, L500.4050, L100.0100, L501.6710, L504.2610 ####[facility] [address] [place], [address] Chloride [Moles/Vol] 94 mmol/L Low 98-107 [facility] Comment on above: Performed By: #### L 3100.3425, L3130.0010, L101.9900, L500.4050, L100.0100, L501.6710, L504.2610 ####[facility] [address] [place], [address] CO2 [Moles/Vol] 25.0 mmol/L Normal 21.0-32.0 [facility] Comment on above: Performed By: #### L 3100.3425, L3130.0010, L101.9900, L500.4050, L100.0100, L501.6710, L504.2610 ####[facility] [address] [place], [address] Creatinine [Mass/Vol] 1.28 mg/dL Normal 0.70-1.30 [facility] Comment on above: Result Comment: The validity of the calculated GFR GFRAA in patients over 70 years has not been determined. Clinical correlation is essential. Performed By: #### L 3100.3425, L3130.0010, L101.9900, L500.4050, L100.0100, L501.6710, L504.2610 ####[facility] [address] [place], [place], [phone](112) ECRCL 43.03 ml/min Normal [facility] Comment on above: Performed By: #### L 3100.3425, L3130.0010, L101.9900, L500.4050, L100.0100, L501.6710, L504.2610 ####[facility] [address] [place], [place], [phone](404) EST GFR - AA 69 mL/min Normal >60 [facility] Comment on above: Result Comment: Afri can Eritrean GFR Calc Performed By: #### L 3100.3425, L3130.0010, L101.9900, L500.4050, L100.0100, L501.6710, L504.2610 ####[facility] [address] [place], [place], [phone](960) GAP 8 Normal 5-15 [facility] Comment on above: Performed By: #### L 3100.3425, L3130.0010, L101.9900, L500.4050, L100.0100, L501.6710, L504.2610 ####[facility] [address] [place], [place], [phone](515) GFR/1.73 sq M.predicted among non-blacks MDRD (S/P/Bld) [Vol rate/Area] 57 mL/min/{1.73_m2} Low >60 [facility] Comment on above: Result Comment: Non- GFR Calc Performed By: #### L 3100.3425, L3130.0010, L101.9900, L500.4050, L100.0100, L501.6710, L504.2610 ####[facility] [address] [place], [address] Globulin (S) [Mass/Vol] 4.5 g/dL High 2.2-4.2 [facility] Comment on above: Performed By: #### L 3100.3425, L3130.0010, L101.9900, L500.4050, L100.0100, L501.6710, L504.2610 ####[facility] [address] [place], [address] Glucose [Mass/Vol] 131 mg/dL High 74-106 [facility] Comment on above: Result Comment: Fast ing Glucose result greater than or equal to 126 mg/dL suggests DIABETES MELLITUS per A.D.A. criteria. Performed By: #### L 3100.3425, L3130.0010, L101.9900, L500.4050, L100.0100, L501.6710, L504.2610 ####[facility] [address] [place], [address] Potassium [Moles/Vol] 3.8 mmol/L Normal 3.5-5.1 [facility] Comment on above: Performed By: #### L 3100.3425, L3130.0010, L101.9900, L500.4050, L100.0100, L501.6710, L504.2610 ####[facility] [address] [place], [address] Sodium [Moles/Vol] 127 mmol/L Low 136-145 [facility] Comment on above: Performed By: #### L 3100.3425, L3130.0010, L101.9900, L500.4050, L100.0100, L501.6710, L504.2610 ####[facility] [address] [place], [address] T PROT 8.0 g/dL Normal 6.4-8.2 [facility] Comment on above: Performed By: #### L 3100.3425, L3130.0010, L101.9900, L500.4050, L100.0100, L501.6710, L504.2610 ####[facility] [address] [place], [address] Urea nitrogen [Mass/Vol] 16 mg/dL Normal 7-18 [facility] Comment on above: Performed By: #### L 3100.3425, L3130.0010, L101.9900, L500.4050, L100.0100, L501.6710, L504.2610 ####[facility] [address] [place], [place], [address] Erythrocyte Sed Rateon 11-11 SED RATE 26 mm/hr High 0-20 [facility] Comment on above: Performed By: #### L 3100.3425, L3130.0010, L101.9900, L500.4050, L100.0100, L501.6710, L504.2610 ####[facility] [address] [place], [place], [address] LDHon 11-11-2024 LDH 263 U/L High 87-241 [facility] Comment on above: Order Comment: 1 Performed By: #### L 3100.3425, L3130.0010, L101.9900, L500.4050, L100.0100, L501.6710, L504.2610 ####[facility] [address] [place], [place], [address] Orthopedic Visit Reporton Orthopedic Visit Report [facility] [address] [place] [address] 5 [place], [place] [address] OFFICE VISIT Date of Service: 08/27/24 MR#: [id number] Acct: [id number] Name: FELI CASTILLO Rep #: [id number] : 1945 Provider: Dr. Curtis mcclure DO Age/Sex: 79/M Location: [facility] Status: Signed Intake Vital Signs 03/01/24 14:00 07/29/24 10:26 Height 5 ft 8 in 5 ft 8 in Intake Visit Reasons: RIGHT KNEE Accompanied by: Self Allergies carbamazepine Allergy (Severe, Verified 07/30/24 10:06) disorientation and elevated anxiety,fluid retention codeine Adverse Reaction (Severe, Verified 07/30/24 10:06) Vomiting guaifenesin (From Cheratussin AC) Adverse Reaction (Verified 07/30/24 10:06) Vomiting Have you fallen in the past year?: No PFSH Medical History Hyponatremia Epilepsy Wears glasses Prostate disease Low iron High cholesterol History of vertigo Former smoker History of stress test Hx of echocardiogram History of pacemaker Cardiology follow-up encounter History of atrial fibrillation Benign essential tremor Carotid artery disease Sick sinus syndrome Paroxysmal atrial flutter Ocular hypertension MGUS (monoclonal gammopathy of unknown significance) GERD (gastroesophageal reflux disease) Seizures Hyperlipidemia Cardiac pacemaker in situ ( 2006) Surgical History Hx of colonoscopy History of detached retina repair History of cataract surgery History of arthroscopy of right knee Family History Mother CVA (cerebral vascular accident) Diabetes Father Hypertension Social History Smoking Status: Former smoker Tobacco: How many years used: 4 how long ago did patient quit smokin second hand exposure: No alcohol intake: never substance use type: does not use what type of physical activity do you participate in: none ling/catholic: Scientologist seatbelt use: always HPI RIGHT KNEE Details: This documentation accurately reflects the service provided and the decisions made by me, Dr. Curtis Francis, DO 08/27/24 0756. Part of today???s visit was documented by [ ], acting as scribe. FELI CASTILLO is a 79 year old M here today for Right knee. Patient would like another steroid injection. Patient had a steroid injection in 05/28/2024. Patient states he thinks that injection did help him. Patient has been wearing his brace consent due to skin irritation but he states he is getting around ok. Patient is putting cream on the irritation and once that it goes away he does use the brace. Ortho Exam General General: Yes no acute distress Neurologic: Yes alert and Yes oriented x3 Psychologic: Yes reasonable and appropriate Right Knee Skin/Wound: No erythema, No ecchymosis and No swelling Homans Sign: No Knee ROM: No ROM-Extension -20 to 0 (lacking 3) and No ROM-Flexion 0-140 (120) Examination: No Med jt line tenderness, No Lat jt line tenderness and No Crepitus Stability: NML: Anterior Drawer, NML: Posterior Drawer and NML: Valgus 30 and 1+: Varus 30 Patella Grind: No KNEE: no joint effusion fixed varus deformity Supplemental Info 10/27/2023 x-ray right hip: No acute findings noted 09/29/2023 x-ray right hip: Degenerative osteoarthritic change of sacroiliac joint spur formation of the acetabulum questionable lucencies projecting over the right iliac may be artifact however radiologist is recommending follow-up with bone scan. 03/25/2022 x-ray right knee: Advanced medial compartment arthrosis with varus deformity moderate to severe patellofemoral arthrosis Coding Level of Care Code Off vis,est,level 3 Diagnoses Primary osteoarthritis of right knee M17.11 Osteoarthritis type: primary Assessment and Plan Assessment and Plan (1) Right knee DJD: Status: Acute Qualifiers: Osteoarthritis type: primary Qualified Code(s): M17.11 - Unilateral primary osteoarthritis, right knee Plan Patient is here requesting steroid injection. This was given today. He is going to start physical therapy on his back. Clinical Quality Measures Falls Risk Screening/Assistive Devices Have you fallen in the past year?: No 08/27/24 1059 Date Curtis Dee Signature: Date (if applicable) CC: Normal [facility] Pacemaker Checkon 08-11-2024 Pacemaker Check [facility] [address] [place], [place] [address] Pacemaker Check Date of Service: 08/11/24 1719 MR#: [id number] Acct: [id number] Name: FELI CASTILLO Rep #: [id number] : 1945 From: Mary Paredes Age/Sex: 79/M Location: [facility] Status: Signed Billing Codes PM Device Codes: 48319 PM Dev Prog Eval, Dual Assessment and Plan Assessment and Plan (1) Cardiac pacemaker in situ: Status: Chronic Comment: Pacemaker generator change out 06/28/16 (2) Sick sinus syndrome: Status: Chronic (3) Paroxysmal atrial flutter: Status: Chronic 08/11/24 1720 Date Mary Raber Cosigner Signature: Date (if applicable) CC: Normal [facility] Inital Evaluation (1) - PTon 08-10-2024 Inital Evaluation (1) - PT [facility] Physical Therapy [address] [place] [address] / REHABILITATION SERVICES INITIAL EVALUATION MR#: [id number] Acct: [id number] Name: FELI CASTILLO Rep #: [id number] : 1945 79 From: Casper Dwyer DPT, OCS, CSCS Referring DrEliane: LEONELA Woods Status: REG RCR Insurance: MEDICARE AARP Patient's Visit Information Visit Information Visit Information: FELI CASTILLO is a 79 year old M referred to Physical Therapy by LEONELA Woods with a diagnosis of DDD. Date of Evaluation: 08/10/24 Physical Therapist: Casper Dwyer, DPT, OCS, CSCS Visit Plan Frequency: 1x/Week Duration: 2-4 Weeks Plan: weekly x2-4(pt desires minimal) to ensure life back to normal and teach core and LE strength to tolerance if desired. Will f/u next week. IE: trunk rotation supine, pelvic tilt, SKC all 10x 2x/day, also benefits of walker usage and sleeping position with knees bent. Subjective Subjective: R knee is degenerated and painful and his main limitikng factor. Gets cortisone adn nothing else can be done. Here to talk about something else. LBP. Had x rays which showed scoliosis in neck which he had since teenager as well as lower in spine. Also has DDD in lumbar. Sleeps in lazy boy with power control and may have slept wrong with legs too high. Woke up one morning with intense 10/10 pain on r sideto L side of LB. That was 2 weeks ago and took all morning to work out. bad for a couple days. Wiping down tub after shower requires care to lean forward as his back gets really tight. Bending forward to get trash bags bothers him in the LB. Sitting feels better. may help. Back was relatively fine prior to two weeks ago. bad R knee forces stooping sometimes which made back ache a little bit. Sleep is not interrupted. Has sleep apnea and uses meltonin and timazepam. Uses catheter overnight. Retired. Normal activities: can do them all , avoids vaccuuming but has for a while. has bundler seasonal greenery. Hurts to stretch and reach up. bending can also make it worse. Live alone one story with walkout lower level, no problem on steps with two handrails. Spends day reading and watching tv and playing on tablet. No regular exercises. No leg symptoms form back. No pain yesterday and nearly back to normal Pain LBP: Pain Intensity (Out of 10): 0 Pain Intensity Range: 0 and 3 Comment: two days ago with bathtub Objective Objective: Walks in mod I with cane in R UE, hunched over but not painful. Trasnfers slowly with UE I bed and chair. Good balance today with cane. LB AROM ext max limited but not painful, flexion min limited, no pain, SB mod limited no pain, has some stretching with extension. LE AROM hip ext 0, abd 17, flexion 100, no pain - SLR, - SLump. knee and ankle aROM WFL, R side painful slightly at knee reflexes 1/3 patella adn achilles sensation LE WNL to gross light touch. strength hips abd and ext 3+, flexion 3+, knee flex/ext 4-, R ext pain. ankles 4 without pain. Good ankle coordination today. Balance/Special Test Scores Oswestry Low Back Score: 10 Goals Goal 1:: Life back to normal for 5 straight days Goal Time Frame: 2-4 Weeks Goal 2:: Pt pain in LKB 100% better and 1/10 at worst. Goal Time Frame: 2-4 Weeks Rehabilitation Potential Physical Therapy Diagnosis: LNP limiting comfortable function Rehabilitation Potential: Fair Anticipated Interventions Patient/Client Instruction: Educate patient on: Condition and Plan of Care For the Purpose of:: To decrease pain and To improve muscle performance and motor function Therapeutic Exercise to Include: Strength training, Flexibilty training, Passive ROM and Active ROM For the Purpose of:: To decrease pain, To increase ROM, To improve nutrient delivery to tissue and To increase tolerance to activity/condition/positi on Text: Thank you for the opportunity to evaluate your patient. For Medicare and Medicare HMO plans, please review the plan of care and approve it. It will need to be FAXED BACK to us at [phone] for Medicare purposes. For Medicare only, by signing this I certify the plan of care. Please let me know if there are questions or concerns regarding this plan of care. Physician Signature: Date: _ 08/10/24 1056 CC: LEONELA Woods; Dr. Socrates Kumar DO EBG Signed Normal [facility] L/S Spine Min 4 Views 07-13 L/S Spine Min 4 Views [facility] [address] [place] [address] L/S Spine Min 4 Views MR#: [id number] Acct: [id number] Name: FELI CASTILLO Rep #: [id number] : 1945 M 79 From: Praveena abad MD PCP: Dr. Socrates Kumar DO Status: DEP AMB Study: L/S Spine Min 4 Views Date of Exam: 07/30/24 Exam# [id number] Ordering Dr: Alla Burks [id number] HISTORY: Low back pain -- Please do upright AP, LAT, flex/extension. TECHNIQUE: XR Spine Lumbar Min 4 Views. COMPARISON: None. FINDINGS: VERTEBRAE: Vertebral body heights preserved. Degenerative osteophytes at multiple levels. Degenerative changes of the posterior elements. ALIGNMENT: 4 mm retrolisthesis of L2-3 and 2 mm anterolisthesis of L4-5 in neutral position with mild reduction on flexion and extension. Mild levoscoliosis. INTERVERTEBRAL DISCS: Intervertebral disc space narrowing with endplate changes of L3-4, L4-5, and L5-S1. SOFT TISSUES: Cardiac pacemaker leads present. Moderate stool throughout the colon. RAD/L/S Spine Min 4 Views IMPRESSION: No acute fracture or dislocation identified in the lumbar spine. Mild retrolisthesis of L2-3 and mild anterolisthesis of L4-5 as above. Multilevel degenerative change. Mild scoliosis. Electronically Signed: Praveena Freeman MD at 10:19 EDT , CC: LEONELA Woods; Dr. Socrates Kumar DO Java Analyst: Signed Normal [facility] Orthopedic Visit Reporton Orthopedic Visit Report [facility] [address] [place] [address] [address] [place] [address] OFFICE VISIT Date of Service: 07/30/24 MR#: [id number] Acct: [id number] Name: FELI CASTILLO Rep #: [id number] : 1945 Provider: LEONELA Wodos Age/Sex: 79/M Location: [facility] Status: Signed Intake Vital Signs 07/20/24 09:45 07/29/24 10:26 Height 5 ft 8 in 5 ft 8 in Weight: 146 lb 146 lb BMI 22.1 22.1 BP 142/68 H 151/79 H Blood Pressure Location Lt brachial Lt brachial Position Sitting Sitting Respiration 16 16 Pulse 82 70 Pulse Source Monitor Monitor Temp 97.7 F L Temp Source Temporal Pulse Oximetry (%) 98 98 Oxygen Delivery Method room air room air Intake Visit Reasons: LUMBAR SPINE Chief Complaint: lumbar spine Is patient in pain?: Yes (low back ) Pain scale (1-10): 3 Allergies carbamazepine Allergy (Severe, Verified 07/30/24 10:06) disorientation and elevated anxiety,fluid retention codeine Adverse Reaction (Severe, Verified 07/30/24 10:06) Vomiting guaifenesin (From Cheratussin AC) Adverse Reaction (Verified 07/30/24 10:06) Vomiting Medications ???Medication ???Instructions ???Recorded ???Confirmed ???Type Lactobacillus acidophilus 500 1 ea PO DAILY 06/27/16 07/30/24 History million cell-fructooligosac 50 mg tablet cholecalciferol (vitamin D3) 25 1,000 unit PO DAILY 06/27/16 07/30/24 History mcg (1,000 unit) tablet loratadine 10 mg tablet 10 mg PO PRN PRN Allergies 06/27/16 07/30/24 History iqgnuugg-jzu-WY 200 mcg-vit K 15 1 ea PO DAILY 06/27/16 07/30/24 History mcg-lycope 150 hrr-rtwdhc-fpwv tablet multivitamin with folic acid 400 1 tab PO DAILY 06/27/16 07/30/24 History mcg tablet omeprazole 20 mg capsule,delayed 20 mg PO DAILY 06/27/16 07/30/24 History release pravastatin 40 mg tablet 40 mg PO DAILY 06/27/16 07/30/24 History temazepam 30 mg capsule 30 mg PO QHS 06/27/16 07/30/24 History ascorbic acid (vitamin C) 1,000 mg 1 g PO QDAY 12/12/17 07/30/24 History tablet timolol 0.5 % eye drops 1 drp RIGHT EYE BID 02/14/20 07/30/24 History latanoprost 0.005 % eye drops 1 drp EACH EYE DAILY 04/11/21 07/30/24 History omega 8-ppi-nke-fish oil 1,200 mg 1 cap PO TID 04/11/21 07/30/24 History (144 mg-216 mg) capsule (Fish Oil) bethanechol chloride 5 mg tablet 5 mg PO TID 09/13/21 07/30/24 History miscellaneous medical supply 1 ea miscellaneous .PRN 01/03/23 07/30/24 Rx osteoarthritis of right knee 12 months #1 ea lisinopril 5 mg tablet 5 mg PO DAILY 06/04/23 07/30/24 History aspirin 325 mg tablet,delayed 325 mg PO DAILY 12/22/23 07/30/24 History release lamotrigine 100 mg tablet 50 mg (1/2 x 100 mg) PO BID #90 07/20/24 07/30/24 Rx tabs levetiracetam 750 mg tablet 750 mg PO BID #180 tabs 07/20/24 07/30/24 Rx Have you fallen in the past year?: No PFSH Medical History Hyponatremia Epilepsy Wears glasses Prostate disease Low iron High cholesterol History of vertigo Former smoker History of stress test Hx of echocardiogram History of pacemaker Cardiology follow-up encounter History of atrial fibrillation Benign essential tremor Carotid artery disease Sick sinus syndrome Paroxysmal atrial flutter Ocular hypertension MGUS (monoclonal gammopathy of unknown significance) GERD (gastroesophageal reflux disease) Seizures Hyperlipidemia Cardiac pacemaker in situ ( 2006) Surgical History Hx of colonoscopy History of detached retina repair History of cataract surgery History of arthroscopy of right knee Family History Mother CVA (cerebral vascular accident) Diabetes Father Hypertension Social History Smoking Status: Former smoker Tobacco: How many years used: 4 how long ago did patient quit smokin second hand exposure: No alcohol intake: never substance use type: does not use what type of physical activity do you participate in: none ling/catholic: Scientologist seatbelt use: always HPI LUMBAR SPINE Chief Complaint: lumbar spine Details: This documentation accurately reflects the service provided and the decisions made by me, LEONELA Woods 07/30/24 0957. Part of today???s visit was documented by [ ], acting as scribe. FELI CASTILLO is a 79 year old M here today for lumbar spine pain. Pt. presents using a cane for ambulation, he advises he sleeps in a lazy boy and had an episode a week ago as he was getting up of intense sharp low back pains shooting across bilaterally in his low back area. He states it worsens with bending or reaching. He has been treating pain with a heating pad and (more content not included)... Normal [facility] Cardiology Visit Reporton Cardiology Visit Report [facility] [address] [facility] [place] [address] OFFICE VISIT Date of Service: 07/29/24 MR#: [id number] Acct: [id number] Name: FELI CASTILLO Rep #: [id number] : 1945 Provider: Dr. Azeem Dumont MD Age/Sex: 79/M Location: [facility] Status: Signed HPI HPI History of Present Illness Details: This is a 78-year-old white male who presents today for outpatient cardiovascular follow-up of his history of underlying sick sinus syndrome with paroxysmal atrial fibrillation/flutter, permanent pacemaker, superimposed upon hyperlipidemia and carotid artery disease. He denies chest, arm, jaw, or neck discomfort. He denies palpitations. He denies bilateral lower extremity edema. He denies claudication. He denies shortness of breath with activity, shortness of breath at rest, orthopnea, or PND. He denies chronic cough. He denies significant, sudden weight gain. He denies lightheadedness, dizziness, near-syncope, or syncope. He denies blood in urine, blood in stool, or epistaxis. He denies fever with chills. He denies myalgia. He denies fatigue. His exercise level has remained stable. He states typical blood pressure is systolic 130s and he believes today blood pressure is due to white coat hypertension. Intake Vital Signs 06/27/23 13:31 07/20/24 09:45 07/29/24 10:26 Height 5 ft 8 in 5 ft 8 in 5 ft 8 in Weight: 146 lb BMI 22.1 BP 151/79 H Blood Pressure Location Lt brachial Position Sitting Respiration 16 Pulse 70 Pulse Source Monitor Pulse Oximetry (%) 98 Oxygen Delivery Method room air Intake Visit Reasons: 1 Y FU PREV PFM PT Accompanied by: Self Is patient in pain?: Yes (Low back) Pain scale (1-10): 2 Allergies carbamazepine Allergy (Severe, Verified 07/29/24 10:27) disorientation and elevated anxiety,fluid retention codeine Adverse Reaction (Severe, Verified 07/29/24 10:27) Vomiting guaifenesin (From Cheratussin AC) Adverse Reaction (Verified 07/29/24 10:27) Vomiting Medications ???Medication ???Instructions ???Recorded ???Confirmed ???Type Lactobacillus acidophilus 500 1 ea PO DAILY 06/27/16 07/29/24 History million cell-fructooligosac 50 mg tablet cholecalciferol (vitamin D3) 25 1,000 unit PO DAILY 06/27/16 07/29/24 History mcg (1,000 unit) tablet loratadine 10 mg tablet 10 mg PO PRN PRN Allergies 06/27/16 07/29/24 History nletopnp-hoc-ZV 200 mcg-vit K 15 1 ea PO DAILY 06/27/16 07/29/24 History mcg-lycope 150 gbp-npnecg-feoc tablet multivitamin with folic acid 400 1 tab PO DAILY 06/27/16 07/29/24 History mcg tablet omeprazole 20 mg capsule,delayed 20 mg PO DAILY 06/27/16 07/29/24 History release pravastatin 40 mg tablet 40 mg PO DAILY 06/27/16 07/29/24 History temazepam 30 mg capsule 30 mg PO QHS 06/27/16 07/29/24 History ascorbic acid (vitamin C) 1,000 mg 1 g PO QDAY 12/12/17 07/29/24 History tablet timolol 0.5 % eye drops 1 drp RIGHT EYE BID 02/14/20 07/29/24 History latanoprost 0.005 % eye drops 1 drp EACH EYE DAILY 04/11/21 07/29/24 History omega 1-igu-egd-fish oil 1,200 mg 1 cap PO TID 04/11/21 07/29/24 History (144 mg-216 mg) capsule (Fish Oil) bethanechol chloride 5 mg tablet 5 mg PO TID 09/13/21 07/29/24 History miscellaneous medical supply 1 ea miscellaneous .PRN 01/03/23 07/29/24 Rx osteoarthritis of right knee 12 months #1 ea lisinopril 5 mg tablet 5 mg PO DAILY 06/04/23 07/29/24 History aspirin 325 mg tablet,delayed 325 mg PO DAILY 12/22/23 07/29/24 History release lamotrigine 100 mg tablet 50 mg (1/2 x 100 mg) PO BID #90 07/20/24 07/29/24 Rx tabs levetiracetam 750 mg tablet 750 mg PO BID #180 tabs 07/20/24 07/29/24 Rx Ejection fraction %: 55 Have you fallen in the past year?: No PFSH Medical History Hyponatremia Epilepsy Wears glasses Prostate disease Low iron High cholesterol History of vertigo Former smoker History of stress test Hx of echocardiogram History of pacemaker Cardiology follow-up encounter History of atrial fibrillation Benign essential tremor Carotid artery disease Sick sinus syndrome Paroxysmal atrial flutter Ocular hypertension MGUS (monoclonal gammopathy of unknown significance) GERD (gastroesophageal reflux disease) Seizures Hyperlipidemia Cardiac pacemaker in situ ( 2006) Surgical History Hx of colonoscopy History of detached retina repair History of cataract surgery History of arthroscopy of right knee Family History Mother CVA (cerebral vascular accident) Diabetes Father Hypertension Social History Smoking (more content not included)... Normal [facility] KEPPRA (LEVETIRACETAM)on KEPPRA 46.4 ug/mL Abnormal 10.0-40.0 [facility] Comment on above: Performed By: #### L 3300.4400, L500.4050, L503.5510, L100.0500, L3310.0000 ####[facility] [address] [place], [place], [id number] Lamotrigine (Lamictal) Level on 07-23-2024 LAMOTRIGINE 4.4 ug/mL Normal 2.0-20.0 [facility] Comment on above: Result Comment: Dete ction Limit = 1.0 Performed at: [address] [id number] Pharmacy Affairs Assistant: Cristiana Tavera MD, Phone: [phone] Performed By: #### L 3300.4400, L500.4050, L503.5510, L100.0500, L3310.0000 ####[facility] [address] [place], [place], [id number] Ammoniaon 07-20-2024 Ammonia (P) [Moles/Vol] 19.0 umol/L Normal 11-32 [facility] Comment on above: Performed By: #### L 3300.4400, L500.4050, L503.5510, L100.0500, L3310.0000 ####[facility] [address] [place], [place], [id number] CBC-Complete Blood Cnt No Di ffon 07-20-2024 Erythrocyte distribution width (RBC) [Ratio] 12.1 % Normal 11.6-14.6 [facility] Comment on above: Performed By: #### L 3300.4400, L500.4050, L503.5510, L100.0500, L3310.0000 ####[facility] [address] [place], [place], [id number] Hematocrit (Bld) [Volume fraction] 37.1 % Low 40-54 [facility] Comment on above: Performed By: #### L 3300.4400, L500.4050, L503.5510, L100.0500, L3310.0000 ####[facility] [address] [place], [address] Hemoglobin (Bld) [Mass/Vol] 12.5 g/dL Low 13.0-16.5 [facility] Comment on above: Performed By: #### L 3300.4400, L500.4050, L503.5510, L100.0500, L3310.0000 ####[facility] [address] [place], [address] MCH (RBC) [Entitic mass] 30.8 pg Normal 27.0-32.0 [facility] Comment on above: Performed By: #### L 3300.4400, L500.4050, L503.5510, L100.0500, L3310.0000 ####[facility] [address] [place], [address] MCHC (RBC) [Mass/Vol] 33.7 g/dL Normal 32-36 [facility] Comment on above: Performed By: #### L 3300.4400, L500.4050, L503.5510, L100.0500, L3310.0000 ####[facility] [address] [place], [address] MCV (RBC) [Entitic vol] 91.4 fL Normal 80-94 [facility] Comment on above: Performed By: #### L 3300.4400, L500.4050, L503.5510, L100.0500, L3310.0000 ####[facility] [address] [place], [address] Platelet mean volume (Bld) [Entitic vol] 9.6 fL Normal 6.2-12.0 [facility] Comment on above: Performed By: #### L 3300.4400, L500.4050, L503.5510, L100.0500, L3310.0000 ####[facility] [address] [place], [address] Platelets (Bld) [#/Vol] 267 10*3/uL Normal 150-450 [facility] Comment on above: Performed By: #### L 3300.4400, L500.4050, L503.5510, L100.0500, L3310.0000 ####[facility] [address] [place], [address] RBC (Bld) [#/Vol] 4.06 10*6/uL Low 4.6-6.2 [facility] Comment on above: Performed By: #### L 3300.4400, L500.4050, L503.5510, L100.0500, L3310.0000 ####[facility] [address] [place], [address] RDW SD 40.5 fl Normal 35.1-43.9 [facility] Comment on above: Performed By: #### L 3300.4400, L500.4050, L503.5510, L100.0500, L3310.0000 ####[facility] [address] [place], [address] WBC (Bld) [#/Vol] 9.1 10*3/uL Normal 4.4-11.0 [facility] Comment on above: Performed By: #### L 3300.4400, L500.4050, L503.5510, L100.0500, L3310.0000 ####[facility] [address] [place], [address] Comprehensive Metabolic Prof ilon 07-20-2024 Albumin [Mass/Vol] 3.2 g/dL Normal 3.2-5.0 [facility] Comment on above: Performed By: #### L 3300.4400, L500.4050, L503.5510, L100.0500, L3310.0000 ####[facility] [address] [place], [address] Albumin/Globulin [Mass ratio] 0.8 {ratio} Low 0.9-2.4 [facility] Comment on above: Performed By: #### L 3300.4400, L500.4050, L503.5510, L100.0500, L3310.0000 ####[facility] [address] [place], [address] ALK P 129 U/L High 45-117 [facility] Comment on above: Performed By: #### L 3300.4400, L500.4050, L503.5510, L100.0500, L3310.0000 ####[facility] [address] [place], [address] ALT [Catalytic activity/Vol] 16 U/L Normal 16-61 [facility] Comment on above: Performed By: #### L 3300.4400, L500.4050, L503.5510, L100.0500, L3310.0000 ####[facility] [address] [place], [address] AST [Catalytic activity/Vol] 23 U/L Normal 15-37 [facility] Comment on above: Performed By: #### L 3300.4400, L500.4050, L503.5510, L100.0500, L3310.0000 ####[facility] [address] [place], [address] Bilirubin [Mass/Vol] 0.50 mg/dL Normal 0.20-1.00 [facility] Comment on above: Result Comment: For patients on eltrombopag therapy, use of Dimension [place] TBIL is not recommended. Performed By: #### L 3300.4400, L500.4050, L503.5510, L100.0500, L3310.0000 ####[facility] [address] [place], [address] BUN/CRE 13.7 RATIO Normal 10-20 [facility] Comment on above: Performed By: #### L 3300.4400, L500.4050, L503.5510, L100.0500, L3310.0000 ####[facility] [address] [place], [address] CA,Total 9.2 mg/dL Normal 8.5-10.1 [facility] Comment on above: Performed By: #### L 3300.4400, L500.4050, L503.5510, L100.0500, L3310.0000 ####[facility] [address] [place], [address] Chloride [Moles/Vol] 94 mmol/L Low 98-107 [facility] Comment on above: Performed By: #### L 3300.4400, L500.4050, L503.5510, L100.0500, L3310.0000 ####[facility] [address] [place], [address] CO2 [Moles/Vol] 23.0 mmol/L Normal 21.0-32.0 [facility] Comment on above: Performed By: #### L 3300.4400, L500.4050, L503.5510, L100.0500, L3310.0000 ####[facility] [address] [place], [address] Creatinine [Mass/Vol] 1.17 mg/dL Normal 0.70-1.30 [facility] Comment on above: Result Comment: The validity of the calculated GFR GFRAA in patients over 70 years has not been determined. Clinical correlation is essential. Performed By: #### L 3300.4400, L500.4050, L503.5510, L100.0500, L3310.0000 ####[facility] [address] [place], [address] EST GFR - AA 77 mL/min Normal >60 [facility] Comment on above: Result Comment: Afri can Eritrean GFR Calc Performed By: #### L 3300.4400, L500.4050, L503.5510, L100.0500, L3310.0000 ####[facility] [address] [place], [address] GAP 9 Normal 5-15 [facility] Comment on above: Performed By: #### L 3300.4400, L500.4050, L503.5510, L100.0500, L3310.0000 ####[facility] [address] [place], [address] GFR/1.73 sq M.predicted among non-blacks MDRD (S/P/Bld) [Vol rate/Area] 64 mL/min/{1.73_m2} Normal >60 [facility] Comment on above: Result Comment: Non- GFR Calc Performed By: #### L 3300.4400, L500.4050, L503.5510, L100.0500, L3310.0000 ####[facility] [address] [place], [address] Globulin (S) [Mass/Vol] 4.1 g/dL Normal 2.2-4.2 [facility] Comment on above: Performed By: #### L 3300.4400, L500.4050, L503.5510, L100.0500, L3310.0000 ####[facility] [address] [place], [address] Glucose [Mass/Vol] 120 mg/dL High 74-106 [facility] Comment on above: Result Comment: Fast ing Glucose result from 100 to 125 mg/dL suggests IMPAIRED HOMEOSTASIS per A.D.A. criteria. Performed By: #### L 3300.4400, L500.4050, L503.5510, L100.0500, L3310.0000 ####[facility] [address] [place], [address] Potassium [Moles/Vol] 4.0 mmol/L Normal 3.5-5.1 [facility] Comment on above: Performed By: #### L 3300.4400, L500.4050, L503.5510, L100.0500, L3310.0000 ####[facility] [address] [place], [address] Sodium [Moles/Vol] 125 mmol/L Low 136-145 [facility] Comment on above: Performed By: #### L 3300.4400, L500.4050, L503.5510, L100.0500, L3310.0000 ####[facility] [address] [place], [address] T PROT 7.3 g/dL Normal 6.4-8.2 [facility] Comment on above: Performed By: #### L 3300.4400, L500.4050, L503.5510, L100.0500, L3310.0000 ####[facility] [address] [place], [address] Urea nitrogen [Mass/Vol] 16 mg/dL Normal 7-18 [facility] Comment on above: Performed By: #### L 3300.4400, L500.4050, L503.5510, L100.0500, L3310.0000 ####[facility] [address] [place], [address] Neurology Visit Reporton Neurology Visit Report [facility] [address], [address] [place], [place] [address] OFFICE VISIT Date of Service: 07/20/24 MR#: [id number] Acct: [id number] Name: FELI CASTILLO Rep #: [id number] : 1945 Provider: Dr. Pool cisneros MD Age/Sex: 79/M Location: [facility] Status: Signed HPI HPI Details: Interim History: Feli returns for follow-up visit. He has a history of hyperlipidemia, impaired glucose tolerance, ocular hypertension, atrial flutter and sick sinus syndrome status post pacemaker placement in 2006 with revision in 2015, monoclonal gammopathy of unknown significance, and epilepsy. His seizures began around 2005. He had an episode of loss of consciousness/unresponsiv eness that was witnessed by his that was followed by postictal confusion. He did not have tongue biting or urinary incontinence. It is unclear whether he had any clonic or tonic motor activity at that time. He did not experience a preceding aura. Over the following year, he had further episodes of loss of consciousness similar to that described above. He was initially treated with carbamazepine however this caused anxiety and disorientation and was discontinued. He was subsequently placed on levetiracetam however he continued to have some breakthrough seizures. He experienced seizure auras of feeling vaguely unwell that would occur in isolation and would be triggered by incidents such as driving and looking at passing fence posts. Lamotrigine was then added and he has not had any seizures or seizure auras since around 2006. He was evaluated in the past with a head CT (due to his cardiac pacemaker he was unable to have a head MRI) and no cause for his seizures was identified. He reported that a prior EEG revealed no abnormality (official report is presently not available). A subsequent EEG (June 2021) was normal. There is no history of MANAGER APPLE infection, concussion or premature . He is tolerating levetiracetam and lamotrigine well. The option of tapering off of his anticonvulsant medications was discussed in the past and he decided to continue these medications. He has had a slight fine tremor in the hands that is worsened when he is anxious or tired. The tremor is not causing significant functional impairment. He sees an oncologist regarding a monoclonal gammopathy of unknown significance and this is being followed. He has had right knee injections for degenerative joint disease of the knee. Physical Exam: Neuro: The patient is awake and alert and responds appropriately; speech is fluent; no tremor is noted in the hands at rest or when arms are extended; no rigidity is noted in the wrists Neck: No bruits Heart: Regular rate and rhythm Supplemental Info Head CT (09/18/2016): FINDINGS: Normal soft tissue structures. There is a 1.3 cm x 0.8 cm lytic lesion involving the middle table of the left occipital bone. This corresponds to the radiographic findings. There is mild cerebral atrophy with widening of the extra-axial spaces and ventricular dilatation. There are areas of decreased attenuation within the white matter tracts of the supratentorial brain, consistent with microvascular disease changes. Normal basal ganglia and thalami. Normal brainstem. Normal cerebellum. There is no intracranial hemorrhage. There are no findings of an acute ischemic infarction. There is calcification of the vertebral arteries as well as the cavernous portions of the internal carotid arteries bilaterally. Normal visualized paranasal sinuses. IMPRESSION: There is a 1.3 cm x 0.8 cm lytic lesion involving the middle table of the left occipital bone. These images were reviewed on 06/14/2021. Moderate diffuse cerebral atrophy is noted. TSH (03/02/2018): Normal. 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 CBC, CMP (09/17/21): hemoglobin 11.9, hematocrit 34, sodium 132, glucose 131, alkaline phosphatase 133 Ammonia (01/08/2022): Normal. 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 Normal [facility] Basophil percentageOrdered B y: Pool White on 12-05-2023 Sodium [Moles/Vol] 129 mmol/L 136-145 [facility] Absolute lymphocyte countOrd ered By: Curtis Ross on 11-05-2023 Lymphocytes Auto (Unsp spec) [#/Vol] 1.99 10*3/uL 0.83-4.51 [facility] Albumin Elph [Mass/Vol]Order ed By: Curtis Fernandezjordan on 11-05-2023 Albumin [Mass/Vol] 3.5 g/dL 2.9-4.4 [facility] Automated lymphocyte count a s percentage of total leukocytesOrdered By: Curtis Fernandezjordan on 11-05-2023 Lymphocytes/100 WBC Auto (Unsp spec) 19.9 % 19-41 [facility] Basophil percentageOrdered B y: Curtis Fernandezjordan on 11-05-2023 Basophils/100 WBC (Bld) 1.0 % 0-1 [facility] Bilirubin [Mass/Vol] 0.50 mg/dL 0.20-1.00 [facility] Comment on above: For patients on eltr ombopag therapy, use of Dimension [place] TBIL is not recommended. Chloride [Moles/Vol] 96 mmol/L 98-107 [facility] Eosinophils/100 WBC (Bld) 5.6 % 0-5 [facility] Glucose [Mass/Vol] 139 mg/dL 74-106 [facility] Comment on above: Fasting Glucose resu lt greater than or equal to 126 mg/dL suggests DIABETES MELLITUS per A.D.A. criteria. Hemoglobin (Bld) [Mass/Vol] 11.9 g/dL 13.0-16.5 [facility] LDH [Catalytic activity/Vol] 255 U/L 87-241 [facility] Monocytes/100 WBC (Bld) 6.7 % 0-10 [facility] Neutrophils (Bld) [#/Vol] 6.6 10*3/uL 2.0-7.7 [facility] Neutrophils/100 WBC (Bld) 66.4 % 47-70 [facility] Potassium [Moles/Vol] 4.0 mmol/L 3.5-5.1 [facility] Protein [Mass/Vol] 7.4 g/dL 6.4-8.2 [facility] Sodium [Moles/Vol] 127 mmol/L 136-145 [facility] WBC (Bld) [#/Vol] 10.0 10*3/uL 4.4-11.0 [facility] Determination of erythrocyte mean corpuscular volume (MCV)Ordered By: Curtis Ross on 11-05-2023 MCV (RBC) [Entitic vol] 92.3 fL 80-94 [facility] Erythrocyte distribution wid th ratioOrdered By: Curtis Ross on 11-05-2023 Erythrocyte distribution width (RBC) [Ratio] 12.7 % 11.6-14.6 [facility] Erythrocyte distribution wid th standard deviationOrdered By: Curtis Ross on 11-05-2023 Erythrocyte distribution width (RBC) [Entitic vol] 42.9 fL 35.1-43.9 [facility] Erythrocyte sedimentation ra teOrdered By: Curtis Ross on 11-05-2023 ESR (Bld) [Velocity] 14 mm/h 0-20 [facility] Hematocrit Auto (Bld) [Volum e fraction]Ordered By: Curtis Ross on 11-05-2023 Hematocrit (Bld) [Volume fraction] 36.1 % 40-54 [facility] Immature granulocytes/100 WB C Auto (Bld)Ordered By: Curtis Ross on 11-05-2023 Immature granulocytes/100 WBC (Bld) 0.400 % 0.0-0.9 [facility] Comment on above: IG% - Immature Granu locytes (promyelocytes, myelocytes and metamyelocytes) > 1% indicates that a LEFT SHIFT is Present. Interpretation of serum or p lasma protein pattern by immunofixation (narrative resultOrdered By: Curtis Ross on 11-05-2023 Protein Fractions Immunofixation Dev [Interp] 0.5 g/dL Not Observed [facility] Laboratory - Chemistry and C hemistry - challengeOrdered By: Curtis Ross on 11-05-2023 Albumin/Globulin [Mass ratio] 0.8 {ratio} 0.9-2.4 [facility] ALP [Catalytic activity/Vol] 140 U/L 45-117 [facility] ALT [Catalytic activity/Vol] 16 U/L 16-61 [facility] CO2 [Moles/Vol] 27.0 mmol/L 21.0-32.0 [facility] IgM (U) [Mass/Vol] 40 mg/dL 15-143 [facility] Urea nitrogen/Creatinine [Mass ratio] 15.6 mg/mg 10-20 [facility] Laboratory - Hematology and Cell countsOrdered By: Curtis Ross on 11-05-2023 MCH (RBC) [Entitic mass] 30.4 pg 27.0-32.0 [facility] MCHC (RBC) [Mass/Vol] 33.0 g/dL 32-36 [facility] Nucleated RBC/100 WBC (Bld) [Ratio] 0 % 0-5 [facility] Platelets (Bld) [#/Vol] 252 10*3/uL 150-450 [facility] No Panel InformationOrdered By: Curtis Ross on 11-05-2023 Addendum Document Comment . [facility] Comment on above: Protein electrophore sis scan will follow via computer,mail, or chief port director delivery. C-Reactive Protein Extended Range 4.73 mg/L 0.0-3.0 [facility] Comment on above: C-Reactive Protein ( CRP) provides useful information for thediagnosis, therapy and monitoring of inflammatory processesand associated diseases. For the evaluation of Relative Riskfor Cardiovascular Disease, a High Sensitivity CRP (HSCRP)should be ordered. Estimated Creatinine Clearance Calc 45.90 ml/min [facility] Estimated GFR (MDRD) Amer 74 mL/min >60 [facility] Comment on above: GFR Calc Estimated GFR (MDRD) Non-Af Amer 61 mL/min >60 [facility] Comment on above: Non- GFR Calc Free Lambda Light Chains, Quant 17.1 mg/L 5.7-26.3 [facility] Platelet mean volume Murali-Ec ker (Bld) [Entitic vol]Ordered By: Curtis Ross on 11-05-2023 Platelet mean volume (Bld) [Entitic vol] 9.3 fL 6.2-12.0 [facility] RBC Auto (Bld) [#/Vol]Ordere d By: Curtis Ross on 11-05-2023 RBC (Bld) [#/Vol] 3.91 10*6/uL 4.6-6.2 [facility] Serum dmgui-9-gargzdbf measu rement by electrophoresisOrdered By: Curtis Ross on 11-05-2023 Alpha 1 globulin Elph [Mass/Vol] 0.3 g/dL 0.0-0.4 [facility] Alpha 1 globulin Elph [Mass/Vol] 0.9 g/dL 0.4-1.0 [facility] Serum dlnh-3-fvytaulqxloms m easurement (mass/volume)Ordered By: Curtis Ross on 11-05-2023 Fgiq-3-Mqvkhtdhknuxi [Mass/Vol] 2.2 ug/mL 0.6-2.4 [facility] Comment on above: Siemens Immulite 200 0 Immunochemiluminometric assay (ICMA)Values obtained with different assay methods or kits cannotbe used interchangeably. Results cannot be interpreted asabsolute evidence of the presence or absence of malignantdisease.Performed at: [facility] [id number] Director: Cristiana Tavera MD, Phone: [phone] Serum globulin measurement ( mass/volume)Ordered By: Curtis Ross on 11-05-2023 Globulin (S) [Mass/Vol] 3.4 g/dL 2.2-3.9 [facility] Serum immunoglobulin kappa l ight chains/immunoglobulin lambda light chains mass ratioOrdered By: Curtis Ross on 11-05-2023 Immunoglobulin light chains.kappa/Immunoglobu duglas light chains.lambda (S) [Mass ratio] 6.61 0.26-1.65 [facility] Comment on above: Performed at: - [facility] [address] [id number] Director: Damion Garland PhD, Phone: [phone] Serum or plasma IgA measurem ent (mass/volume)Ordered By: Curtis Ross on 11-05-2023 IgA [Mass/Vol] 366 mg/dL 61-437 [facility] Serum or plasma IgG measurem ent (mass/volume)Ordered By: Curtis Ross on 11-05-2023 IgG [Mass/Vol] 1139 mg/dL 603-1613 [facility] Serum or plasma beta globuli n measurement by electrophoresis (mass/volume)Ordered By: Curtis Fernandez on 11-05-2023 Beta globulin Elph [Mass/Vol] 1.2 g/dL 0.7-1.3 [facility] Serum or plasma calcium gurpreet urement (mass/volume)Ordered By: Curtis Fernandez on 11-05-2023 Calcium [Mass/Vol] 9.1 mg/dL 8.5-10.1 [facility] Serum or plasma creatinine m easurement (mass/volume)Ordered By: Curtis Fernandez on 11-05-2023 Creatinine [Mass/Vol] 1.22 mg/dL 0.70-1.30 [facility] Comment on above: The validity of the calculated GFR & GFRAA in patients over 70 years has not been determined. Clinical correlation is essential. Serum or plasma gamma globul in measurement by electrophoresis (mass/volume)Ordered By: Curtis Fernandez on 11-05-2023 Gamma globulin Elph [Mass/Vol] 1.1 g/dL 0.4-1.8 [facility] Serum or plasma immunoelectr ophoresis interpretation (nominal result)Ordered By: Curtis Fernandez on 11-05-2023 Interpretation IEP [Interp] Comment . [facility] Comment on above: Immunofixation shows IgG monoclonal protein with kappalight chain specificity. PLEASE NOTE: Samples from patients receiving DARZALEX(R)(daratumumab) or SARCLISA(R)(isatuximab-[facility]) treatmentcan appear as an IgG kappa and mask a complete response(CR). If this patient is receiving these therapies, thisIFE assay interference can be removed by ordering testnumber [id number], Daratumumab-Specific,Serum or [id number], Isatuximab-Specific,Serum and submitting a new sample for testing or bycalling the lab to add this test to the current sample. Serum or plasma immunoglobul in kappa light chains measurement (mass/volume)Ordered By: Curtis Fernandez on 11-05-2023 Immunoglobulin light chains.kappa [Mass/Vol] 113.1 mg/L 3.3-19.4 [facility] Serum or plasma urea nitroge n measurement (mass/volume)Ordered By: Curtis Fernandez on 11-05-2023 Urea nitrogen [Mass/Vol] 19 mg/dL 7-18 [facility] Thin prep Papanicolaou smear with manual screeningOrdered By: Curtis Cody on 11-05-2023 Thin prep Papanicolaou smear with manual screening 3.3 g/dL 3.2-5.0 [facility] Thin prep Papanicolaou smear with manual screening 27 U/L 15-37 [facility] Thin prep Papanicolaou smear with manual screening 4 5-15 [facility] Thin prep Papanicolaou smear with manual screening 1.1 0.7-1.7 [facility] Total protein bloodOrdered B y: Curtis Ross on 11-05-2023 Protein [Mass/Vol] 6.9 g/dL 6.0-8.5 [facility] Basophil percentageOrdered B y: Pool White on 06-17-2023 Ammonia (P) [Moles/Vol] 18.0 umol/L 11-32 [facility] Chloride [Moles/Vol] 95 mmol/L 98-107 [facility] Glucose [Mass/Vol] 118 mg/dL 74-106 [facility] Comment on above: Fasting Glucose resu lt from 100 to 125 mg/dL suggests IMPAIRED HOMEOSTASIS per A.D.A. criteria. Potassium [Moles/Vol] 4.4 mmol/L 3.5-5.1 [facility] Sodium [Moles/Vol] 128 mmol/L 136-145 [facility] Laboratory - Chemistry and C hemistry - challengeOrdered By: Pool White on 06-17-2023 CO2 [Moles/Vol] 24.0 mmol/L 21.0-32.0 [facility] Urea nitrogen/Creatinine [Mass ratio] 17.1 mg/mg 10-20 [facility] No Panel InformationOrdered By: Pool White on 06-17-2023 Estimated GFR (MDRD) Amer 69 mL/min >60 [facility] Comment on above: GFR Calc Estimated GFR (MDRD) Non-Af Amer 57 mL/min >60 [facility] Comment on above: Non- GFR Calc Levetiracetam (Keppra) Level 27.6 ug/mL 10.0-40.0 [facility] Serum or plasma calcium gurpreet urement (mass/volume)Ordered By: Pool White on 06-17-2023 Calcium [Mass/Vol] 8.8 mg/dL 8.5-10.1 [facility] Serum or plasma creatinine m easurement (mass/volume)Ordered By: Pool White on 06-17-2023 Creatinine [Mass/Vol] 1.29 mg/dL 0.70-1.30 [facility] Comment on above: The validity of the calculated GFR & GFRAA in patients over 70 years has not been determined. Clinical correlation is essential. Serum or plasma lamotrigine measurement (mass/volume)Ordered By: Pool White on 06-17-2023 lamoTRIgine [Mass/Vol] 4.1 ug/mL 2.0-20.0 [facility] Comment on above: Detection Limit = 1. 0Performed at: [facility] [place] [id number] Director: Cristiana Tavera MD, Phone: [phone] Serum or plasma urea nitroge n measurement (mass/volume)Ordered By: Pool White on 06-17-2023 Urea nitrogen [Mass/Vol] 22 mg/dL 7-18 [facility] Thin prep Papanicolaou smear with manual screeningOrdered By: Pool White on 06-17-2023 Thin prep Papanicolaou smear with manual screening 9 5-15 [facility] Basophil percentageOrdered B y: Dr. White on 12-24-2022 Ammonia (P) [Moles/Vol] 12.0 umol/L 11-32 [facility] No Panel InformationOrdered By: Dr. White on 12-24-2022 Levetiracetam (Keppra) Level 33.1 ug/mL 10.0-40.0 [facility] Serum or plasma lamotrigine measurement (mass/volume)Ordered By: Dr. White on 12-24-2022 lamoTRIgine [Mass/Vol] 3.5 ug/mL 2.0-20.0 [facility] Comment on above: Detection Limit = 1. 0Performed at: [facility] [id number] Director: Cristiana Tavera MD, Phone: [phone] Basophil percentageon 2021 Ammonia (P) [Moles/Vol] 15.0 umol/L 11-32 [facility] Work Phone: No Panel Informationon 07-11 Levetiracetam (Keppra) Level 30.1 ug/mL 10.0-40.0 [facility] Work Phone: Serum or plasma lamotrigine measurement (mass/volume)on 07-11-2022 lamoTRIgine [Mass/Vol] 3.1 ug/mL 2.0-20.0 [facility] Work Phone: Comment on above: Detection Limit = 1. 0Performed at: [facility] [address] [id number] Director: Cristiana Tavera MD, Phone: [phone] Absolute lymphocyte counton 02-25-2022 Lymphocytes Auto (Unsp spec) [#/Vol] 1.76 10*3/uL 0.83-4.51 [facility] Work Phone: Albumin Elph [Mass/Vol]on Albumin [Mass/Vol] 3.6 g/dL [facility] Work Phone: Basophil percentageon 2021 Basophils/100 WBC (Bld) 1.0 % 0-1 [facility] Work Phone: Bilirubin [Mass/Vol] 0.40 mg/dL 0.20-1.00 [facility] Work Phone: Comment on above: For patients on eltr ombopag therapy, use of Dimension [place] TBIL is not recommended. Chloride [Moles/Vol] 98 mmol/L 98-107 [facility] Work Phone: Eosinophils/100 WBC (Bld) 6.3 % 0-5 [facility] Work Phone: Glucose [Mass/Vol] 106 mg/dL 74-106 [facility] Work Phone: [phone] Comment on above: Fasting Glucose resu lt from 100 to 125 mg/dL suggests IMPAIRED HOMEOSTASIS per A.D.A. criteria. Neutrophils (Bld) [#/Vol] 5.1 10*3/uL 2.0-7.7 [facility] Work Phone: Neutrophils/100 WBC (Bld) 63.5 % 47-70 [facility] Work Phone: Potassium [Moles/Vol] 4.0 mmol/L 3.5-5.1 [facility] Work Phone: Protein [Mass/Vol] 7.5 g/dL 6.4-8.2 [facility] Work Phone: Sodium [Moles/Vol] 131 mmol/L 136-145 [facility] Work Phone: WBC (Bld) [#/Vol] 8.1 10*3/uL 4.4-11.0 [facility] Work Phone: [phone] Blood erythrocytes count (nu mber/volume)on 02-25-2022 RBC (Bld) [#/Vol] 3.95 10*6/uL 4.6-6.2 [facility] Work Phone: [phone] Blood hemoglobin measurement (mass/volume)on 02-25-2022 Hemoglobin (Bld) [Mass/Vol] 12.1 g/dL 13.0-16.5 [facility] Work Phone: Blood lymphocytes/100 leukoc yteson 02-25-2022 Lymphocytes/100 WBC (Bld) 21.7 % 19-41 [facility] Work Phone: Blood monocytes/100 leukocyt eson 02-25-2022 Monocytes/100 WBC (Bld) 7.0 % 0-10 [facility] Work Phone: Blood platelet mean volumeon 02-25-2022 Platelet mean volume (Bld) [Entitic vol] 9.4 fL 6.2-12.0 [facility] Work Phone: [phone] Determination of erythrocyte mean corpuscular volume (MCV)on 02-25-2022 MCV (RBC) [Entitic vol] 91.4 fL 80-94 [facility] Work Phone: Erythrocyte sedimentation ra ten 02-25-2022 ESR (Bld) [Velocity] 30 mm/h 0-20 [facility] Work Phone: Hematocrit Auto (Bld) [Volum e fraction]on 02-25-2022 Hematocrit (Bld) [Volume fraction] 36.1 % 40-54 [facility] Work Phone: Hemoglobin in reticulocytes (mass per reticulocyte)on 02-25-2022 Hemoglobin (Reticulocytes) [Entitic mass] 34.7 pg 30-35 [facility] Interpretation of serum or p lasma protein pattern by immunofixation (narrative resulton 02-25-2022 Protein Fractions Immunofixation Dev [Interp] 0.7 g/dL Not Observed [facility] Work Phone: Iron measurement (mass/mass) on 02-25-2022 Iron (Unsp spec) [Mass/Mass] 65 ug/dL 65-175 [facility] Laboratory - Chemistry and C hemistry - challengeon 02-25-2022 ALP [Catalytic activity/Vol] 116 U/L 45-117 [facility] Work Phone: ALT [Catalytic activity/Vol] 17 U/L 16-61 [facility] Work Phone: CO2 [Moles/Vol] 26.0 mmol/L 21.0-32.0 [facility] Work Phone: Cobalamin (Vitamin B12) [Mass/Vol] 538 pg/mL 211-911 [facility] Urea nitrogen/Creatinine [Mass ratio] 14.0 mg/mg 10-20 [facility] Work Phone: Laboratory - Hematology and Cell countson 02-25-2022 Erythrocyte distribution width (RBC) [Entitic vol] 41.4 fL 35.1-43.9 [facility] Work Phone: [phone] Erythrocyte distribution width (RBC) [Ratio] 12.5 % 11.6-14.6 [facility] Work Phone: Immature granulocytes/100 WBC (Bld) 0.500 % 0.0-0.9 [facility] Work Phone: Comment on above: IG% - Immature Granu locytes (promyelocytes, myelocytes and metamyelocytes) > 1% indicates that a LEFT SHIFT is Present. MCH (RBC) [Entitic mass] 30.6 pg 27.0-32.0 [facility] Work Phone: Nucleated RBC/100 WBC (Bld) [Ratio] 0 % 0-5 [facility] Work Phone: MCHC Auto (RBC) [Mass/Vol]on 02-25-2022 MCHC (RBC) [Mass/Vol] 33.5 g/dL 32-36 [facility] Work Phone: No Panel Informationon 02-25 Addendum Document Comment [facility] Work Phone: Comment on above: Protein electrophore sis scan will follow via computer,mail, or chief port director delivery. Estimated Creatinine Clearance Calc 41.48 ml/min [facility] Work Phone: Estimated GFR (MDRD) Amer 69 mL/min >60 [facility] Work Phone: Comment on above: GFR Calc Estimated GFR (MDRD) Non-Af Amer 57 mL/min >60 [facility] Work Phone: Comment on above: Non- GFR Calc Free Lambda Light Chains, Quant 13.3 mg/L [facility] Work Phone: Immature Reticulocyte Fraction 9.40 % 3.00-15.90 [facility] Reticulocyte Count 1.08 % 0.5-1.5 [facility] Total Iron Binding Capacity 332 ug/dL 250-450 [facility] Platelets bldon 02-25-2022 Platelets (Bld) [#/Vol] 256 10*3/uL 150-450 [facility] Work Phone: Serum [id number] measu rement by electrophoresison 02-25-2022 Alpha 1 globulin Elph [Mass/Vol] 0.3 g/dL [facility] Work Phone: [phone] Alpha 1 globulin Elph [Mass/Vol] 0.9 g/dL [facility] Work Phone: [phone] Serum globulin measurement ( mass/volume)on 02-25-2022 Globulin (S) [Mass/Vol] 3.5 g/dL [facility] Work Phone: [phone] Serum immunoglobulin kappa l ight chains/immunoglobulin lambda light chains mass ratioon 02-25-2022 Immunoglobulin light chains.kappa/Immunoglobu duglas light chains.lambda (S) [Mass ratio] 6.41 [facility] Work Phone: Comment on above: Performed at: [address] [id number] Director: Damion Garland PhD, Phone: [phone] Serum or plasma IgA measurem ent (mass/volume)on 02-25-2022 IgA [Mass/Vol] 364 mg/dL [facility] Work Phone: [phone] Serum or plasma IgG measurem ent (mass/volume)on 02-25-2022 IgG [Mass/Vol] 1205 mg/dL [facility] Work Phone: [phone] Serum or plasma IgM measurem ent (mass/volume)on 02-25-2022 IgM [Mass/Vol] 45 mg/dL [facility] Work Phone: [phone] Serum or plasma albumin gurpreet urement (mass/volume)on 02-25-2022 Albumin [Mass/Vol] 3.4 g/dL 3.2-5.0 [facility] Work Phone: [phone] Serum or plasma albumin/glob ulin mass ratioon 02-25-2022 Albumin/Globulin [Mass ratio] 0.8 {ratio} 0.9-2.4 [facility] Work Phone: [phone] Serum or plasma beta globuli n measurement by electrophoresis (mass/volume)on 02-25-2022 Beta globulin Elph [Mass/Vol] 1.1 g/dL [facility] Work Phone: Serum or plasma calcium gurpreet urement (mass/volume)on 02-25-2022 Calcium [Mass/Vol] 8.8 mg/dL 8.5-10.1 [facility] Work Phone: Serum or plasma creatinine m easurement (mass/volume)on 02-25-2022 Creatinine [Mass/Vol] 1.29 mg/dL 0.70-1.30 [facility] Work Phone: Comment on above: The validity of the calculated GFR & GFRAA in patients over 70 years has not been determined. Clinical correlation is essential. Serum or plasma ferritin viri surement (mass/volume)on 02-25-2022 Ferritin [Mass/Vol] 70 ng/mL 26-388 [facility] Serum or plasma folate measu rement (mass/volume)on 02-25-2022 Folate [Mass/Vol] 45.80 ng/mL 3.1-55.4 [facility] Serum or plasma gamma globul in measurement by electrophoresis (mass/volume)on 02-25-2022 Gamma globulin Elph [Mass/Vol] 1.1 g/dL [facility] Work Phone: Serum or plasma immunoelectr ophoresis interpretation (nominal result)on 02-25-2022 Interpretation IEP [Interp] Comment [facility] Work Phone: Comment on above: Immunofixation shows IgG monoclonal protein with kappalight chain specificity.Please note that samples from patients receivingDARZALEX(R) (daratumumab) treatment can appear as an IgGkappa and mask a complete response. If this patient isreceiving WALT, this DARIUSZ assay interference can be removedby ordering test number [id number], Daratumumab-Specific, Serum and submitting a new sample for testing orby calling the lab to add this test to the current sample. Serum or plasma immunoglobul in kappa light chains measurement (mass/volume)on 02-25-2022 Immunoglobulin light chains.kappa [Mass/Vol] 85.2 mg/L [facility] Work Phone: Serum or plasma iron saturat ion measurement (mass fraction)on 02-25-2022 Iron saturation [Mass fraction] 19.6 % 15.0-55.0 [facility] Serum or plasma urea nitroge n measurement (mass/volume)on 02-25-2022 Urea nitrogen [Mass/Vol] 18 mg/dL 7-18 [facility] Work Phone: Thin prep Papanicolaou smear with manual screeningon 02-25-2022 Thin prep Papanicolaou smear with manual screening 25 U/L 15-37 [facility] Work Phone: Thin prep Papanicolaou smear with manual screening 7 5-15 [facility] Work Phone: Thin prep Papanicolaou smear with manual screening 240 U/L 87-241 [facility] Work Phone: Thin prep Papanicolaou smear with manual screening 1.1 [facility] Work Phone: Total protein bloodon 2021 Protein [Mass/Vol] 7.1 g/dL [facility] Work Phone: Basophil percentageon 2021 Ammonia (P) [Moles/Vol] 16.0 umol/L 11-32 [facility] Work Phone: No Panel Informationon 01-08 Levetiracetam (Keppra) Level 22.1 ug/mL [facility] Work Phone: Serum or plasma lamotrigine measurement (mass/volume)on 01-08-2022 lamoTRIgine [Mass/Vol] 2.5 ug/mL [facility] Work Phone: Comment on above: Detection Limit = 1. 0Performed at: - [address] [id number] Director: Cristiana Tavera MD, Phone: [phone] Basophil percentageon 2021 Basophil percentage 0-5 SEEN /hpf [facility] Work Phone: Bilirubin Test strip Ql (U)o n 12-16-2021 Bilirubin Ql (U) Negative Negative [facility] Work Phone: Ketones Test strip Ql (U)on 12-16-2021 Ketones Ql (U) 15 mg/dl Negative [facility] Work Phone: Mucus LM Ql (Urine sed)on Mucus Ql (Urine sed) 0 SEEN /hpf [facility] Work Phone: Nitrite Test strip Ql (U)on 12-16-2021 Nitrite Ql (U) Negative Negative [facility] Work Phone: Protein Test strip Ql (U)on 12-16-2021 Protein Ql (U) 30 mg/dl Negative [facility] Work Phone: Squamous epithelial cells de tection in urine sediment by light microscopyon 12-16-2021 Epithelial cells.squamous LM Ql (Urine sed) 0 SEEN /hpf [facility] Work Phone: Urine blood detectionon RBC Ql (U) Negative Negative [facility] Work Phone: RBC Ql (U) 0 SEEN /hpf [facility] Work Phone: Urine clarityon 12-16-2021 Clarity (U) Clear Clear [facility] Work Phone: Urine color determinationon 12-16-2021 Color (U) Yellow Yellow [facility] Work Phone: Urine glucose detectionon Glucose Ql (U) Normal mg/dl Normal [facility] Work Phone: Urine leukocyte esterase det ection by dipstickon 12-16-2021 Leukocyte esterase Test strip Ql (U) 25 /ul Negative [facility] Work Phone: Urine pHon 12-16-2021 pH (U) 7.0 [pH] [facility] Work Phone: Urine sediment bacteria coun t by microscopy (number/high power field)on 12-16-2021 Bacteria LM.HPF (Urine sed) [#/Area] 0 /[HPF] None Seen [facility] Work Phone: Urine specific gravity measu rementon 12-16-2021 Specific gravity (U) [Rel density] 1.010 [facility] Work Phone: Urobilinogen Auto test strip Ql (U)on 12-16-2021 Urobilinogen Ql (U) Normal mg/dl Normal [facility] Work Phone: [phone] Absolute lymphocyte counton 09-17-2021 Lymphocytes Auto (Unsp spec) [#/Vol] 2.37 10*3/uL 0.83-4.51 [facility] Work Phone: [phone] Basophil percentageon 2020 Bilirubin [Mass/Vol] 0.40 mg/dL 0.20-1.00 [facility] Work Phone: Comment on above: For patients on eltr ombopag therapy, use of Dimension [place] TBIL is not recommended. Chloride [Moles/Vol] 94 mmol/L 98-107 [facility] Work Phone: [phone] Eosinophils/100 WBC (Bld) 7.3 % 0-5 [facility] Work Phone: [phone] Glucose [Mass/Vol] 131 mg/dL 74-106 [facility] Work Phone: Comment on above: Fasting Glucose resu lt greater than or equal to 126 mg/dL suggests DIABETES MELLITUS per A.D.A. criteria.Please note revised GLUCOSE reference range effective 2017. Neutrophils (Bld) [#/Vol] 5.4 10*3/uL 2.0-7.7 [facility] Work Phone: [phone] Potassium [Moles/Vol] 3.9 mmol/L 3.5-5.1 [facility] Work Phone: [phone] Protein [Mass/Vol] 7.5 g/dL 6.4-8.2 [facility] Work Phone: [phone] Sodium [Moles/Vol] 132 mmol/L 136-145 [facility] Work Phone: [phone] WBC (Bld) [#/Vol] 9.2 10*3/uL 4.4-11.0 [facility]: [phone] Blood erythrocytes count (nu mber/volume)on 09-17-2021 RBC (Bld) [#/Vol] 3.84 10*6/uL 4.6-6.2 [facility]: [phone] Blood hemoglobin measurement (mass/volume)on 09-17-2021 Hemoglobin (Bld) [Mass/Vol] 11.9 g/dL 13.0-16.5 [facility] Work Phone: Blood lymphocytes/100 leukoc yteson 09-17-2021 Lymphocytes/100 WBC (Bld) 25.8 % 19-41 [facility] Work Phone: Blood monocytes/100 leukocyt eson 09-17-2021 Monocytes/100 WBC (Bld) 7.1 % 0-10 [facility] Work Phone: [phone] Blood platelet mean volumeon 09-17-2021 Platelet mean volume (Bld) [Entitic vol] 9.3 fL 6.2-12.0 [facility] Work Phone: [phone] Determination of erythrocyte mean corpuscular volume (MCV)on 09-17-2021 MCV (RBC) [Entitic vol] 88.5 fL 80-94 [facility] Work Phone: [phone] Hematocrit Auto (Bld) [Volum e fraction]on 09-17-2021 Hematocrit (Bld) [Volume fraction] 34.0 % 40-54 [facility] Work Phone: [phone] Laboratory - Chemistry and C hemistry - challengeon 09-17-2021 ALP [Catalytic activity/Vol] 133 U/L 45-117 [facility] Work Phone: [phone] ALT [Catalytic activity/Vol] 19 U/L 16-61 [facility] Work Phone: [phone] CO2 [Moles/Vol] 28.0 mmol/L 21.0-32.0 [facility] Work Phone: [phone] Globulin (S) [Mass/Vol] 4.3 g/dL 2.2-4.2 [facility] Work Phone: Urea nitrogen/Creatinine [Mass ratio] 13.8 mg/mg 10-20 [facility] Work Phone: Laboratory - Hematology and Cell countson 09-17-2021 Basophils/100 WBC (Unsp spec) 1.1 % 0-1 [facility] Work Phone: [phone] Erythrocyte distribution width (RBC) [Entitic vol] 42.3 fL 35.1-43.9 [facility] Work Phone: [phone] Erythrocyte distribution width (RBC) [Ratio] 13.0 % 11.6-14.6 [facility] Work Phone: [phone] Immature granulocytes/100 WBC (Bld) 0.300 % 0.0-0.9 [facility] Work Phone: Comment on above: IG% - Immature Granu locytes (promyelocytes, myelocytes and metamyelocytes) > 1% indicates that a LEFT SHIFT is Present. MCH (RBC) [Entitic mass] 31.0 pg 27.0-32.0 [facility] Work Phone: [phone] Neutrophils/100 WBC (Bld) 58.4 % 47-70 [facility] Work Phone: [phone] Nucleated RBC/100 WBC (Bld) [Ratio] 0 % 0-5 [facility] Work Phone: MCHC Auto (RBC) [Mass/Vol]on 09-17-2021 MCHC (RBC) [Mass/Vol] 35.0 g/dL 32-36 [facility] Work Phone: No Panel Informationon 09-17 Estimated Creatinine Clearance Calc 49.88 ml/min [facility] Work Phone: Estimated GFR (MDRD) Amer 84 mL/min >60 [facility] Work Phone: Comment on above: GFR Calc Estimated GFR (MDRD) Non-Af Amer 70 mL/min >60 [facility] Work Phone: Comment on above: Non- GFR Calc Platelets bldon 09-17-2021 Platelets (Bld) [#/Vol] 244 10*3/uL 150-450 [facility] Work Phone: Serum or plasma albumin gurpreet urement (mass/volume)on 09-17-2021 Albumin [Mass/Vol] 3.2 g/dL 3.2-5.0 [facility] Work Phone: Serum or plasma albumin/glob ulin mass ratioon 09-17-2021 Albumin/Globulin [Mass ratio] 0.7 {ratio} 0.9-2.4 [facility] Work Phone: Serum or plasma calcium gurpreet urement (mass/volume)on 09-17-2021 Calcium [Mass/Vol] 8.6 mg/dL 8.5-10.1 [facility] Work Phone: Serum or plasma creatinine m easurement (mass/volume)on 09-17-2021 Creatinine [Mass/Vol] 1.09 mg/dL 0.70-1.30 [facility] Work Phone: Comment on above: The validity of the calculated GFR & GFRAA in patients over 70 years has not been determined. Clinical correlation is essential. Serum or plasma urea nitroge n measurement (mass/volume)on 09-17-2021 Urea nitrogen [Mass/Vol] 15 mg/dL 7-18 [facility] Work Phone: Thin prep Papanicolaou smear with manual screeningon 09-17-2021 Thin prep Papanicolaou smear with manual screening 22 U/L 15-37 [facility] Work Phone: Thin prep Papanicolaou smear with manual screening 10 5-15 [facility] Work Phone: Thin prep Papanicolaou smear with manual screening 250 U/L 87-241 [facility] Work Phone: Stool gastrointestinal hemog lobin detection by immunologic methodon 03-25-2021 Lower GI hemoglobin IA Ql (Stl) [facility] Iron measurement (mass/mass) on 06-11-2021 Iron (Unsp spec) [Mass/Mass] 60 ug/dL 65-175 [facility] Work Phone: Laboratory - Chemistry and C hemistry - challengeon 03-23-2021 Cobalamin (Vitamin B12) [Mass/Vol] 679 pg/mL 211-911 [facility] Work Phone: No Panel Informationon 03-23 Total Iron Binding Capacity 299 ug/dL 250-450 [facility] Work Phone: [phone] Serum or plasma ferritin viri surement (mass/volume)on 03-23-2021 Ferritin [Mass/Vol] 171 ng/mL 26-388 [facility] Work Phone: Serum or plasma folate measu rement (mass/volume)on 03-23-2021 Folate [Mass/Vol] 60.10 ng/mL 3.1-55.4 [facility] Work Phone: Albumin Elph [Mass/Vol]on Albumin [Mass/Vol] 3.4 g/dL [facility] Work Phone: Interpretation of serum or p lasma protein pattern by immunofixation (narrative resulton 03-14-2021 Protein Fractions Immunofixation Dev [Interp] 0.7 g/dL Not Observed [facility] Work Phone: No Panel Informationon 03-14 Addendum Document Comment [facility] Work Phone: Comment on above: Protein electrophore sis scan will follow via computer,mail, or chief port director delivery. Free Lambda Light Chains, Quant 12.0 mg/L [facility] Work Phone: Serum tygbo-0-avjdzgxb measu rement by electrophoresison 03-14-2021 Alpha 1 globulin Elph [Mass/Vol] 0.3 g/dL [facility] Work Phone: Alpha 1 globulin Elph [Mass/Vol] 0.8 g/dL [facility] Work Phone: Serum immunoglobulin kappa l ight chains/immunoglobulin lambda light chains mass ratioon 03-14-2021 Immunoglobulin light chains.kappa/Immunoglobu duglas light chains.lambda (S) [Mass ratio] 8.87 [facility] Work Phone: Comment on above: Performed at: [address] [id number] Director: Damion Garland PhD, Phone: [phone] Serum or plasma IgA measurem ent (mass/volume)on 03-14-2021 IgA [Mass/Vol] 313 mg/dL [facility] Work Phone: Serum or plasma IgG measurem ent (mass/volume)on 03-14-2021 IgG [Mass/Vol] 1003 mg/dL [facility] Work Phone: Serum or plasma IgM measurem ent (mass/volume)on 03-14-2021 IgM [Mass/Vol] 38 mg/dL [facility] Work Phone: Serum or plasma beta globuli n measurement by electrophoresis (mass/volume)on 03-14-2021 Beta globulin Elph [Mass/Vol] 1.0 g/dL [facility] Work Phone: Serum or plasma gamma globul in measurement by electrophoresis (mass/volume)on 03-14-2021 Gamma globulin Elph [Mass/Vol] 1.1 g/dL [facility] Work Phone: Serum or plasma immunoelectr ophoresis interpretation (nominal result)on 03-14-2021 Interpretation IEP [Interp] Comment [facility] Work Phone: Comment on above: Immunofixation shows IgG monoclonal protein with kappalight chain specificity.Please note that samples from patients receivingDARZALEX(R) (daratumumab) treatment can appear as an IgGkappa and mask a complete response. If this patient isreceiving WALT, this DARIUSZ assay interference can be removedby ordering test number [id number], Daratumumab-Specific, Serum and submitting a new sample for testing orby calling the lab to add this test to the current sample. Serum or plasma immunoglobul in kappa light chains measurement (mass/volume)on 06-02-2021 Immunoglobulin light chains.kappa [Mass/Vol] 106.4 mg/L [facility] Work Phone: Serum or plasma uric acid me asurement (mass/volume)on 03-14-2021 Urate [Mass/Vol] 4.2 mg/dL 3.5-7.2 [facility] Comment on above: The drugs N-Acetylcy steine and Metamizole may falsely depress this assay. Thin prep Papanicolaou smear with manual screeningon 03-14-2021 Thin prep Papanicolaou smear with manual screening 1.1 [facility] Work Phone: Total protein bloodon 2020 Protein [Mass/Vol] 6.6 g/dL [facility] Work Phone: Vital Signs Date Time Vital Sign Value Performing Clinician Faci lity 03-22-2025 10:19-0400 Diastolic blood pressure 82 mm[Hg] Dr. Socrates Kumar DO Work Phone: [facility] 03-22-2025 10:19-0400 Systolic blood pressure 146 mm[Hg] Dr. Socrates Kumar DO Work Phone: [facility] 03-22-2025 09:53-0400 Body height 172.[address] Socrates Kumar DO Work Phone: [facility] 03-22-2025 09:53-0400 Body mass index (BMI) [Ratio] 20.9 kg/m2 Dr. Socrates Kumar DO Work Phone: [facility] 03-22-2025 09:53-0400 Body temperature 97.5 [degF] Dr. Socrates Kumar DO Work Phone: [facility] 03-22-2025 09:53-0400 Body weight 62.[address] Socrates Kumar DO Work Phone: [facility] 03-22-2025 09:53-0400 Heart rate 85 /min Dr. Socrates Kumar DO Work Phone: [facility] 03-22-2025 09:53-0400 Respiratory rate 16 /min Dr. Socrates Kumar DO Work Phone: [facility] 03-22-2025 09:53-0400 SaO2% (BldA) [Mass fraction] 98 % Dr. Socrates Kumar DO Work Phone: [facility] 02-18-2025 10:54-0400 Body mass index (BMI) [Ratio] 21.9 kg/m2 Dr. Socrates Kumar DO Work Phone: [facility] 02-18-2025 10:54-0400 Body weight 65.[address] Socrates Kumar DO Work Phone: [facility] 11-22-2024 12:06-0500 Body mass index (BMI) [Ratio] 20.9 kg/m2 Dr. Socrates Kumar DO Work Phone: [facility] 11-22-2024 12:06-0500 Body temperature 98.3 [degF] Dr. Socrates Kumar DO Work Phone: [facility] 11-22-2024 12:06-0500 Body weight 62.[address] Socrates Kumar DO Work Phone: [facility] 11-22-2024 12:06-0500 Diastolic blood pressure 74 mm[Hg] Dr. Socrates Kumar DO Work Phone: [facility] 11-22-2024 12:06-0500 Heart rate 66 /min Dr. Socrates Kumar DO Work Phone: [facility] 11-22-2024 12:06-0500 Respiratory rate 16 /min Dr. Socrates Kumar DO Work Phone: [facility] 11-22-2024 12:06-0500 SaO2% (BldA) [Mass fraction] 100 % Dr. Socrates Kumar DO Work Phone: [facility] 11-22-2024 12:06-0500 Systolic blood pressure 159 mm[Hg] Dr. Socrates Kumar DO Work Phone: [facility] 11-20-2023 09:37-0500 Body height 172.[address] Socrates Kumar Work Phone: [facility] 11-20-2023 09:37-0500 Body mass index (BMI) [Ratio] 22.8 kg/m2 Dr. Socrates Kumar Work Phone: [facility] 11-20-2023 09:37-0500 Body temperature 98.2 [degF] Dr. Socrates Kumar Work Phone: [facility] 11-20-2023 09:37-0500 Body weight 68.[address] Socrates Kumar Work Phone: [facility] 11-20-2023 09:37-0500 Diastolic blood pressure 68 mm[Hg] Dr. Socrates Kumar Work Phone: [facility] 11-20-2023 09:37-0500 Heart rate 65 /min Dr. Socrates Kumar Work Phone: [facility] 11-20-2023 09:37-0500 Respiratory rate 18 /min Dr. Socrates Kumra Work Phone: [facility] 11-20-2023 09:37-0500 SaO2% (BldA) [Mass fraction] 98 % Dr. Socrates Kumar Work Phone: [facility] 11-20-2023 09:37-0500 Systolic blood pressure 137 mm[Hg] Dr. Socrates Kumar Work Phone: [facility] 11-19-2023 09:27-0500 Body temperature 97.7 [degF] Dr. Socrates Kumar Work Phone: [facility] 11-19-2023 09:27-0500 Body weight 68.[address] Socrates Kumar Work Phone: [facility] 11-19-2023 09:27-0500 Diastolic blood pressure 68 mm[Hg] Dr. Socrates Kumar Work Phone: [facility] 11-19-2023 09:27-0500 Heart rate 77 /min Dr. Socrates Kumar Work Phone: [facility] 11-19-2023 09:27-0500 Respiratory rate 15 /min Dr. Socrates Kumar Work Phone: [facility] 11-19-2023 09:27-0500 SaO2% (BldA) [Mass fraction] 99 % Dr. Socrates Kumar Work Phone: [facility] 11-19-2023 09:27-0500 Systolic blood pressure 130 mm[Hg] Dr. Socrates Kumar Work Phone: [facility] 11-05-2023 10:30-0500 Body mass index (BMI) [Ratio] 22.9 kg/m2 Dr. Socrates Kumar Work Phone: [facility] 11-05-2023 10:30-0500 Body temperature 98.4 [degF] Dr. Socrates Kumar Work Phone: [facility] 11-05-2023 10:30-0500 Body weight 68.[address] Socrates Kumar Work Phone: [facility] 11-05-2023 10:30-0500 Diastolic blood pressure 74 mm[Hg] Dr. Socrates Kumar Work Phone: [facility] 11-05-2023 10:30-0500 Heart rate 63 /min Dr. Socrates Kumar Work Phone: [facility] 11-05-2023 10:30-0500 Respiratory rate 18 /min Dr. Socrates Kumar Work Phone: [facility] 11-05-2023 10:30-0500 SaO2% (BldA) [Mass fraction] 98 % Dr. Socrates Kumar Work Phone: [facility] 11-05-2023 10:30-0500 Systolic blood pressure 155 mm[Hg] Dr. Socrates Kumar Work Phone: [facility] 06-04-2023 10:37-0400 Body height 172.[address] Socrates Kumar Work Phone: [facility] 06-04-2023 10:37-0400 Body mass index (BMI) [Ratio] 23.2 kg/m2 Dr. Socrates Kumar Work Phone: [facility] 06-04-2023 10:37-0400 Body temperature 98.2 [degF] Dr. Socrates Kumar Work Phone: [facility] 06-04-2023 10:37-0400 Body weight 69.[address] Socrates Kumar Work Phone: [facility] 06-04-2023 10:37-0400 Diastolic blood pressure 78 mm[Hg] Dr. Socrates Kumar Work Phone: [facility] 06-04-2023 10:37-0400 Heart rate 85 /min Dr. Socrates Kumar Work Phone: [facility] 06-04-2023 10:37-0400 Respiratory rate 17 /min Dr. Socrates Kumar Work Phone: [facility] 06-04-2023 10:37-0400 SaO2% (BldA) [Mass fraction] 99 % Dr. Socrates Kumar Work Phone: [facility] 06-04-2023 10:37-0400 Systolic blood pressure 150 mm[Hg] Dr. Socrates Kumar Work Phone: [facility] 03-03-2023 13:40-0400 Body mass index (BMI) [Ratio] 23.2 kg/m2 Dr. Socrates Kumar Work Phone: [facility] 03-03-2023 13:40-0400 Body temperature 98.3 [degF] Dr. Socrates Kumar Work Phone: [facility] 03-03-2023 13:40-0400 Body weight 69.[address] Socrates Kumar Work Phone: [facility] 03-03-2023 13:40-0400 Diastolic blood pressure 79 mm[Hg] Dr. Socrates Kumar Work Phone: [facility] 03-03-2023 13:40-0400 Heart rate 67 /min Dr. Socrates Kumar Work Phone: [facility] 03-03-2023 13:40-0400 Respiratory rate 16 /min Dr. Socrates Kumar Work Phone: [facility] 03-03-2023 13:40-0400 SaO2% (BldA) [Mass fraction] 98 % Dr. Socrates Kumar Work Phone: [facility] 03-03-2023 13:40-0400 Systolic blood pressure 152 mm[Hg] Dr. Socrates Kumar Work Phone: [facility] 12-19-2022 10:45-0500 Body height 170.[address] Bruce Washington Work Phone: [facility] 12-19-2022 10:45-0500 Body mass index (BMI) [Ratio] 23.8 kg/m2 Dr. Bruce Washington Work Phone: [facility] 12-19-2022 10:45-0500 Body temperature 98 [degF] Dr. Bruce Washington Work Phone: [facility] 12-19-2022 10:45-0500 Body weight 69.[address] Bruce Washington Work Phone: [facility] 12-19-2022 10:45-0500 Diastolic blood pressure 80 mm[Hg] Dr. Bruce Washington Work Phone: [facility] 12-19-2022 10:45-0500 Heart rate 72 /min Dr. Bruce Washington Work Phone: [facility] 12-19-2022 10:45-0500 Respiratory rate 16 /min Dr. Bruce Washington Work Phone: [facility] 12-19-2022 10:45-0500 SaO2% (BldA) [Mass fraction] 99 % Dr. Bruce Washington Work Phone: [facility] 12-19-2022 10:45-0500 Systolic blood pressure 140 mm[Hg] Dr. Bruce Washington Work Phone: [facility] 11-07-2022 15:24-0500 Body mass index (BMI) [Ratio] 23.8 kg/m2 Dr. Bruce Washington Work Phone: [facility] 11-07-2022 15:24-0500 Body weight 69.[address] Bruce Washington Work Phone: [facility] 11-07-2022 15:24-0500 Diastolic blood pressure 70 mm[Hg] Dr. Bruce Washington Work Phone: [facility] 11-07-2022 15:24-0500 Heart rate 68 /min Dr. Bruce Washington Work Phone: [facility] 11-07-2022 15:24-0500 Respiratory rate 18 /min Dr. Bruce Washington Work Phone: [facility] 11-07-2022 15:24-0500 Systolic blood pressure 134 mm[Hg] Dr. Bruce Washington Work Phone: [facility] 07-01-2022 13:24-0400 Diastolic blood pressure 57 mm[Hg] Dr. Bruce Washington Work Phone: [facility] Work Phone: 07-01-2022 13:24-0400 Systolic blood pressure 126 mm[Hg] Dr. Bruce Washington Work Phone: [facility] Work Phone: 07-01-2022 12:54-0400 Body height 170.[address] Bruce Washington Work Phone: [facility] Work Phone: 07-01-2022 12:54-0400 Body mass index (BMI) [Ratio] 23.9 kg/m2 Dr. Bruce Washington Work Phone: [facility] Work Phone: 07-01-2022 12:54-0400 Body temperature 98 [degF] Dr. Bruce Washington Work Phone: [facility] Work Phone: 07-01-2022 12:54-0400 Body weight 69.[address] Bruce Washington Work Phone: [facility] Work Phone: 07-01-2022 12:54-0400 Heart rate 74 /min Dr. Bruce Washington Work Phone: [facility] Work Phone: 07-01-2022 12:54-0400 Respiratory rate 16 /min Dr. Bruce Washington Work Phone: [facility] Work Phone: 07-01-2022 12:54-0400 SaO2% (BldA) [Mass fraction] 99 % Dr. Bruce Washington Work Phone: [facility] Work Phone: 04-19-2022 13:17-0400 Body mass index (BMI) [Ratio] 22.9 kg/m2 Dr. Bruce Washington Work Phone: [facility] Work Phone: 04-19-2022 13:17-0400 Body weight 66.[address] Bruce Washington Work Phone: [facility] Work Phone: 04-19-2022 13:17-0400 Diastolic blood pressure 64 mm[Hg] Dr. Bruce Washington Work Phone: [facility] Work Phone: 04-19-2022 13:17-0400 Heart rate 64 /min Dr. Bruce Washington Work Phone: [facility] Work Phone: 04-19-2022 13:17-0400 Respiratory rate 18 /min Dr. Bruce Washington Work Phone: [facility] Work Phone: 04-19-2022 13:17-0400 Systolic blood pressure 140 mm[Hg] Dr. Bruce Washington Work Phone: [facility] Work Phone: 03-25-2022 11:16-0400 Body mass index (BMI) [Ratio] 22.1 kg/m2 Dr. Bruce Washington Work Phone: [facility] Work Phone: 03-25-2022 11:16-0400 Body weight 63.[address] Bruce Washington Work Phone: [facility] Work Phone: 03-04-2022 14:18-0400 Body height 170.[address] Bruce Washington Work Phone: [facility] Work Phone: 03-04-2022 14:18-0400 Body mass index (BMI) [Ratio] 22.3 kg/m2 Dr. Bruce Washington Work Phone: [facility] Work Phone: 03-04-2022 14:18-0400 Body temperature 98.6 [degF] Dr. Bruce Washington Work Phone: [facility] Work Phone: 03-04-2022 14:18-0400 Body weight 64.[address] Bruce Washington Work Phone: [facility] Work Phone: 03-04-2022 14:18-0400 Diastolic blood pressure 79 mm[Hg] Dr. Bruce Washington Work Phone: [facility] Work Phone: 03-04-2022 14:18-0400 Heart rate 76 /min Dr. Bruce Washington Work Phone: [facility] Work Phone: 03-04-2022 14:18-0400 Respiratory rate 15 /min Dr. Bruce Washington Work Phone: [facility] Work Phone: 03-04-2022 14:18-0400 SaO2% (BldA) [Mass fraction] 98 % Dr. Bruce Washington Work Phone: [facility] Work Phone: 03-04-2022 14:18-0400 Systolic blood pressure 131 mm[Hg] Dr. Bruce Washington Work Phone: [facility] Work Phone: 01-03-2022 14:02-0400 Diastolic blood pressure 88 mm[Hg] Dr. Bruce Washington Work Phone: [facility] Work Phone: 01-03-2022 14:02-0400 Heart rate 74 /min Dr. Bruce Washington Work Phone: [facility] Work Phone: 01-03-2022 14:02-0400 Respiratory rate 18 /min Dr. Bruce Washington Work Phone: [facility] Work Phone: 01-03-2022 14:02-0400 SaO2% (BldA) [Mass fraction] 99 % Dr. Bruce Washington Work Phone: [facility] Work Phone: 01-03-2022 14:02-0400 Systolic blood pressure 162 mm[Hg] Dr. Bruce Washington Work Phone: [facility] Work Phone: 12-16-2021 12:12-0500 Body height 170.[address] Bruce Washington Work Phone: [facility] Work Phone: 12-16-2021 12:12-0500 Body mass index (BMI) [Ratio] 21.6 kg/m2 Dr. Bruce Washington Work Phone: [facility] Work Phone: 12-16-2021 12:12-0500 Body temperature 96.9 [degF] Dr. Bruce Washington Work Phone: [facility] Work Phone: 12-16-2021 12:12-0500 Body weight 62.[address] Bruce Washington Work Phone: [facility] Work Phone: 12-16-2021 12:12-0500 Diastolic blood pressure 94 mm[Hg] Dr. Bruce Washington Work Phone: [facility] Work Phone: 12-16-2021 12:12-0500 Heart rate 86 /min Dr. Bruce Washington Work Phone: [facility] Work Phone: 12-16-2021 12:12-0500 Respiratory rate 18 /min Dr. Bruce Washington Work Phone: [facility] Work Phone: 12-16-2021 12:12-0500 SaO2% (BldA) [Mass fraction] 98 % Dr. Bruce Washington Work Phone: [facility] Work Phone: 12-16-2021 12:12-0500 Systolic blood pressure 143 mm[Hg] Dr. Bruce Washington Work Phone: [facility] Work Phone: 09-17-2021 12:57-0500 Body mass index (BMI) [Ratio] 20.8 kg/m2 Dr. Bruce Washington Work Phone: [facility] Work Phone: 09-17-2021 12:57-0500 Body temperature 98.4 [degF] Dr. Bruce Washington Work Phone: [facility] Work Phone: 09-17-2021 12:57-0500 Body weight 62.[address] Bruce Washington Work Phone: [facility] Work Phone: 09-17-2021 12:57-0500 Diastolic blood pressure 76 mm[Hg] Dr. Bruce Washington Work Phone: [facility] Work Phone: 09-17-2021 12:57-0500 Heart rate 64 /min Dr. Bruce Washington Work Phone: [facility] Work Phone: 09-17-2021 12:57-0500 Respiratory rate 17 /min Dr. Bruce Washington Work Phone: [facility] Work Phone: 09-17-2021 12:57-0500 SaO2% (BldA) [Mass fraction] 99 % Dr. Bruce Washington Work Phone: [facility] Work Phone: 09-17-2021 12:57-0500 Systolic blood pressure 162 mm[Hg] Dr. Bruce Washington Work Phone: [facility] Work Phone: 09-19-2020 13:41-0500 Body mass index (BMI) [Ratio] 21.4 kg/m2 Dr. Socrates Kumar Work Phone: [facility] 09-19-2020 13:41-0500 Body temperature 97.5 [degF] Dr. Socrates Kumar Work Phone: [facility] 09-19-2020 13:41-0500 Diastolic blood pressure 69 mm[Hg] Dr. Socrates Kumar Work Phone: [facility] 09-19-2020 13:41-0500 Heart rate 65 /min Dr. Socrates Kumar Work Phone: [facility] 09-19-2020 13:41-0500 Respiratory rate 14 /min Dr. Socrates Kumar Work Phone: [facility] 09-19-2020 13:41-0500 SaO2% (BldA) [Mass fraction] 99 % Dr. Socrates Kumar Work Phone: [facility] 09-19-2020 13:41-0500 Systolic blood pressure 116 mm[Hg] Dr. Socrates Kumar Work Phone: [facility] 09-19-2020 12:41-0500 Body mass index (BMI) [Ratio] 21.4 kg/m2 Dr. Bruce Washington Work Phone: [facility] Work Phone: 09-19-2020 12:41-0500 Body temperature 97.5 [degF] Dr. Bruce Washington Work Phone: [facility] Work Phone: 09-19-2020 12:41-0500 Body weight 62.[address] Bruce Washington Work Phone: [facility] Work Phone: 09-19-2020 12:41-0500 Diastolic blood pressure 69 mm[Hg] Dr. Bruce Washington Work Phone: [facility] Work Phone: 09-19-2020 12:41-0500 Heart rate 65 /min Dr. Bruce Washington Work Phone: [facility] Work Phone: 09-19-2020 12:41-0500 Respiratory rate 14 /min Dr. Bruce Washington Work Phone: [facility] Work Phone: 09-19-2020 12:41-0500 SaO2% (BldA) [Mass fraction] 99 % Dr. Bruce Washington Work Phone: [facility] Work Phone: 09-19-2020 12:41-0500 Systolic blood pressure 116 mm[Hg] Dr. Bruce Washington Work Phone: [facility] Work Phone: Encounters Encounter Date Encounter Type Care Provider Facility Start: 06-15-2025 End: 06-15-[address] Socrates Kumar DO Work Phone: -[facility] Start: 06-15-2025 End: 06-15-[address] Azeem Dumont MD -[facility] Work Phone: Start: 06-06-2025 End: 06-06-[address] Curtis Francis DO -[facility] Work Phone: Start: 06-06-2025 End: 06-06-[address] Socrates Kumar DO Work Phone: -[facility] Start: 03-22-2025 End: 03-22-[address] Pool White MD -[facility] Work Phone: Start: 03-22-2025 End: 03-22-[address] Socrates Kumar DO Work Phone: [facility] Work Phone: Start: 03-17-2025 End: 03-17-[address] Socrates Kumar DO Work Phone: [facility] Work Phone: Start: 03-17-2025 End: 03-17-[address] Jacobo Alex DPFrank [facility] Work Phone: Start: 03-16-2025 End: 03-17-[address] Socrates Kumar DO Work Phone: [facility] Work Phone: Start: 03-16-2025 End: 03-16-[address] [facility] Start: 03-04-2025 End: 03-04-[address] Curtis Francis DO -[facility] Work Phone: Start: 03-04-2025 End: 03-04-2025 ambulatory [facility] Facility:[facility] Start: 02-18-2025 End: 02-18-2025 Patient encounter procedure Alla Burks [place] -[facility] Work Phone: Start: 02-18-2025 End: 02-18-2025 ambulatory Alla Kimmie Facility:[facility] Start: 12-15-2024 End: 12-15-2024 ambulatory [facility] Start: 12-15-2024 End: 12-15-[address] Azeem Dumont MD -[facility] Work Phone: Start: 12-03-2024 End: 12-03-[address] Curtis Francis DO [facility] Work Phone: Start: 12-03-2024 End: 12-03-2024 ambulatory [facility] Start: 11-22-2024 End: 11-22-2024 Patient encounter procedure Ely HAWLEY -[facility] Work Phone: Start: 11-22-2024 End: 11-22-2024 ambulatory [facility] Start: 11-17-2024 End: 11-17-2024 ambulatory [facility] Start: 11-11-2024 ambulatory [facility] Facility: [facility] Start: 09-15-2024 End: 09-15-2024 ambulatory [facility] Start: 09-02-2024 End: 09-02-2024 ambulatory Alla Kimmie Facility:[facility] Start: 08-27-2024 End: 08-27-2024 ambulatory [facility] Start: 08-11-2024 End: 08-11-2024 ambulatory Socrates Kumar Facility:[facility] Start: 07-30-2024 End: 07-30-2024 ambulatory Socrates Kumar Facility:[facility] Start: 07-29-2024 End: 07-29-2024 ambulatory Socrates Kumar Facility:[facility] Start: 07-20-2024 End: 07-20-2024 ambulatory Socrates Kumar Facility:[facility] Start: 07-20-2024 End: 07-20-2024 ambulatory Socrates Kumar Facility:[facility] Start: 12-05-2023 End: 12-05-[address] Socrates Kumar Work Phone: [facility] Work Phone: Start: 12-05-2023 End: 12-05-[address] Socrates Kumar Work Phone: [facility] Work Phone: Start: 11-28-2023 End: 11-28-[address] Socrates Kumar Work Phone: [facility] Work Phone: Start: 11-20-2023 End: 11-20-[address] Socrates Kumar Work Phone: [facility] Work Phone: Start: 11-19-2023 End: 11-19-[address] Socrates Kumar Work Phone: [facility] Work Phone: Start: 11-18-[address] Socrates Kumar Work Phone: [facility] Start: 11-05-2023 End: 11-05-[address] Socrates Kumar Work Phone: [facility] Work Phone: Start: 10-27-2023 End: 10-27-[address] Socrates Kumar Work Phone: [facility] Work Phone: Start: 09-29-2023 End: 09-29-[address] Socrates Kumar Work Phone: [facility] Start: 09-17-2023 End: 09-17-[address] Socrates Kumar Work Phone: [facility] Work Phone: Start: 06-19-2023 End: 06-19-[address] Socrates Kumar Work Phone: [facility] Work Phone: Start: 06-17-2023 End: 06-17-[address] Socrates Kumar Work Phone: [facility] Work Phone: Start: 06-17-2023 End: 06-17-[address] Socrates Kumar Work Phone: [facility] Work Phone: Start: 06-12-2023 End: 06-12-[address] Socrates Kumar Work Phone: [facility] Work Phone: Start: 06-04-2023 End: 06-04-[address] Socrates Kumar Work Phone: [facility] Work Phone: Start: 03-03-2023 End: 03-03-[address] Socrates Kumar Work Phone: [facility] Work Phone: Start: 12-24-2022 End: 12-24-[address] Bruce Washington Work Phone: [facility] Work Phone: Start: 12-24-2022 End: 12-24-[address] Bruce Washington Work Phone: [facility] Start: 12-19-2022 End: 12-19-[address] Bruce Washington Work Phone: [facility] Start: 11-11-2022 End: 11-11-[address] Bruce Washington Work Phone: [facility] Start: 11-07-2022 End: 11-07-[address] Bruce Washington Work Phone: [facility] Start: 11-04-2022 End: 11-04-[address] Bruce Washington Work Phone: [facility] Start: 10-28-2022 End: 10-28-[address] Bruce Washington Work Phone: [facility] Start: 10-21-2022 End: 10-21-[address] Bruce Washington Work Phone: [facility] Start: 07-11-2022 End: 07-11-[address] Bruce Washington Work Phone: [facility] Work Phone: Start: 07-11-2022 End: 07-11-[address] Bruce Washington Work Phone: [facility] Start: 07-01-2022 End: 07-01-[address] Bruce Washington Work Phone: [facility] Start: 04-19-2022 End: 04-19-[address] Bruce Washington Work Phone: [facility] Start: 04-19-2022 End: 04-19-[address] Bruce Washington Work Phone: [facility] Start: 04-12-2022 End: 04-12-[address] Bruce Washington Work Phone: [facility] Start: 04-05-2022 End: 04-05-[address] Bruce Washington Work Phone: [facility] Start: 03-25-2022 End: 03-25-[address] Bruce Washington Work Phone: [facility] Start: 03-18-2022 End: 03-18-[address] Bruce [place] Work Phone: [facility] Start: 03-07-2022 End: 03-07-[address] Bruce Washington [facility] Start: 03-04-2022 End: 03-04-[address] Bruce Washington Work Phone: [facility] Start: 02-25-[address] Bruce Washington Work Phone: [facility] Start: 01-08-2022 End: 01-08-[address] Bruce Washington Work Phone: [facility] Start: 01-03-2022 End: 01-03-[address] Bruce Washington Work Phone: [facility] Start: 12-16-2021 End: 12-16-2021 Emergency department patient visit Dr. Bruce Washington Work Phone: [facility] Start: 09-17-[address] Bruce Washington Work Phone: [facility] Start: 09-17-2021 End: 09-17-[address] Bruce Washington Work Phone: [facility] Procedures Date Procedure Procedure Detail Performing Clinician Start: 03-17-[address] Socrates Kumar DO Work Phone: Start: 03-17-2025 Gram stain microscopy D radames Kumar DO Work Phone: Start: 03-17-2025 End: 03-17-2025 Microbial culture, routine Dr. Socrates gauthier DO Work Phone: Start: 02-18-2025 X-ray of cervical spine Dr. Socrates Kumar DO Work Phone: Start: 11-18-2023 Positron emission tomography with computed tomography Dr. Socrates Kumar Work Phone: Start: 10-27-2023 Plain x-ray of pelvi s and lower extremity Dr. Socrates Kumar Work Phone: Start: 09-29-2023 Plain x-ray of pelvi s and lower extremity Dr. Socrates Kumar Work Phone: Start: 03-25-2022 Radiologic examinati on of knee Dr. Bruce Washington Work Phone: Start: 12-16-2021 Echography of scrotu m and contents Dr. Bruce Washington Work Phone: Start: 03-25-2021 End: 03-25-2021 Measurement of occult blood in stool specimen using immunoassay Dr. Bruce Washington Work Phone: Plan of Treatment Date Care Activity Detail Author Start: 03-17-2025 Anaerobic microbial culture Anaerobic Culture [facility] Start: 03-17-2025 Source specific culture [facility] Start: 10-29-2023 Patient referral [facility] Work Phone: Blood ammonia measurement [facility] CBC W Auto Different ial panel - Blood [facility] Complete blood count [facility] metabo lic 1999 panel - Serum or Plasma [facility] 1999 panel - Serum or Plasma [facility] Lamotrigine measurement [facility] Measurement of substance [facility] Patient Education ED Epididymiti s ED Orchitis [facility] Work Phone: Patient referral [facility] Work Phone: Serum immunofixation [facility] Immunizations Immunization Date Immunization Notes Care Provider Fa cility 01-11-2021 Covid (Pfizer) Dr. Bruce chapa Work Phone: [facility] 12-21-2020 Covid (Pfizer) Dr. Bruce chapa Work Phone: [facility] Payers Date Payer Category Payer Self-pay [id number] 2016 Unknown [id number] 2009 Medicare [id number] Unknown [id number] 2.16.8 [id number] Unknown [id number] 2.16.8 [id number] Unknown [id number] 2.16.8 40.1.852934.3.579.2.462 Unknown [id number] 2.16.8 40.1.596989.3.579.2.462 Unknown [id number] 2.16.8 40.1.170072.3.579.2.462 Unknown [id number] 2.16.8 40.1.101996.3.579.2.462 Unknown [id number] 2.16.8 40.1.966753.3.579.2.462 Unknown [id number] 2.16.8 40.1.371247.3.579.2.462 Unknown [id number] 2.16.8 40.1.763006.3.579.2.462 Unknown [id number] 2.16.8 40.1.815699.3.579.2.462 Unknown [id number] 2.16.8 40.1.944000.3.579.2.462 Unknown [id number] 2.16.8 40.1.835835.3.579.2.462 Unknown [id number] 2.16.8 40.1.647678.3.579.2.462 Unknown [id number] 2.16.8 40.1.516224.3.579.2.462 Unknown [id number] 2.16.8 40.1.275111.3.579.2.462 Unknown [id number] 2.16.8 40.1.748200.3.579.2.462 Unknown [id number] 2.16.8 40.1.962625.3.579.2.462 Unknown [id number] 2.16.8 40.1.967940.3.579.2.462 Unknown [id number] 2.16.8 40.1.086356.3.579.2.462 Unknown [id number] 2.16.8 40.1.742171.3.579.2.462 Unknown [id number] 2.16.8 40.1.933953.3.579.2.462 Unknown [id number] 2.16.8 40.1.373018.3.579.2.462 Unknown [id number] 2.16.8 40.1.932478.3.579.2.462 Unknown [id number] 2.16.8 40.1.139373.3.579.2.462 Unknown [id number] 2.16.8 40.1.891039.3.579.2.462 Social History Date Type Detail Facility Start: 01-03-2022 End: 11-28-2023 Tobacco smoking status NHIS Unknown if ever smoked [facility] Start: 09-19-2020 Non-smoker [facility] Start: 1945 Sex Assigned At Male [facility] Start: 11-16-2024 [facility] Clinical Notes 11-22-2024 to 03-04-2025 Note Date & Type Note Facility 03-04-2025 Evaluation note Diagnosis Onset Date Resolution Right knee DJD acute March 04, 2025 10:15am Benign essential tremor acute J une 2024 9:58am Epilepsy chronic March 22 9:58am Hyponatremia chronic March 22 9:58am Right knee DJD acute May 10:11am [facility] Work Phone: 1(754) 491-811605-09-2025 Evaluation note* Diagnosis Onset Date Resolution Status Admit Date 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 acute February 18, 2025 10:46am Right knee DJD acute March 04, 2025 10:15am Benign essential tremor acute J une 2024 9:58am Epilepsy chronic March 22 9:58am Hyponatremia chronic March 22 025 9:58am [facility] [employer] Work Phone: 1(800) 821-673302-21-2025 Evaluation note* Diagnosis Onset Date Resolution Status Admit Date Right knee DJD acute November 142024 10:13am DJD (degenerative joint disease) of cervical spine acute February 182024 10:46am Right knee DJD acute March 04, 2025 10:15am Benign essential tremor acute J une 2024 9:58am Epilepsy chronic March 22 9:58am Hyponatremia chronic March 22 025 9:58am [facility] Work Phone: 1(484) 385-609802-10-2025 Evaluation note* Diagnosis Onset Date Resolution Status Admit Date Lytic lesion of bone on x-ray acute November 22, 2024 11:48am MGUS (monoclonal gammopathy of unknown significance) chronic Februar y 2024 11:48am Right knee DJD acute November 142024 10:13am DJD (degenerative joint disease) of cervical spine acute February 182024 10:46am Right knee DJD acute March 04, 2025 10:15am [facility] Work Phone: Evaluation note* Diagnosis Onset Date Resolution Status Anemia acute MGUS (monoclonal gammopathy of unknown significance) chronic Hyponatremia chronic MGUS (monoclonal gammopathy of unknown significance) chronic Epilepsy [facility] Work Phone: Evaluation note* Diagnosis Onset Date Resolution Status Epilepsy chronic Hyponatremia chronic MGUS (monoclonal gammopathy of unknown significance) chronic MGUS (monoclonal gammopathy of unknown significance) [facility] Work Phone: Evaluation note* Diagnosis Onset Date Resolution Status Paroxysmal atrial flutter ac samish Sick sinus syndrome acute Cardiac pacemaker in situ ch ronic Unilateral primary osteoarthritis, right knee acute Unilateral primary osteoarthritis, right knee acute Unilateral primary osteoarthritis, right knee acute Unilateral primary osteoarthritis, right knee acute Hyperlipidemia acute Paroxysmal atrial flutter ac samish Sick sinus syndrome acute Cardiac pacemaker in situ ch ronic Epilepsy [facility] Work Phone: Evaluation note* Diagnosis Onset Date Resolution Status Unilateral primary osteoarthritis, right knee acute Unilateral primary osteoarthritis, right knee acute Unilateral primary osteoarthritis, right knee acute Hyperlipidemia acute Paroxysmal atrial flutter ac samish Sick sinus syndrome acute Cardiac pacemaker in situ ch ronic HTN (hypertension) chronic Sick sinus syndrome acute Cardiac pacemaker in situ ch ronic Epilepsy [facility] Work Phone: Evaluation note* Diagnosis Onset Date Resolution Status MGUS (monoclonal gammopathy of unknown significance) chronic Epilepsy chronic Paroxysmal atrial flutter ac samish Sick sinus syndrome acute Cardiac pacemaker in situ ch ronic Paroxysmal atrial flutter ac samish Sick sinus syndrome acute Cardiac pacemaker in situ [facility] Work Phone: Evaluation note* Diagnosis Onset Date Resolution Status Cardiac pacemaker in situ ch ronic Paroxysmal atrial flutter ch ronic Sick sinus syndrome chronic Contusion of hip and thigh a cute Lytic lesion of bone on x-ray acute MGUS (monoclonal gammopathy of unknown significance) chronic Hyponatremia chronic MGUS (monoclonal gammopathy of unknown significance) chronic Epilepsy chronic Lytic lesion of bone on x-ray acute MGUS (monoclonal gammopathy of unknown significance) chronic Right knee DJD acute [facility] Work Phone: Reason for referral (narrative)No reason for referral information available[facility] Work Phone: Chief Complaint and Reason for Visit Chief Complaint 6MO LABS ONC/HEM male pain FOLLOW UP R/S Reason for Visit Anemia MGUS (monoclonal gammopathy of unknown significance) Hyponatremia MGUS (monoclonal gammopathy of unknown significance) Epilepsy Chief Complaint male pain FOLLOW UP R/S ONC/HEM 6MO LABS PRIOR STENOSIS Reason for Visit Epilepsy Hyponatremia MGUS (monoclonal gammopathy of unknown significance) MGUS (monoclonal gammopathy of unknown significance) Chief Complaint 6 mos PPM f/u RIGHT KNEE xray right knee right knee right knee 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 Reason for Visit Paroxysmal atrial fl utter Sick sinus syndrome Cardiac pacemaker in situ Unilateral primary osteoarthritis, right knee Unilateral primary osteoarthritis, right knee Unilateral primary osteoarthritis, right knee Unilateral primary osteoarthritis, right knee Hyperlipidemia Paroxysmal atrial flutter Sick sinus syndrome Cardiac pacemaker in situ Epilepsy Chief Complaint RIGHT KNEE RIGHT KNEE RIGHT KNEE 6 M FU 6 mos PPM 6 M FU EORDER Reason for Visit Unilateral primary o steoarthritis, right knee Unilateral primary osteoarthritis, right knee Unilateral primary osteoarthritis, right knee Hyperlipidemia Paroxysmal atrial flutter Sick sinus syndrome Cardiac pacemaker in situ HTN (hypertension) Sick sinus syndrome Cardiac pacemaker in situ Epilepsy Chief Complaint 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 Reason for Visit MGUS (monoclonal rivas mopathy of unknown significance) Epilepsy Paroxysmal atrial flutter Sick sinus syndrome Cardiac pacemaker in situ Paroxysmal atrial flutter Sick sinus syndrome Cardiac pacemaker in situ Chief Complaint 3 mos remote PPM f/u XRAY RIGHT HIP RM 1 F/U PER DR FRANCIS NO LABS MYLENOMA 6 M FU 2WKS LABS PRIOR REVIEW PET RIGHT KNEE EORDER Reason for Visit Cardiac pacemaker in situ Paroxysmal atrial flutter Sick sinus syndrome Contusion of hip and thigh Lytic lesion of bone on x-ray MGUS (monoclonal gammopathy of unknown significance) Hyponatremia MGUS (monoclonal gammopathy of unknown significance) Epilepsy Lytic lesion of bone on x-ray MGUS (monoclonal gammopathy of unknown significance) Right knee DJD Chief Complaint Admit Date 1 YEAR LABS PRIOR November 22, 2024 11:48am RIGHT KNEE December 03, 2024 10:13am Pacer Check Remote December 15, 2024 4:44 am CERVICAL SPINE February 18, 2025 10:46a m Room 1 February 18, 2025 11:11a m RIGHT KNEE March 04, 2025 10:15 am 8 mo fu March 22, 2025 9:58 am Reason for Visit Admit Date Lytic lesion of bone on x-ray November 132024 11:48am MGUS (monoclonal gammopathy of unknown s ignificance) November 22, 2024 11:48am Right knee DJD December 03, 2024 10:13am 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 February 18, 2025 10:46am Right knee DJD March 04, 2025 10:15 am Chief Complaint Admit Date RIGHT KNEE December 03, 2024 10:13am Pacer Check Remote December 15, 2024 4:44 am CERVICAL SPINE February 18, 2025 10:46a m Room 1 February 18, 2025 11:11a m RIGHT KNEE March 04, 2025 10:15 am 8 mo fu March 22, 2025 9:58 am Reason for Visit Admit Date Right knee DJD December 03, 2024 10:13am 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 February 18, 2025 10:46am Right knee DJD March 04, 2025 10:15 am Benign essential tremor March 22, 2025 9:58am Epilepsy March 22, 2025 9:58 am Hyponatremia March 22, 2025 9:58 am Chief Complaint Admit Date RIGHT KNEE December 03, 2024 10:13am Pacer Check Remote December 15, 2024 4:44 am CERVICAL SPINE February 18, 2025 10:46a m Room 1 February 18, 2025 11:11a m RIGHT KNEE March 04, 2025 10:15 am Pacer Check Remote March 16, 2025 4:31a m 8 mo fu March 22, 2025 9:58 am Chief Complaint Admit Date CERVICAL SPINE February 18, 2025 10:46a m Room 1 February 18, 2025 11:11a m RIGHT KNEE March 04, 2025 10:15 am Pacer Check Remote March 16, 2025 4:31a m 8 mo fu March 22, 2025 9:58 am right knee June 06, 2025 10 :11am Reason for Visit Admit Date 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 February 18, 2025 10:46am Right knee DJD March 04, 2025 10:15 am Benign essential tremor March 22, 2025 9:58am Epilepsy March 22, 2025 9:58 am Hyponatremia March 22, 2025 9:58 am Chief Complaint Admit Date RIGHT KNEE March 04, 2025 10:15 am Pacer Check Remote March 16, 2025 4:31a m 8 mo fu March 22, 2025 9:58 am right knee June 06, 2025 10 :11am Pacer Check Remote June 15, 2025 4:31am Reason for Visit Admit Date Right knee DJD March 04, 2025 10:15 am Benign essential tremor March 22, 2025 9:58am Epilepsy March 22, 2025 9:58 am Hyponatremia March 22, 2025 9:58 am Right knee DJD June 06, 2025 10 :11am Family History No Family History Records Found Relationship Condition Age at Onset Recorded Date/T shayna mother Cerebrovascular accident (CVA) Unknown Diabetes mellitus Unknown father Hypertension Unknown Advance Directives No Advanced Directives Records Found Advance Directive Response Recorded Date/ Time Living Will Yes December 16, 2021 2:42pm Power of Mascara Molder Yes December 16 2:42pm Advance Directive Response Recorded Date/ Time Living Will Yes February 16, 2023 10 :27pm Power of Mascara M[employer] Yes February 16, 2023 10:27pm Advance Directive Response Recorded Date/ Time Living Will Yes February 16, 2023 9: 27pm Power of Mascara M[employer] Yes February 16, 2023 9:27pm Advance Directive Response Recorded Date/ Time Living Will Yes February 16, 2023 10 :27pm Do you have a Healthcare Power of Mascara Molder? Yes February 16, 2023 10:27pm Summary Purpose Additional Source Comments Goals (unrecognized section and content) Goals may be documented in a n alternate sectionGoals may be documented in an alternate sectionGoals may be documented in an alternate sectionGoals may be documented in an alternate sectionGoals may be documented in an alternate sectionGoals may be documented in an alternate sectionGoals may be documented in an alternate sectionGoals may be documented in an alternate sectionGoals may be documented in an alternate sectionGoals may be documented in an alternate sectionGoals may be documented in an alternate section Care Teams (unrecognized sec tion and content) Team Status: Active Member Role Status Dates Dr. Bruce Washington MD Family Provider Active Dr. Bruce Washington MD Primary Care Provider Active Team Status: Inactive Member Role Status Dates Dr. Bruce Washington MD Primary Care Provider, Referring Provider Active Mary Paredes Active Dr. Ruperto Baumann MD Attending Provider Active Team Status: Inactive Member Role Status Dates Dr. Bruce Washington MD Primary Care Provider, Referring Provider Active Dr. Ruperto Baumann MD Attending Provider Active Team Status: Inactive Member Role Status Dates Dr. Bruce Washington MD Primary Care Provider, Referring Provider Active Dr. Pool White MD Attending Provider Active Team Status: Inactive Member Role Status Dates Dr. Bruce Washington MD Primary Care Provider, Referring Provider Active Dr. Curtis Francis DO Attending Provider Active Team Status: Inactive Member Role Status Dates Dr. Bruce Washington MD Primary Care Provider Active Dr. Pool White MD Attending Provider, Referring Provider Active Team Status: Active Member Role Status Dates Dr. Bruce Washington MD Family Provider Active Dr. Socrates Kumar DO Primary Care Provider Active Team Status: Inactive Member Role Status Dates Dr. Bruce Washington MD Referring Provider Active Mary Paredes Attending Provider Active Dr. Socrates Kumar DO Primary Care Provider Active Team Status: Inactive Member Role Status Dates Dr. Bruce Washington MD Referring Provider Active Dr. Pool White MD Attending Provider Active Dr. Socrates Kumar DO Primary Care Provider Active Team Status: Inactive Member Role Status Dates Dr. Curtis Ross MD Attending Provider Active Dr. Socrates Kumar DO Primary Care Provider, Referrin g Provider Active Team Status: Inactive Member Role Status Dates Dr. Socrates Kumar DO Primary Care Provider, Referrin g Provider Active Mary Paredes Attending Provider Active Team Status: Inactive Member Role Status Dates Dr. Socrates Kumar DO Primary Care Provider Active Dr. Pool White MD Attending Provider, Referring Provider Active Team Status: Inactive Member Role Status Dates Dr. Socrates Kumar DO Primary Care Provider, Referrin g Provider Active Dr. Pool White MD Attending Provider Active Team Status: Inactive Member Role Status Dates Dr. Socrates Kumar DO Primary Care Provider Active Dr. Azeem Dumont MD Attending Provider Active Team Status: Inactive Member Role Status Dates Dr. Socrates Kumar DO Primary Care Provider, Referrin g Provider Active Dr. Curtis Francis DO Attending Provider Active Team Status: Inactive Member Role Status Dates Dr. Socrates Kumar DO Primary Care Provider, Referrin g Provider Active Dr. Curtis Ross MD Attending Provider Active Team Status: Active Member Role Status Dates Dr. Bruce Washington MD Family Provider Active Dr. Curtis Ross MD Attending Provider Active Dr. Socrates Kumar DO Primary Care Provider, Referrin g Provider Active Team Status: Active Member Role Status Dates Dr. Socrates Kumar DO Primary Care Provider Active Team Status: Inactive Member Role Status Dates Dr. Socrates Kumar DO Primary Care Provider Active Start: November 22, 2024 End: November 22, 2024 Dr. Socrates Kumar DO Referring Provider Active Start: November 22, 2024 End: November 22, 2024 Ely Kenyon NP, WATCHMAKER APPRENTICE-C Attending Provider Active Start: November 22, 2024 End: November 22, 2024 Team Status: Inactive Member Role Status Dates Dr. Socrates Kumar DO Primary Care Provider Active Start: December 03, 2024 End: December 03, 2024 Dr. Socrates Kumar DO Referring Provider Active Start: December 03, 2024 End: December 03, 2024 Dr. Curtis Francis DO Attending Provider Active Start: December 03, 2024 End: December 03, 2024 Team Status: Inactive Member Role Status Dates Dr. Socrates Kumar DO Primary Care Provider Active Start: December 15, 2024 End: December 15, 2024 Dr. Azeem Dumont MD Attending Provider Active S tart: December 15, 2024 End: December 15, 2024 Team Status: Inactive Member Role Status Dates Dr. Socrates Kumar DO Primary Care Provider Active Start: February 18, 2025 End: February 18, 2025 Dr. Socrates Kumar DO Referring Provider Active Start: February 18, 2025 End: February 18, 2025 LEONELA Woods Attending Provider Active Star t: February 18, 2025 End: February 18, 2025 Team Status: Inactive Member Role Status Dates Dr. Socrates Kumar DO Primary Care Provider Active Start: February 18, 2025 End: February 18, 2025 Dr. Azeem Dumont MD Attending Provider Active S tart: February 18, 2025 End: February 18, 2025 Team Status: Inactive Member Role Status Dates Dr. Socrates Kumar DO Primary Care Provider Active Start: March 04, 2025 End: March 04, 2025 Dr. Socrates Kumar DO Referring Provider Active Start: March 04, 2025 End: March 04, 2025 Dr. Curtis Francis DO Attending Provider Active Start: March 04, 2025 End: March 04, 2025 Team Status: Active Member Role Status Dates Dr. Socrates Kumar DO Primary Care Provider Active Start: March 17, 2025 Dr. Jacobo Alex DPM Attending Provider Active Start: March 17, 2025 Dr. Jacobo Alex DPM Referring Provider Active Start: March 17, 2025 Team Status: Inactive Member Role Status Dates Dr. Socrates Kumar DO Primary Care Provider Active Start: March 22, 2025 End: March 22, 2025 Dr. Socrates Kumar DO Referring Provider Active Start: March 22, 2025 End: March 22, 2025 Dr. Pool White MD Attending Provider Active Start: March 22, 2025 End: March 22, 2025 Team Status: Inactive Member Role Status Dates Dr. Socrates Kumar DO Primary Care Provider Active Start: March 17, 2025 End: March 17, 2025 Dr. Jacobo Alex DPM Attending Provider Active Start: March 17, 2025 End: March 17, 2025 Dr. Jacobo Alex DPM Referring Provider Active Start: March 17, 2025 End: March 17, 2025 Team Status: Inactive Member Role Status Dates Dr. Socrates Kumar DO Primary Care Provider Active Start: March 16, 2025 End: March 16, 2025 Dr. Azeem Dumont MD Attending Provider Active S tart: March 16, 2025 End: March 16, 2025 Team Status: Active Member Role/Relationship Status Dates Dr. Socrates Kumar DO Primary Care Provider Active Team Status: Inactive Member Role/Relationship Status Dates Dr. Socrates Kumar DO Primary Care Provider Active Start: February 18, 2025 End: February 18, 2025 Dr. Socrates Kumar DO Referring Provider Active Start: February 18, 2025 End: February 18, 2025 LEONELA Woods Attending Provider Active Star t: February 18, 2025 End: February 18, 2025 Team Status: Inactive Member Role/Relationship Status Dates Dr. Socrates Kumar DO Primary Care Provider Active Start: February 18, 2025 End: February 18, 2025 Dr. Azeem Dumont MD Attending Provider Active S tart: February 18, 2025 End: February 18, 2025 Team Status: Inactive Member Role/Relationship Status Dates Dr. Socrates Kumar DO Primary Care Provider Active Start: March 04, 2025 End: March 04, 2025 Dr. Socrates Kumar DO Referring Provider Active Start: March 04, 2025 End: March 04, 2025 Dr. Curtis Francis DO Attending Provider Active Start: March 04, 2025 End: March 04, 2025 Team Status: Inactive Member Role/Relationship Status Dates Dr. Socrates Kumar DO Primary Care Provider Active Start: March 16, 2025 End: March 16, 2025 Dr. Azeem Dumont MD Attending Provider Active S tart: March 16, 2025 End: March 16, 2025 Team Status: Inactive Member Role/Relationship Status Dates Dr. Socrates Kumar DO Primary Care Provider Active Start: March 17, 2025 End: March 17, 2025 Dr. Jacobo Alex DPM Attending Provider Active Start: March 17, 2025 End: March 17, 2025 Dr. Jacobo Alex DPM Referring Provider Active Start: March 17, 2025 End: March 17, 2025 Team Status: Inactive Member Role/Relationship Status Dates Dr. Socrates Kumar DO Primary Care Provider Active Start: March 22, 2025 End: March 22, 2025 Dr. Socrates Kumar DO Referring Provider Active Start: March 22, 2025 End: March 22, 2025 Dr. Pool White MD Attending Provider Active Start: March 22, 2025 End: March 22, 2025 Team Status: Inactive Member Role/Relationship Status Dates Dr. Socrates Kumar DO Primary Care Provider Active Start: June 06, 2025 End: June 06, 2025 Dr. Socrates Kumar DO Referring Provider Active Start: June 06, 2025 End: June 06, 2025 Dr. Curtis Francis DO Attending Provider Active Start: June 06, 2025 End: June 06, 2025 Team Status: Inactive Member Role/Relationship Status Dates Dr. Socrates Kumar DO Primary Care Provider Active Start: March 04, 2025 End: March 04, 2025 Dr. Socrates Kumar DO Referring Provider Active Start: March 04, 2025 End: March 04, 2025 Dr. Curtis Francis DO Attending Provider Active Start: March 04, 2025 End: March 04, 2025 Team Status: Inactive Member Role/Relationship Status Dates Dr. Socrates Kumar DO Primary Care Provider Active Start: March 16, 2025 End: March 16, 2025 Dr. Azeem Dumont MD Attending Provider Active S tart: March 16, 2025 End: March 16, 2025 Team Status: Inactive Member Role/Relationship Status Dates Dr. Socrates Kumar DO Primary Care Provider Active Start: March 17, 2025 End: March 17, 2025 Dr. Jacobo Alex DPM Attending Provider Active Start: March 17, 2025 End: March 17, 2025 Dr. Jacobo Alex DPM Referring Provider Active Start: March 17, 2025 End: March 17, 2025 Team Status: Inactive Member Role/Relationship Status Dates Dr. Socrates Kumar DO Primary Care Provider Active Start: March 22, 2025 End: March 22, 2025 Dr. Socrates Kumar DO Referring Provider Active Start: March 22, 2025 End: March 22, 2025 Dr. Pool White MD Attending Provider Active Start: March 22, 2025 End: March 22, 2025 Team Status: Inactive Member Role/Relationship Status Dates Dr. Socrates Kumar DO Primary Care Provider Active Start: June 06, 2025 End: June 06, 2025 Dr. Socrates Kumar DO Referring Provider Active Start: June 06, 2025 End: June 06, 2025 Dr. Curtis Francis DO Attending Provider Active Start: June 06, 2025 End: June 06, 2025 Team Status: Inactive Member Role/Relationship Status Dates Dr. Socrates Kumar DO Primary Care Provider Active Start: June 15, 2025 End: June 15, 2025 Dr. Azeem Dumont MD Attending Provider Active S tart: June 15, 2025 End: June 15, 2025 (unrecognized sect ion and content) No Status Records Found INFORMATION SOURCE (unrecogn ized section and content) DATE CREATED AUTHOR 06/22/2025 [facility] FOR RECORDS PERTAINING TO PATIENTS WHO ARE OR HAVE BEEN ENROLLED IN A CHEMICAL DEPENDENCY/SUBSTANCEABUSE PROGRAM, SOME INFORMATION MAY BE OMITTED. This clinical summary was aggregated from multiple sources. Caution should be exercised in using it in the provision of clinical care. This summary normalizes information from multiple sources, and as a consequence, information in this document may materially change the coding, format and clinical context of patient data. In addition, data may be omitted in some cases. CLINICAL DECISIONS SHOULD BE BASED ON THE PRIMARY CLINICAL RECORDS. [employer] provides no warranty or guarantee of the accuracy or completeness of information in this document.
[2025-08-11 14:28] LABS: Hematocrit 36.0 % (40-54); Hemoglobin 12.9 g/dL (13.0-16.5); Mean Corp Hgb Conc 35.8 g/dL (32-36); Mean Corpuscular Volume 88.5 fL (80-94); Mean Platelet Vol. 8.9 fl (6.2-12.0); Platelet Count 280 K/mm3 (150-450); RBC Distribution Width CV 12.5 % (11.6-14.6); RBC Distribution Width SD 41.0 fl (35.1-43.9); Red Blood Count 4.07 M/mm3 (4.6-6.2); White Blood Count 11.6 K/mm3 (4.4-11.0)
[2025-08-11 14:41] LABS: Prothrombin Time (Protime)PT. 14.2 SECONDS (11.7-14.9)
[2025-08-11 15:05] LABS: Anion Gap 10 (5-15); BUN 16 mg/dL (4-19); BUN/Creat Ratio 15.8 RATIO (10-20); Calcium,Total 9.1 mg/dL (7.6-11.0); Carbon Dioxide 24.5 mmol/L (21.0-32.0); Chloride 91 mmol/L (98-108); Glucose 124 mg/dL (70-99); Potassium 3.9 mmol/L (3.3-5.1)
[2025-08-11 16:02] LABS: Color, Urine Yellow (Yellow); Glucose, Dipstick Normal (Normal); Ketone-Dipstick Negative (Negative); Leukocyte Esterase-Dipstick 100 /ul (Negative); Nitrite-Dipstick Negative (Negative); Occult Blood-Urine Negative /ul (Negative); Protein-Dipstick 30 mg/dl (Negative); Specific Gravity, Urine 1.010 (1.002-1.030); Urine Bilirubin Dipstick Negative (Negative)
[2025-08-11 22:14] LABS: Squamous Epithelial Cells - UA 0-5 SEEN /hpf (0-5)
[2025-08-11 22:52] LABS: Red Blood Cells-Urine 0-5 SEEN /hpf (0-5)
== END | disposition home or self-care (01) ==
PROVIDERS: Nurse Practitioner Family; PCP Family Medicine; Referring Provider Internal Medicine Cardiovascular Disease; Visit Provider Internal Medicine Cardiovascular Disease
DX: I48.92 Unspecified atrial flutter (principal); I49.5 Sick sinus syndrome; Z95.0 Presence of cardiac pacemaker
CPT/HCPCS: 36415; 80048; 81001; 85027; 85610

== ENCOUNTER 2025-09-05 10:55 | Day surgery (SDC) | payer MEDICARE, OTHER, SELFPAY ==
--- NOTE | 2025-08-11 14:25 | RAD_ITS ---
PROCEDURE: CHEST PA AND LATERAL 08/11/2025 REASON FOR EXAM: FOR PPM GENERATOR CHANGE TECHNIQUE: Procedure Code: RADCXR Modality: DX Procedure: CHEST PA AND LATERAL COMPARISON: None available. FINDINGS: The lungs are adequately aerated bilaterally without pleural effusion, pneumothorax, or focal airspace disease. Coarse pulmonary markings throughout with right-sided cardiac pacemaker. Degenerative changes of the shoulders and spine. RAD/Chest PA and Lateral IMPRESSION: No evidence of acute cardiopulmonary abnormality. Reading Location: [id number]
[2025-09-02 09:35] VITALS: BMI 20.3
--- NOTE | 2025-09-05 14:01 | CL.IE_ITS ---
Patient: FELI CASTILLO Study Date: 09/05/2025 Performing: Azeem Dumont MD : Age: Gender: male PROCEDURES PERFORMED LP07-([id number])BATTERY REMOVAL+REPLACEMENT PACER-DUAL LEAD INDICATIONS Sinoatrial node dysfunction/Sick sinus syndrome PROCEDURE DETAILS The patient was brought to the Catheterization Lab in the postabsorptive nonsedated state. Informed consent was obtained prior to the procedure. Local anesthetic was given subcutaneously to the right subclavian region with Lidocaine 2%. Incision was made to the right upper chest. The old PPM generator was removed. The new PPM generator was attached to the lead(s) and inserted into the pocket in a tyrx (an absorbable anitbacterial envelope). Device pocket was irrigated with antibiotic, Ancef 1 GM. Subcutaneous closure was completed with 3-0 Vicryl. Skin closure was completed with 4-0 Vicryl. Instrument, sponge, and needle counts were noted to be normal. The patient tolerated the procedure well. 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 Ancef 2 Gm IV @ 09/05/2025 13:06:26 Signed By Azeem Dumont MD On 09/05/2025 14:01:03 Azeem Dumont MD
== END 2025-09-05 15:00 | disposition home or self-care (01) ==
PROVIDERS: PCP Family Medicine; Referring Provider Internal Medicine Cardiovascular Disease; Visit Provider Internal Medicine Cardiovascular Disease
DX: Z45.010 Encounter for checking and testing of cardiac pacemaker pulse generator [battery] (principal); I49.5 Sick sinus syndrome; I48.0 Paroxysmal atrial fibrillation; E78.00 Pure hypercholesterolemia, unspecified; I25.10 Atherosclerotic heart disease of native coronary artery without angina pectoris; K21.9 Gastro-esophageal reflux disease without esophagitis; Z87.891 Personal history of nicotine dependence; E87.1 Hypo-osmolality and hyponatremia
CPT/HCPCS: 33228; 71046; 99152; 99153